=== PATIENT | male | born 1950 | race Caucasian/White ===

== ENCOUNTER 2024-06-04 15:50 | Inpatient (IN) | payer MEDICARE, BC, SELFPAY ==
[2024-06-04] VITALS (19 sets, daily range): BP systolic 150–193; BP diastolic 73–116; PULSE 74–101; RESP 16–21; TEMP 36.7; O2SAT 92–98; BMI 37.5; BMI 37.4
--- NOTE | 2024-06-04 15:50 | ECG_ITS ---
APPROVED REPORT Exam: Resting ECG HR:76 bpm ECG Measurements Heart Rate 76 AXES TX 192 P 40 QRSd 102 QRS -35 QT 396 T 13 QTc 427 Conclusion SINUS RHYTHM INDETERMINATE AXIS SEPTAL MYOCARDIAL INFARCTION , OF INDETERMINATE AGE [40+ ms Q WAVE IN V1/V2] No STEMI Electronically signed by : STARLA EPSTEIN, 06/05/2024 03:35:30
--- NOTE | 2024-06-04 16:28 | XR_ITS ---
PROCEDURE INFORMATION: Exam: XR Chest Exam date and time: 06/04/2024 4:39 PM Age: 74 years old Clinical indication: Other: Chest pain TECHNIQUE: Imaging protocol: Radiologic exam of the chest. Views: 1 view. COMPARISON: No relevant prior studies available. FINDINGS: Lungs: Unremarkable. No consolidation. Pleural spaces: Unremarkable. No pleural effusion. No pneumothorax. Heart/Mediastinum: Unremarkable. No cardiomegaly. Vasculature: Ectatic aorta. Bones/joints: Unremarkable. IMPRESSION: Ectatic aorta.
--- NOTE | 2024-06-04 16:39 | PC.NURSE ---
PORTABLE CHEST XRAY AT BEDSIDE
[2024-06-04 16:40] LABS: Basophils % 0.2 % (0.1-2.0); Eosinophils # 0.2 K/mm3 (0.0-0.4); Eosinophils % 1.8 % (0.1-12.0); Hemoglobin 14.7 g/dL (14.1-18.0); Lymphocytes # 1.5 K/mm3 (0.7-4.5); Lymphocytes % 17.7 % (10-50); Mean Corpuscular HGB Conc 33.4 g/dL (31.8-35.4); Mean Corpuscular Hemoglobin 28.5 pg (27.0-31.2); Mean Corpuscular Volume 85.3 fl (80-94); Mean Platelet Volume 9.9 fl (7.4-10.4); Monocytes # 0.9 K/mm3 (0.1-1.0); Monocytes % 11.2 % (1.7-9.3); Neutrophils # 5.8 K/mm3 (1.8-7.8); Neutrophils % 68.9 % (37.0-80.0); Platelet Count 267 K/mm3 (142-424); Red Blood Count 5.16 M/mm3 (4.60-6.20); Red Cell Distribution Width 13.2 % (11.5-17.5); White Blood Count 8.4 K/mm3 (4.8-10.8)
[2024-06-04 16:41] LABS: Albumin Level 4.4 g/dl (3.5-5.0); Chloride 105 mmol/L (98-107); Sodium 139 mmol/L (136-145)
[2024-06-04 16:42] LABS: Potassium 3.8 mmoL/L (3.5-5.1)
[2024-06-04 16:44] LABS: Alanine Aminotransferase 48 U/L (12-78); Albumin/Globulin Ratio 1.6 (1.1-1.8); Alkaline Phosphatase 71 U/L (38-126); Anion Gap 11.8 mEq/L (5-15); Aspartate Amino Transferase 48 U/L (17-59); Bilirubin,Total 0.5 mg/dl (0.2-1.3); Blood Urea Nitrogen 14 mg/dl (9-20); Carbon Dioxide 26 mmol/L (22.0-30.0); Creatinine Clearance Estimated 112 mL/min (50-200); Estimated Glomerular Filt Rate 65 ml/min (>60); GFR (African American) 79 ML/MIN (>60); Globulin 2.8 g/dL (1.3-3.2); Total Protein,Serum 7.2 g/dl (6.3-8.2)
[2024-06-04 16:45] LABS: Calcium 9.3 mg/dl (8.4-10.2); Glucose 133 mg/dl (74-100)
[2024-06-04 16:54] LABS: Microscopic, Urine URINE MICROSCOPIC (MICROSCOPIC)
[2024-06-04 16:56] LABS: Appearance,Urine CLEAR (Clear); Bilirubin,Urine Negative (Negative); Blood, Urine Negative (Negative); Color,Urine YELLOW (Yellow); Glucose,Urine (UA) Negative (Negative); Ketones,Urine Negative (Negative); Leukocyte Esterase,Urine TRACE (Negative); Nitrate,Urine Negative (Negative); PH,Urine 6.5 (5.0-8.5); Protein,Urine Negative (Negative); Urobilinogen,Urine 0.2 EU/dl (0.2)
--- NOTE | 2024-06-04 17:07 | ED_ITS ---
Discharge Plan Disposition Patient Disposition: Admitted Clinical Impressions Clinical Impression: Chest pain, ACS (acute coronary syndrome) Discharge ED Provider: Chicho Parra General Chief Complaint: Chest Pain Stated Complaint: CHEST PAIN Time Seen by Provider: 06/04/24 16:12 Mode of Arrival: Ambulatory Source of Information: Patient Description of Symptoms (Recalled from ER Triage Doc. by RN): pt presents to the er today L sided chest pain, jaw pain, L sided shoulder/ back pain, and shortness of breath for a week, states he was seen [facility] a week ago and dc from er, chest pain has been constant rating it 4/10 and hasn't gotten any better since last week, took 325 aspirin and 3 nitro today with minimal relief, has had 3 coronary stents placed in the past, sees dr rivas for cardiology, denies hx [place] History of Present Illness HPI narrative: Patient is 74-year-old male with past medical history of coronary artery disease status post stenting x 3 who presents to the emergency department for evaluation of chest pain. Onset was acute over a week ago, stuttering, does not have any particular inciting factors. He went to [place] where he was evaluated and deemed appropriate for discharge home. Due to persistent symptoms he comes here for continued evaluation. The chest pain goes through to his left shoulder blade as when he had his previous chest pain episodes that required stenting. No trauma. No other acute complaints at this time. Please note that above description of symptoms, in this electronic medical record under categorization of recalled from ER triage doctor by RN are reflective of an initial nursing assessment, however, is not reflective of my full history and physical exam that was personally taken and clarified. Consequentially, this preceding description of symptoms, which may include the patient's categorized chief complaint in the EMR, do not reflect my personal clinical impression, and the ultimate description of history of present illness and patient stated complaints should be deferred to this section of the note. Unless stated otherwise or congruent with this section of the note, additional signs, symptoms, or incongruence should be interpreted as inaccurate with my clinical impression. Related Data Home Medications ?Medication ?Instructions ?Recorded ?Confirmed amiodarone 200 mg tablet 200 mg PO DAILY 06/04/24 06/04/24 amlodipine 5 mg tablet 5 mg PO DAILY 06/04/24 06/04/24 carvedilol 3.125 mg tablet 3.125 mg PO BID 06/04/24 06/04/24 clopidogrel 75 mg tablet (Plavix) 75 mg PO DAILY 06/04/24 06/04/24 ezetimibe 10 mg tablet 10 mg PO DAILY 06/04/24 06/04/24 losartan 50 mg tablet 50 mg PO BID 06/04/24 06/04/24 rivaroxaban 10 mg tablet (Xarelto) 10 mg PO DAILY 06/04/24 06/04/24 sitagliptin phosphate 50 mg tablet 50 mg PO DAILY 06/04/24 06/04/24 (Januvia) Allergies Allergy/AdvReac Type Severity Reaction Status Date / Time Lnunpee-YLA-MeM Reductase Allergy Muscle Pain Verified 06/04/24 16:18 Inhibitor sulfamethoxazole (From Allergy Swelling Verified 06/04/24 16:18 Bactrim) of Lip/Tongue/Throat trimethoprim (From Bactrim) Allergy Swelling Verified 06/04/24 16:18 of Lip/Tongue/Throat PFSH ON LICENSE OF [facility] Disclaimer: The information contained in this section may have been updated after the patient was seen, as this information can be updated by other users. Medical History (Updated 06/04/24 @ 23:17 by Chicho Parra MD) Type 2 diabetes mellitus Hypertension A-fib History of colon cancer Social History Smoking Status: Never smoker alcohol intake: never current occupational status: other Travel in the last 8 weeks: None ROS Obtained: Yes Systems reviewed as appropriate & no additional complaints except as documented Physical Exam General General appearance: alert and in no apparent distress Head Head exam: atraumatic and normocephalic Eye Eye exam: Present PERRL ENT ENT exam: Present mucous membranes moist Neck Neck exam: Present normal inspection Chest Chest inspection: Present normal inspection and symmetric chest wall rise Respiratory Respiratory exam: Present normal lung sounds bilaterally; Absent respiratory distress Cardiovascular Cardiovascular exam: Present regular rate and normal rhythm Abdominal Exam Abdominal exam: Present soft; Absent tenderness Extremities Exam Extremities exam: Present normal inspection Neurological Exam Neurological exam: Present alert Psychiatric Psychiatric exam: Present normal affect Skin Skin exam: Present warm and dry HEART Score HEART Score HEART Score assessment performed?: Yes History (anamnesis): Highly suspicious ECG: Non-specific disturbance Age: >65 years Risk factors: Atherosclerosis history Troponin: > 3x normal limit HEART Score: 9 Critical Care Critical Care Time Critical Care Time: Yes Attestation: On 06/04/24, the high probability of a clinically significant, sudden or life threatening deterioration of the following system(s) required my full and direct attention, intervention and personal management. The time I documented below is in addition to time spent performing reported procedures but includes the following listed in this critical care notation. Total Time Total Critical Care Time: 35 Medical Decision Making Yung Inquiry Pt receiving controlled substance: No Vital Signs Vital Signs: 06/04/24 16:05 06/04/24 16:07 06/04/24 16:11 Temperature 98.1 F 98.1 F Temperature Source Oral Oral Pulse Rate 75 Pulse Rate [Left Radial] 81 75 Respiratory Rate 17 18 Blood Pressure Blood Pressure [Right Arm] 177/82 H 158/73 H Blood Pressure Mean Blood Pressure Mean [Right Arm] 113 101 Blood Pressure Source Blood Pressure Source [Right Arm] Automatic Cuff Automatic Cuff Blood Pressure Position Blood Pressure Position [Right Arm] Sitting Sitting 02 Sat by Pulse Oximetry 98 96 Oxygen Delivery Method Room Air Room Air 06/04/24 17:23 06/04/24 18:17 06/04/24 18:31 Temperature Temperature Source Pulse Rate 75 74 76 Pulse Rate [Left Radial] Respiratory Rate 20 17 Blood Pressure 150/96 H 151/84 H 171/87 H Blood Pressure [Right Arm] Blood Pressure Mean 105 Blood Pressure Mean [Right Arm] Blood Pressure Source Blood Pressure Source [Right Arm] Blood Pressure Position Blood Pressure Position [Right Arm] 02 Sat by Pulse Oximetry 97 97 97 Oxygen Delivery Method Room Air Room Air 06/04/24 19:01 06/04/24 19:22 06/04/24 19:39 Temperature 98.1 F Temperature Source Oral Pulse Rate 75 84 Pulse Rate [Left Radial] Respiratory Rate 16 21 Blood Pressure 150/87 H 150/87 H Blood Pressure [Right Arm] Blood Pressure Mean 113 Blood Pressure Mean [Right Arm] Blood Pressure Source Automatic Cuff Blood Pressure Source [Right Arm] Blood Pressure Position Supine Blood Pressure Position [Right Arm] 02 Sat by Pulse Oximetry 94 L Oxygen Delivery Method Room Air Room Air Lab Data Labs: Lab Results 06/04/24 16:10: WBC 8.4, RBC 5.16, Hgb 14.7, Hct 44.0, MCV 85.3, MCH 28.5, MCHC 33.4, RDW 13.2, Plt Count 267, MPV 9.9, Neut % (Auto) 68.9, Lymph % (Auto) 17.7, [place] % (Auto) 11.2 H, Eos % (Auto) 1.8, Baso % (Auto) 0.2, Neut # (Auto) 5.8, Lymph # (Auto) 1.5, [place] # (Auto) 0.9, Eos # (Auto) 0.2, Baso # (Auto) 0.0, Sodium 139, Potassium 3.8, Chloride 105, Carbon Dioxide 26, Anion Gap 11.8, BUN 14, Creatinine 1.10, Estimated Creat Clear 112, Estimated GFR 65, Est GFR ( Amer) 79, Glucose 133 H, Calcium 9.3, Total Bilirubin 0.5, AST 48, ALT 48, Alkaline Phosphatase 71, Troponin I 1.70 H, Total Protein 7.2, Albumin 4.4, Globulin 2.8, Albumin/Globulin Ratio 1.6, HCV Ab ARTHUR w/Rflx PCR Qn Negative, HIV Ag/Ab Combo Qual Negative 06/04/24 16:45: Urine Color Yellow, Urine Appearance Clear, Urine pH 6.5, Ur Specific Girard 1.020, Urine Protein Negative, Urine Glucose (UA) Negative, Urine Ketones Negative, Urine Blood Negative, Urine Nitrate Negative, Urine Bilirubin Negative, Urine Urobilinogen 0.2, Ur Leukocyte Esterase Trace, Urine RBC None, Urine WBC 3-5, Ur Squamous Epith Cells None, Urine Bacteria None 06/04/24 18:46: Sodium 137, Potassium 3.7, Chloride 104, Carbon Dioxide 25, Anion Gap 11.7, BUN 13, Creatinine 1.10, Estimated Creat Clear 112, Estimated GFR 65, Est GFR ( Amer) 79, Glucose 114 H, Calcium 8.9, Troponin I 2.20 H 06/04/24 16:10 06/04/24 18:46 Response Orders (Tests/Meds): ED MEDICATIONS Generic Name Dose Route Start Last Admin Trade Name Freq PRN Reason Stop Dose Admin Amiodarone HCl 200 mg 06/05/24 09:00 Amiodarone 200mg Tablet PO 07/05/24 08:59 DAILY BONITA Amlodipine Besylate 5 mg 06/05/24 09:00 Amlodipine 5mg Tablet PO 07/05/24 08:59 DAILY BONITA Aspirin 81 mg 06/05/24 09:00 Aspirin Ec 81mg Tablet PO 07/05/24 08:59 DAILY BONITA Carvedilol 6.25 mg 06/04/24 21:45 06/04/24 22:50 Carvedilol 6.25mg Tablet PO 07/04/24 21:44 6.25 mg BID BONITA Administration Clopidogrel Bisulfate 75 mg 06/05/24 09:00 Clopidogrel 75mg Tab PO 07/05/24 08:59 DAILY BONITA Ezetimibe 10 mg 06/05/24 09:00 Ezetimibe 10mg Tablet PO 07/05/24 08:59 DAILY BONITA Fentanyl Citrate 50 mcg 06/04/24 19:27 06/04/24 20:26 Fentanyl 100mcg/2ml Vial IV 06/05/24 07:28 100 mcg Q3MINP PRN Administration Sedation Fentanyl Citrate 25 mcg 06/04/24 19:27 Fentanyl 100mcg/2ml Vial IV 06/05/24 07:28 Q3MINP PRN Sedation Flumazenil 0.2 mg 06/04/24 19:27 Flumazenil 0.1mg/Ml 5ml Vial IV 06/05/24 07:28 NEEDED PRN Sedation Heparin Sodium (Porcine) 10,000 unit 06/04/24 19:27 06/04/24 20:26 Heparin 1,000 Units/Ml 10ml Vial (Product Strategy Director) IV 06/04/24 23:28 13,600 unit NEEDED PRN Administration Emergency Box Toe Pounder Hydralazine HCl 20 mg 06/04/24 19:27 Hydralazine 20mg/Ml Vial IV 06/04/24 23:28 ONCE PRN sbp>160 Nitroglycerin/Dextrose 250 mls @ 1.5 mls/hr 06/04/24 17:30 06/04/24 18:36 Nitroglycerin 50mg/250ml D5w IV 07/04/24 17:29 10 mcg/min .Q24H BONITA 3 mls/hr Titration Protocol 5 MCG/MIN Adenosine 180 mg/ Sodium 90 mls @ 734.821 mls/hr 06/04/24 19:27 Chloride IV 06/04/24 23:28 ONCE PRN fractional flow reserve 180 MCG/KG/MIN Adenosine 90 mg/ Sodium 90 mls @ 1,469.642 mls/hr 06/04/24 19:27 Chloride IV 06/04/24 23:28 ONCE PRN fractional flow reserve 180 MCG/KG/MIN Sodium Chloride 1,000 mls @ 25 mls/hr 06/04/24 19:30 06/04/24 22:32 Sod Chloride 0.9% 500ml Bag IV 06/05/24 19:28 Not Given .Q25H BONITA Irbesartan 75 mg 06/05/24 09:00 Irbesartan 75mg Tablet PO 07/05/24 08:59 BID BONITA Labetalol HCl 20 mg 06/04/24 19:27 Labetalol 20mg/4ml Syringe IV 06/04/24 23:28 ONCE PRN sbp>160 Midazolam HCl 1 mg 06/04/24 19:27 Midazolam 2mg/2ml Vial IV 06/05/24 07:28 Q3MINP PRN Sedation Midazolam HCl 1 mg 06/04/24 19:27 06/04/24 20:26 Midazolam Hcl 1mg/Ml 5ml Vial IV 06/05/24 07:28 8 mg Q3MINP PRN Administration Sedation Miscellaneous 1 each 06/04/24 21:09 Consider Pt For Dual Antiplatelet Therapy At Discharge-Stent NOTAPPLIC 07/04/24 21:08 NEEDED PRN Reminder for s/p stent Naloxone HCl 0.4 mg 06/04/24 19:27 Naloxone 0.4mg/Ml Vial IV 06/05/24 07:28 Q5MINP PRN Decreased Respirations Nitroglycerin 800 mcg 06/04/24 19:27 06/04/24 20:27 Nitroglycerin 800mcg/8ml Syr (Product Strategy Director) IA 06/04/24 23:28 800 mcg NEEDED PRN Administration Emergency Box Toe Pounder Nitroglycerin 0.4 mg 06/04/24 21:09 Nitroglycerin 0.4mg Sl Tablet SL 07/04/24 21:08 Q5MINP PRN Chest Pain Protamine Sulfate 50 mg 06/04/24 19:27 Protamine Sulfate 50mg/5ml Vial (Product Strategy Director) IV 06/04/24 23:28 ONCE PRN act>200 Rivaroxaban 10 mg 06/05/24 09:00 Rivaroxaban 10mg Tablet PO 07/05/24 08:59 DAILY BONITA Sitagliptin Phosphate 50 mg 06/05/24 09:00 Sitagliptin 50mg Tablet PO 07/05/24 08:59 DAILY BONITA Sodium Chloride 10 ml 06/04/24 19:27 Sodium Chloride 0.9% 10ml Flush Syringe IV 07/04/24 19:26 NEEDED PRN Maintain IV Site Discontinued Medications Generic Name Dose Route Start Last Admin Trade Name Fidel PRN Reason Stop Dose Admin Clopidogrel Bisulfate 600 mg 06/04/24 21:03 06/04/24 21:05 Clopidogrel 300mg Tablet PO 06/04/24 21:04 600 mg ONCE ONE Administration Diphenhydramine HCl 50 mg 06/04/24 19:27 06/04/24 20:25 Diphenhydramine 50mg/Ml Vial IV 06/04/24 19:28 50 mg ONCE ONE Administration Enoxaparin Sodium 135 mg 06/04/24 17:30 06/04/24 17:25 Enoxaparin 150mg/Ml Syringe SUBCUT 06/04/24 17:31 135 mg ONCE ONE Administration Heparin Sodium/Sodium Chloride 3,000 unit 06/04/24 19:27 06/04/24 20:25 Heparin 1,000 Units/500ml Ns (Product Strategy Director) IV 06/04/24 19:28 3,000 unit ONCE ONE Administration Iopamidol 70 ml 06/04/24 17:40 06/04/24 17:43 Iopamidol-370 (76%);100ml Bottle IV 06/04/24 17:41 70 ml ONCE ONE Administration Iopamidol 280 ml 06/04/24 21:09 06/04/24 21:10 Iopamidol-370 (76%);100ml Bottle IV 06/04/24 21:10 280 ml ONCE ONE Administration Lidocaine HCl 20 ml 06/04/24 19:27 06/04/24 22:32 Lidocaine 1% 10ml Mdv IJ 06/04/24 19:28 Not Given ONCE ONE Lidocaine HCl 20 ml 06/04/24 19:27 06/04/24 22:32 Lidocaine 1% 5ml Pf Vial IJ 06/04/24 19:28 Not Given ONCE ONE Sodium Chloride 50 ml 06/04/24 17:40 06/04/24 17:43 0.9 % Sodium Chloride 50 Ml Vial IV 06/04/24 17:41 50 ml ONCE ONE Administration Sodium Chloride 10 ml 06/04/24 17:40 06/04/24 17:43 Sodium Chloride 0.9% 10ml Syr (Rad Only) IV 04/04/25 17:41 10 ml ONCE ONE Administration Verapamil HCl 2.5 mg 06/04/24 19:27 06/04/24 20:25 Verapamil 2.5mg/Ml 2ml Vial IV 06/04/24 19:28 2.5 mg ONCE ONE Administration ORDERS Category Date Time Status CT angio chest - dissection Stat Cat Scan 06/04/24 17:18 Completed XR chest portable Stat Exams 06/04/24 16:28 Completed Basic Metabolic Panel Stat Lab 06/04/24 18:46 Completed Complete Blood Count Auto Diff Stat Lab 06/04/24 16:10 Completed Comprehensive Metabolic Panel Stat Lab 06/04/24 16:10 Completed HIV Combo Stat Lab 06/04/24 16:10 Completed Hepatitis C Ab Qual. W/ RFX Stat Lab 06/04/24 16:10 Completed Troponin I Q3H Lab 06/04/24 18:46 Completed Troponin I Stat Lab 06/04/24 16:10 Completed UA [Urinalysis and Microscopic] Stat Lab 06/04/24 16:45 Completed ECG Data Tracing #1: ECG Narrative: Independently inter by me rate 76, rhythm is regular, axis is borderline rightward deviated, no ST elevation in anatomical contiguous leads, QTc 427. MDM Narrative Medical Decision Narrative: In summary patient is a 74-year-old male past medical history described above presents emerged part for evaluation chest pain. Patient is hemodynamically stable nontoxic-appearing upon arrival, afebrile. EKG at bedside has Q waves in the septal leads, no baseline. No ST elevation in anatomical contiguous leads. Differential includes ACS, noncardiac chest pain, dissection, among others. Workup be conducted with hematologic labs, CTA chest. Patient had full dose aspirin at home. Initial troponin call by lab is 1.7 extremely high. I discussed case with Dr. Raman regarding management. Patient's chest pain is now a 3 out of 10. Will start with Lovenox and nitroglycerin drip to see if we can improve it. CT angio chest will be conducted. Will put in observation status to see if patient will benefit from admission versus emergent catheterization. The patient was placed in observation status at 1730. CTA chest no dissection or aneurysm, patient had persistent but improving chest pain on exam and troponin is uptrending we will proceed to heart catheterization at this time. Total time in observation 30 minutes.
--- NOTE | 2024-06-04 17:14 | PC.NURSE ---
PAGED DR MACK
--- NOTE | 2024-06-04 17:15 | PC.NURSE ---
DR FRANCO IS SPEAKING TO DR MACK AT THIS TIME
--- NOTE | 2024-06-04 17:18 | CT_ITS ---
PROCEDURE INFORMATION: Exam: CTA Chest With Contrast Exam date and time: 06/04/2024 5:45 PM Age: 74 years old Clinical indication: Pain; Radiating; Additional info: Cp to back pos trop TECHNIQUE: Imaging protocol: Computed tomographic angiography of the chest with contrast. Exam focused on the arteries. 3D rendering (Not supervised by radiologist): MIP and/or 3D reconstructed images were created by the technologist. Radiation optimization: All CT scans at this facility use at least one of these dose optimization techniques: automated exposure control; mA and/or kV adjustment per patient size (includes targeted exams where dose is matched to clinical indication); or iterative reconstruction. Contrast material: ISOVUE 370; Contrast volume: 80 ml; Contrast route: INTRAVENOUS (IV); COMPARISON: CR XR CHEST PORTABLE 06/04/2024 16:39 FINDINGS: Pulmonary arteries: Normal. No pulmonary emboli. Aorta: Aortic atherosclerosis. Lungs: Unremarkable. No consolidation. No masses. Pleural spaces: Unremarkable. No pneumothorax. No pleural effusion. Heart: Unremarkable. No cardiomegaly. No pericardial effusion. Coronary arteries: Coronary artery atherosclerosis. Lymph nodes: Calcified mediastinal and bilateral hilar granulomata. No enlarged lymph nodes. Kidneys: Partially imaged simple appearing cysts in the visualized kidneys. Bones/joints: Degenerative changes of the spine. Soft tissues: Unremarkable. IMPRESSION: 1. No CT evidence of thoracic aortic dissection or aneurysm. 2. Additional chronic/nonemergent findings as detailed above. COMMENTS: Consistent with the [employer]'s Incidental Findings Committee white paper (J Am Abiel Radiol 2018): Any incidental renal lesion less than 1 cm or classified as too small to characterize, or any incidental cystic renal lesion characterized as simple-appearing, is likely benign. No follow-up imaging is recommended for these lesions per consensus recommendations based on imaging criteria.
[2024-06-04] MEDS: ENOXAPARIN 150MG/ML SYRINGE 135 MG SUBCUT (17:25)
[2024-06-04] MEDS: NITROGLYCERIN IN 5 % DEXTROSE 250 ML 1.5 MG IV (17:25)
[2024-06-04 17:33] LABS: HIV Combo NEGATIVE (Negative)
--- NOTE | 2024-06-04 17:40 | PC.NURSE ---
PT TRANSPORTED TO CT WITH Young YANG RN
[2024-06-04 17:42] LABS: Hepatitis C Ab Qual. W/ RFX NEGATIVE (Negative)
[2024-06-04] MEDS: SODIUM CHLORIDE 0.9% 10ML SYR (RAD ONLY) 10 ML IV (17:43)
[2024-06-04] MEDS: IOPAMIDOL-370 (76%);100ML BOTTLE 70 ML IV (17:43)
[2024-06-04] MEDS: 0.9 % SODIUM CHLORIDE 50 ML VIAL IV (17:43)
--- NOTE | 2024-06-04 17:50 | PC.NURSE ---
PT RETURNED FROM CT WITH Young YANG RN
--- NOTE | 2024-06-04 18:06 | PC.NURSE ---
DR FRANCO AT BEDSIDE TO UPDATE PT
--- NOTE | 2024-06-04 18:09 | PC.NURSE ---
DR FRANCO IS SPEAKING TO DR KIRK AT THIS TIME
--- NOTE | 2024-06-04 18:39 | PC.NURSE ---
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
--- NOTE | 2024-06-04 18:39 | PC.NURSE ---
PT IN A GOWN, CONSENT SIGNED, HAIR CLIPPED IN PREPARATION FOR SOCIAL SERVICES DESIGNEE
--- NOTE | 2024-06-04 18:47 | PC.NURSE ---
NOTIFIED LAB OF SECOND TROP BEING SENT UP AT THIS TIME
--- NOTE | 2024-06-04 19:20 | PC.NURSE ---
Dr Parra notified of critical troponin
--- NOTE | 2024-06-04 19:20 | PC.NURSE ---
Addendum entered by Karen Calvo RN 06/04/24 19:26: with Holland Araujo RN and Laya LONG Original Note: Pt to photo lab specialist at this time with Holland Araujo RN and Ryan Langston Medic
--- NOTE | 2024-06-04 19:25 | IR_ITS ---
APPROVED REPORT Patient Location: Outpatient PROCEDURES Selective coronary angiogram Drug-eluting stent deployment to the proximal mid and distal dominant right coronary Drug-eluting stent deployment to the ostial proximal LAD Drug-eluting stent deployment to the circumflex artery extending into a large second obtuse marginal artery INDICATION Acute non-ST elevation myocardial infarction, Coronary artery disease Informed consent was obtained prior to the procedure. COMPLICATIONS none Estimated Blood Loss: less than 10ml TECHNIQUE One percent lidocaine used to anesthetize the right anterior aspect of the wrist. The right radial artery was accessed via the Seldinger technique. A 6 [place]uran sheath was placed in the right radial artery. 2.5 mg of Verapamil, 800 mcg of nitroglycerin, 1mg Lidocaine and 5000 U Heparin were given through the arterial sheath. The 6 [place]uran JL 3 guide catheter was used to perform selective coronary angiogram. At the end the diagnostic angiogram therapeutic heparin was administered given a therapeutic ACT and the guide catheter was placed in the right coronary followed by Choice PT extra-support wire placed distally. A guide liner was used for support and a 4 mm x 38 mm Guerrero frontier stent was deployed in the proximal segment at 20 katelyn. Following this a 4 mm x 26 mm Liberty frontier stent was placed distal to the for stent yet still overlapping and deployed at 16 katelyn. An additional 3.5 x 12 mm Liberty frontier stent was placed distal to the for stent and deployed at 18 katelyn. The balloon was brought back and deployed at 20 katelyn to post dilate. The 4 mm x 26 mm balloon was deployed at 20 katelyn throughout the mid proximal segment of the right coronary artery. GREGORY-3 flow was present before and after the procedure. Following this the guide catheter was placed back in the left main artery followed by the BMW wire placed into the mid to distal LAD. A 3.5 x 38 mm Guerrero frontier stent was deployed at 20 katelyn reducing the stenosis. An additional 3.5 x 15 mm Liberty frontier stent was placed in the ostium of the left main artery overlapping the proximal portion of the 38 mm stent and deployed at 20 katelyn. The balloon was advanced and deployed at 20 katelyn to match the stents into further post dilate the 38 mm stent. Following this the wire was placed into the second obtuse marginal artery and a 3.5 x 12 mm Liberty frontier stent was deployed at 18 katelyn reducing the severe stenosis to 0%. GREGORY-3 flow was present before and after the procedure and all vessels including the right coronary artery LAD and second obtuse marginal artery. At the end the procedure the apparatus was removed sheath was removed and hemostasis was achieved using TR banding patient was transferred to the postop putting in stable condition ANGIOGRAPHIC RESULTS The left main artery Normal The left anterior descending artery Has a stent in the proximal segment which has 60 to 70% in-stent restenosis. There is an additional 70% mid vessel LAD stenosis The circumflex artery Is a large codominant vessel and has proximal 30 to 40% stenosis with a 40% stenosis in the ostium of the first obtuse marginal artery followed by 40% stenosis. A large bifurcating second obtuse marginal artery has an ostial 90% concentric stenosis. The right coronary artery Is a large codominant vessel and has proximal 40% eccentric stenosis a 60% stenosis followed by a concentric 70% stenosis in the midportion. The posterior descending artery has an ostial 80% stenosis while the posterior lateral branch has an ostial 60% stenosis. The HINSON ventriculogram reveals Not performed The left ventricular end-diastolic pressure Not measured IMPRESSION Severe coronary disease as described above Successful reconstruction of the proximal mid and distal right coronary severe disease reduced to 0% with 3 contiguous drug-eluting stents Persistent moderate to severe disease in the posterior descending artery and posterior lateral branch which should not be stented at this time due to their patency. Revascularizing this would require bifurcating stents or double barrel stents which are not advised. I believe medical management is most warranted Successful stenting of the ostial proximal LAD severe disease reduced to 0% with 2 contiguous drug-eluting stents Successful stenting of a large second obtuse marginal artery severe disease reduced to 0% with 1 drug-eluting stent Paroxysmal atrial fibrillation PLAN 1. Triple therapy using aspirin Plavix and Xarelto for 30 days followed by discontinuation of aspirin 2. LDL less than 55 to achieve that high intensity statin 3. Avoidance of tobacco products 4. Risk factor modification 5. Cardiac rehabilitation 6. AZAEL inhibitor's or ARB's combined with beta-blockers 7. Patient was experiencing significant episodes of atrial fibrillation therefore rate control might be required with up titration of beta-blockers Electronically signed by : Andrea Raman MD 06/04/2024 21:00:48
[2024-06-04 19:49] LABS: Chloride 104 mmol/L (98-107); Potassium 3.7 mmoL/L (3.5-5.1); Sodium 137 mmol/L (136-145)
[2024-06-04 19:52] LABS: Anion Gap 11.7 mEq/L (5-15); Blood Urea Nitrogen 13 mg/dl (9-20); Calcium 8.9 mg/dl (8.4-10.2); Carbon Dioxide 25 mmol/L (22.0-30.0); Creatinine Clearance Estimated 112 mL/min (50-200); Estimated Glomerular Filt Rate 65 ml/min (>60); GFR (African American) 79 ML/MIN (>60); Glucose 114 mg/dl (74-100)
[2024-06-04] MEDS: diphenhydrAMINE 50MG/ML VIAL 50 MG IV (20:25)
[2024-06-04] MEDS: HEPARIN 1,000 UNITS/500ML NS (CATH LAB) 3000 UNIT IV (20:25)
[2024-06-04] MEDS: VERAPAMIL 2.5MG/ML 2ML VIAL 2.5 MG IV (20:25)
[2024-06-04] MEDS: FENTANYL 100MCG/2ML VIAL 50 MCG IV (20:26)
[2024-06-04] MEDS: MIDAZOLAM HCL 1MG/ML 5ML VIAL 1 MG IV (20:26)
[2024-06-04] MEDS: HEPARIN 1,000 UNITS/ML 10ML VIAL (CATH LAB) 10000 UNIT IV (20:26)
[2024-06-04] MEDS: NITROGLYCERIN 800MCG/8ML SYR (CATH LAB) 800 MCG IA (20:27)
[2024-06-04] MEDS: CLOPIDOGREL 300MG TABLET 600 MG PO (21:05)
[2024-06-04] MEDS: IOPAMIDOL-370 (76%);100ML BOTTLE 280 ML IV (21:10)
[2024-06-04 21:17] LABS: CATHL Activated Clotting Time 304 SEC (74-125)
[2024-06-04 21:17] LABS: CATHL Activated Clotting Time > 400 SEC (74-125)
[2024-06-04] MEDS: CARVEDILOL 6.25MG TABLET 6.25 MG PO (22:50)
--- NOTE | 2024-06-04 23:14 | EXP.HP ---
History of Present Illness *Admission Date: 06/04/24 *Reason for visit:: Chest pain *History of present illness: This is a 74-year-old male with past medical history of A-fib on Xarelto and amiodarone, hypertension, CAD s/p [address] Glass who presents emergency department today with complaints of midsternal chest pain with radiation to left jaw and left arm. Patient reports pain was stabbing in nature with associated pressure. States he had an episode last week and was seen in other outside hospital with a negative ischemic workup at that time. States that he developed worsening pain with some pain through to his shoulder blades which was typical for him for needing a stent. Emergency department workup notable for elevated troponin of 1.7 with increased to 2.2 with noted Q waves on EKG. Patient was taken to the [facility] and underwent successful stenting of 6 total stents (3 LAD, 1 circumflex, 1 RCA). Throughout catheterization he was noted to be persistently in A-fib but remained stable throughout procedure. Postoperatively he was mildly hypertensive with systolic blood pressure in the 180s but otherwise states that his pain is much improved He is admitted to the hospitalist service at this time [facility] Disclaimer: The information contained in this section may have been updated after the patient was seen, as this information can be updated by other users. Medical History (Updated 06/04/24 @ 23:27 by JOHNNIE Ortiz) Type 2 diabetes mellitus (06/04/24) Hypertension A-fib History of colon cancer Social History (Updated 06/04/24 @ 23:17 by Chicho Parra MD) Smoking Status: Never smoker alcohol intake: never current occupational status: other Travel in the last 8 weeks: None Have you lived/traveled outside [place] in past 30 days?: No Contact w/someone who lives/traveled outside US past 30 days?: No Exposure to someone with infectious disease in past 14 days?: No Do you have a fever (greater than 100.4 F or 38 C)?: No Have you tested positive for COVID-19: No Exposed to someone with COVID-19 in past 14 days?: No Do you have a sore throat?: No Do you have a cough?: No Do you have any weakness?: No Do you have any diarrhea?: No Are you experiencing any unusual bleeding?: No Do you have any muscle aches/pain?: No Do you have any abdominal pain?: No Are you experiencing loss of taste or smell?: No Other Medical History Have you received the Flu Vaccine for this season: No Have you received the Pneumonia Vaccine: No Review of Systems Review of Systems Review of systems:: pertinent systems reviewed and negative unless documented below Review of systems (narrative): Negative except for HPI Meds Home Medications and Allergies Home Medications ?Medication ?Instructions ?Recorded ?Confirmed ?Type amiodarone 200 mg tablet 200 mg PO DAILY 06/04/24 06/04/24 History clopidogrel 75 mg tablet (Plavix) 75 mg PO DAILY 06/04/24 06/04/24 History ezetimibe 10 mg tablet 10 mg PO DAILY 06/04/24 06/04/24 History losartan 50 mg tablet 50 mg PO BID 06/04/24 06/04/24 History rivaroxaban 10 mg tablet (Xarelto) 10 mg PO QPMWITHMEAL 06/04/24 06/05/24 History sitagliptin phosphate 50 mg tablet 50 mg PO DAILY 06/04/24 06/04/24 History (Januvia) aspirin 81 mg tablet,delayed 81 mg PO DAILY 30 days #30 tabs 06/05/24 Rx release carvedilol 12.5 mg tablet 12.5 mg PO BID 30 days #60 tabs 06/05/24 Rx cholecalciferol (vitamin D3) 50 50 mcg PO DAILY 06/05/24 06/05/24 History mcg (2,000 unit) tablet nitroglycerin 0.4 mg sublingual 0.4 mg sublingual Q5MINP PRN Chest 06/05/24 06/05/24 History tablet Pain New Prescriptions to Start Prescriptions: aspirin Dc Carter carvedilol Dc Carter Allergies Allergy/AdvReac Type Severity Reaction Status Date / Time [id number] Reductase Allergy Muscle Pain Verified 06/04/24 16:18 Inhibitor sulfamethoxazole (From Allergy Swelling Verified 06/04/24 16:18 Bactrim) of Lip/Tongue/Throat trimethoprim (From Bactrim) Allergy Swelling Verified 06/04/24 16:18 of Lip/Tongue/Throat Exam Data for Last 24 hours Vital signs and Labs for Last 24 Hours: Temp Pulse Resp BP Pulse Ox O2 Del Method 98.1 F 101 H 20 154/97 H 92 L Room Air 06/04/24 19:22 06/04/24 22:40 06/04/24 22:40 06/04/24 22:40 06/04/24 22:40 06/04/24 22:40 Laboratory Results - last 24 hr 06/04/24 16:10: WBC 8.4, RBC 5.16, Hgb 14.7, Hct 44.0, MCV 85.3, MCH 28.5, MCHC 33.4, RDW 13.2, Plt Count 267, MPV 9.9, Neut % (Auto) 68.9, Lymph % (Auto) 17.7, Finney % (Auto) 11.2 H, Eos % (Auto) 1.8, Baso % (Auto) 0.2, Neut # (Auto) 5.8, Lymph # (Auto) 1.5, Finney # (Auto) 0.9, Eos # (Auto) 0.2, Baso # (Auto) 0.0, Sodium 139, Potassium 3.8, Chloride 105, Carbon Dioxide 26, Anion Gap 11.8, BUN 14, Creatinine 1.10, Estimated Creat Clear 112, Estimated GFR 65, Est GFR ( Amer) 79, Glucose 133 H, Calcium 9.3, Total Bilirubin 0.5, AST 48, ALT 48, Alkaline Phosphatase 71, Troponin I 1.70 H, Total Protein 7.2, Albumin 4.4, Globulin 2.8, Albumin/Globulin Ratio 1.6, HCV Ab ARTHUR w/Rflx PCR Qn Negative, HIV Ag/Ab Combo Qual Negative 06/04/24 16:45: Urine Color Yellow, Urine Appearance Clear, Urine pH 6.5, Ur Specific [place] 1.020, Urine Protein Negative, Urine Glucose (UA) Negative, Urine Ketones Negative, Urine Blood Negative, Urine Nitrate Negative, Urine Bilirubin Negative, Urine Urobilinogen 0.2, Ur Leukocyte Esterase Trace, Urine RBC None, Urine WBC 3-5, Ur Squamous Epith Cells None, Urine Bacteria None 06/04/24 18:46: Sodium 137, Potassium 3.7, Chloride 104, Carbon Dioxide 25, Anion Gap 11.7, BUN 13, Creatinine 1.10, Estimated Creat Clear 112, Estimated GFR 65, Est GFR ( Amer) 79, Glucose 114 H, Calcium 8.9, Troponin I 2.20 H 06/04/24 20:15: Activated Clotting Time > 400 H* 06/04/24 20:31: Activated Clotting Time 304 H* D I & O for Last 24 hours: Intake & Output 06/01/24 06/02/24 06/03/24 06/04/24 23:59 23:59 23:59 23:59 Intake Total 1.775 / 1.775 Output Total 1200 / 1200 Balance -1198.225 / -1198.225 Weight 136.078 kg Constitutional Constitutional: no acute distress *Routine HEENT Exam Head: Present normocephalic Eye: Present EOMI and PERRL ENT: Present mucous membranes moist *Routine Neck Exam Neck: Present supple; Absent lymphadenopathy *Routine Respiratory Exam Respiratory: Present CTA bilaterally *Routine Cardiovascular Exam Cardiovascular: Present RRR *Routine Abdominal Exam Abdominal: Present soft and normoactive bowel sounds; Absent tenderness *Routine Rectal Exam Rectal:: deferred *Routine Genitalia Exam Genitalia:: deferred *Routine Extremities Exam Extremities: Absent cyanosis, clubbing or edema *Routine Skin Exam Skin: Present warm; Absent rash *Routine Neurological Exam Neurological: Present alert and oriented X3 Assessment and Plan *Assessment and plan (1) ACS (acute coronary syndrome): Status: Acute Category: Medical Code(s): I24.9 - Acute ischemic heart disease, unspecified (2) Chest pain: Status: Acute Category: Medical Code(s): R07.9 - Chest pain, unspecified (3) Atrial fibrillation: Status: Acute Category: Medical Code(s): I48.91 - Unspecified atrial fibrillation (4) Type 2 diabetes mellitus: Status: Acute Category: Medical Code(s): E11.9 - Type 2 diabetes mellitus without complications (5) Hypertension: Status: Acute Category: Medical Code(s): I10 - Essential (primary) hypertension Plan #ACS Underwent successful PCI with 6 stents (3 LAD, 1 circumflex, 2 RCA) Continue triple therapy, aspirin Plavix and Xarelto Continue home statin medication Avoid tobacco products Continue losartan, carvedilol (will increase dose to 6.25 twice daily given persistent atrial fibrillation while Intracath and hypertensive post cath) #Atrial fibrillation Increase carvedilol dosing, continue Xarelto #DM 2 Sliding scale insulin hold oral antidiabetics #Hypertension Continue home medications
[2024-06-05] VITALS (11 sets, daily range): BP systolic 119–148; BP diastolic 65–88; PULSE 69–107; RESP 12–25; TEMP 36.6–37; O2SAT 93–96; BMI 37.3
[2024-06-05 07:21] LABS: Basophils % 0.3 % (0.1-2.0); Eosinophils # 0.1 K/mm3 (0.0-0.4); Eosinophils % 0.8 % (0.1-12.0); Hematocrit 45.4 % (42.0-52.0); Hemoglobin 15.4 g/dL (14.1-18.0); Lymphocytes # 1.3 K/mm3 (0.7-4.5); Lymphocytes % 13.8 % (10-50); Mean Corpuscular HGB Conc 33.9 g/dL (31.8-35.4); Mean Corpuscular Hemoglobin 28.7 pg (27.0-31.2); Mean Corpuscular Volume 84.5 fl (80-94); Mean Platelet Volume 10.1 fl (7.4-10.4); Monocytes # 1.1 K/mm3 (0.1-1.0); Monocytes % 11.8 % (1.7-9.3); Neutrophils # 6.7 K/mm3 (1.8-7.8); Platelet Count 273 K/mm3 (142-424); Red Blood Count 5.37 M/mm3 (4.60-6.20); Red Cell Distribution Width 13.2 % (11.5-17.5); White Blood Count 9.1 K/mm3 (4.8-10.8)
[2024-06-05 07:25] LABS: Chloride 101 mmol/L (98-107); Sodium 136 mmol/L (136-145)
[2024-06-05 07:26] LABS: Potassium 3.7 mmoL/L (3.5-5.1)
[2024-06-05 07:28] LABS: Blood Urea Nitrogen 11 mg/dl (9-20); Creatinine Clearance Estimated 123 mL/min (50-200); Estimated Glomerular Filt Rate 73 ml/min (>60); GFR (African American) 88 ML/MIN (>60)
[2024-06-05 07:29] LABS: Anion Gap 13.7 mEq/L (5-15); Carbon Dioxide 25 mmol/L (22.0-30.0); Glucose 157 mg/dl (74-100)
[2024-06-05] MEDS: IRBESARTAN 75MG TABLET 75 MG PO (09:37)
[2024-06-05] MEDS: EZETIMIBE 10MG TABLET 10 MG PO (09:38)
[2024-06-05] MEDS: AMIODARONE 200MG TABLET 200 MG PO (09:38)
[2024-06-05] MEDS: SITAGLIPTIN 50MG TABLET 50 MG PO (09:38)
[2024-06-05] MEDS: ASPIRIN EC 81MG TABLET 81 MG PO (09:39)
[2024-06-05] MEDS: AMLODIPINE 5MG TABLET 5 MG PO (09:39)
[2024-06-05] MEDS: CARVEDILOL 6.25MG TABLET 6.25 MG PO (09:40)
[2024-06-05] MEDS: CLOPIDOGREL 75MG TAB 75 MG PO (09:40)
--- NOTE | 2024-06-05 10:31 | PC.NURSE ---
Patient able to walk to bathroom and back to chair.
--- NOTE | 2024-06-05 10:50 | HMH.PHAINT1 ---
Pharmacy Intervention Comments: MEDICATION RECONCILIATION COMPLETE USING EXTERNAL PHARMACY FILL HISTORY.
--- NOTE | 2024-06-05 11:33 | EXP.DC.SUM ---
General Admission date:: 06/04/24 Discharge date: 06/05/24 HPI HPI HPI: This is a 74-year-old male with past medical history of A-fib on Xarelto and amiodarone, hypertension, CAD s/p [address] Glass who presents emergency department today with complaints of midsternal chest pain with radiation to left jaw and left arm. Patient reports pain was stabbing in nature with associated pressure. States he had an episode last week and was seen in other outside hospital with a negative ischemic workup at that time. States that he developed worsening pain with some pain through to his shoulder blades which was typical for him for needing a stent. Emergency department workup notable for elevated troponin of 1.7 with increased to 2.2 with noted Q waves on EKG. Patient was taken to the [facility] and underwent successful stenting of 6 total stents (3 LAD, 1 circumflex, 1 RCA). Throughout catheterization he was noted to be persistently in A-fib but remained stable throughout procedure. Postoperatively he was mildly hypertensive with systolic blood pressure in the 180s but otherwise states that his pain is much improved He is admitted to the hospitalist service at this time Hospital Course Hospital Course Hospital Course: 74-year-old male with history of diabetes and CAD. Previous stents placed several years ago. Presented with chest pain. Concern for unstable angina. Patient taken to [facility] from the ER. Found to have significant occlusive disease. Underwent PCI with placement of 6 stents (3 LAD, 1 circumflex, 2 RCA). Patient feeling much better by morning. Initiated on triple therapy with aspirin, Plavix, Xarelto. Will continue triple therapy for 1 month and de-escalate to Plavix and Xarelto thereafter. Will continue home ezetimibe due to intolerance of statin. Further management of cholesterol as an outpatient with cardiology. Patient noted to have some A-fib and faster heart rates around the time of his heart cath. Will discontinue his home amlodipine. Increase carvedilol to 12.5 mg twice daily. Continue home amiodarone 200 mg daily. Continue Januvia 50 mg daily for diabetes Patient feeling much better by morning. Stable to discharge home. Follow-up with cardiology on Friday. Kidney function normal with BUN 11, creatinine 1.0. Total time spent on discharge 32 minutes in counseling, documentation, discussion with subspecialist, chart review, and direct care with patient. Exam Data for Last 24 hours Vital signs and Labs for Last 24 Hours: Temp Pulse Resp BP Pulse Ox O2 Del Method 98.2 F 97 H 16 119/65 93 L Room Air 06/05/24 08:00 06/05/24 10:00 06/05/24 10:00 06/05/24 10:00 06/05/24 10:00 06/05/24 11:00 Laboratory Results - last 24 hr 06/04/24 16:10: WBC 8.4, RBC 5.16, Hgb 14.7, Hct 44.0, MCV 85.3, MCH 28.5, MCHC 33.4, RDW 13.2, Plt Count 267, MPV 9.9, Neut % (Auto) 68.9, Lymph % (Auto) 17.7, [place] % (Auto) 11.2 H, Eos % (Auto) 1.8, Baso % (Auto) 0.2, Neut # (Auto) 5.8, Lymph # (Auto) 1.5, [place] # (Auto) 0.9, Eos # (Auto) 0.2, Baso # (Auto) 0.0, Sodium 139, Potassium 3.8, Chloride 105, Carbon Dioxide 26, Anion Gap 11.8, BUN 14, Creatinine 1.10, Estimated Creat Clear 112, Estimated GFR 65, Est GFR ( Amer) 79, Glucose 133 H, Calcium 9.3, Total Bilirubin 0.5, AST 48, ALT 48, Alkaline Phosphatase 71, Troponin I 1.70 H, Total Protein 7.2, Albumin 4.4, Globulin 2.8, Albumin/Globulin Ratio 1.6, HCV Ab ARTHUR w/Rflx PCR Qn Negative, HIV Ag/Ab Combo Qual Negative 06/04/24 16:45: Urine Color Yellow, Urine Appearance Clear, Urine pH 6.5, Ur Specific [place] 1.020, Urine Protein Negative, Urine Glucose (UA) Negative, Urine Ketones Negative, Urine Blood Negative, Urine Nitrate Negative, Urine Bilirubin Negative, Urine Urobilinogen 0.2, Ur Leukocyte Esterase Trace, Urine RBC None, Urine WBC 3-5, Ur Squamous Epith Cells None, Urine Bacteria None 06/04/24 18:46: Sodium 137, Potassium 3.7, Chloride 104, Carbon Dioxide 25, Anion Gap 11.7, BUN 13, Creatinine 1.10, Estimated Creat Clear 112, Estimated GFR 65, Est GFR ( Amer) 79, Glucose 114 H, Calcium 8.9, Troponin I 2.20 H 06/04/24 20:15: Activated Clotting Time > 400 H* 06/04/24 20:31: Activated Clotting Time 304 H* D 06/05/24 06:22: WBC 9.1, RBC 5.37, Hgb 15.4, Hct 45.4, MCV 84.5, MCH 28.7, MCHC 33.9, RDW 13.2, Plt Count 273, MPV 10.1, Neut % (Auto) 73.0, Lymph % (Auto) 13.8, [place] % (Auto) 11.8 H, Eos % (Auto) 0.8, Baso % (Auto) 0.3, Neut # (Auto) 6.7, Lymph # (Auto) 1.3, [place] # (Auto) 1.1 H, Eos # (Auto) 0.1, Baso # (Auto) 0.0, Sodium 136, Potassium 3.7, Chloride 101, Carbon Dioxide 25, Anion Gap 13.7, BUN 11, Creatinine 1.00, Estimated Creat Clear 123, Estimated GFR 73, Est GFR ( Amer) 88, Glucose 157 H D, Calcium 9.0 I & O for Last 24 hours: Intake & Output 06/02/24 06/03/24 06/04/24 06/05/24 23:59 23:59 23:59 23:59 Intake Total 1.775 / 1.775 400 / 400 Output Total 1400 / 1600 1150 / 1150 Balance -1398.225 / -1598.225 -750 / -750 Weight 136.713 kg 136.305 kg Constitutional Constitutional: no acute distress, obese and cooperative *Routine HEENT Exam Head: Present normocephalic Eye: Present EOMI and PERRL ENT: Present mucous membranes moist *Routine Neck Exam Neck: Present supple; Absent lymphadenopathy *Routine Respiratory Exam Respiratory: Present CTA bilaterally; Absent rhonchi, wheezes or crackles *Routine Cardiovascular Exam Cardiovascular: Present RRR *Routine Abdominal Exam Abdominal: Present soft and normoactive bowel sounds; Absent tenderness *Routine Rectal Exam Patient deferred: visual exam *Routine Exam Patient deferred: penile exam *Routine Extremities Exam Extremities: Absent cyanosis, clubbing or edema *Routine Skin Exam Skin: Present warm; Absent rash *Routine Neurological Exam Neurological: Present alert, oriented X3 and moving all extremities; Absent altered mental status Results Data Completed and Pending Labs on day of discharge: Labs from last 24 hours 06/05/24 06/04/24 06/04/24 06:22 20:31 20:15 WBC 9.1 RBC 5.37 Hgb 15.4 Hct 45.4 MCV 84.5 MCH 28.7 MCHC 33.9 RDW 13.2 Plt Count 273 MPV 10.1 Neut % (Auto) 73.0 Lymph % (Auto) 13.8 Beaver % (Auto) 11.8 H Eos % (Auto) 0.8 Baso % (Auto) 0.3 Neut # (Auto) 6.7 Lymph # (Auto) 1.3 [place] # (Auto) 1.1 H Eos # (Auto) 0.1 Baso # (Auto) 0.0 Activated Clotting Time 304 H* D > 400 H* Sodium 136 Potassium 3.7 Chloride 101 Carbon Dioxide 25 Anion Gap 13.7 BUN 11 Creatinine 1.00 Estimated Creat Clear 123 Estimated GFR 73 Est GFR ( Amer) 88 Glucose 157 H D Calcium 9.0 Total Bilirubin AST ALT Alkaline Phosphatase Troponin I Total Protein Albumin Globulin Albumin/Globulin Ratio Urine Color Urine Appearance Urine pH Ur Specific [place] Urine Protein Urine Glucose (UA) Urine Ketones Urine Blood Urine Nitrate Urine Bilirubin Urine Urobilinogen Ur Leukocyte Esterase Urine RBC Urine WBC Ur Squamous Epith Cells Urine Bacteria HCV Ab ARTHUR w/Rflx PCR Qn HIV Ag/Ab Combo Qual 06/04/24 06/04/24 06/04/24 18:46 16:45 16:10 WBC 8.4 RBC 5.16 Hgb 14.7 Hct 44.0 MCV 85.3 MCH 28.5 MCHC 33.4 RDW 13.2 Plt Count 267 MPV 9.9 Neut % (Auto) 68.9 Lymph % (Auto) 17.7 [place] % (Auto) 11.2 H Eos % (Auto) 1.8 Baso % (Auto) 0.2 Neut # (Auto) 5.8 Lymph # (Auto) 1.5 [place] # (Auto) 0.9 Eos # (Auto) 0.2 Baso # (Auto) 0.0 Activated Clotting Time Sodium 137 139 Potassium 3.7 3.8 Chloride 104 105 Carbon Dioxide 25 26 Anion Gap 11.7 11.8 BUN 13 14 Creatinine 1.10 1.10 Estimated Creat Clear 112 112 Estimated GFR 65 65 Est GFR ( Amer) 79 79 Glucose 114 H 133 H Calcium 8.9 9.3 Total Bilirubin 0.5 AST 48 ALT 48 Alkaline Phosphatase 71 Troponin I 2.20 H 1.70 H Total Protein 7.2 Albumin 4.4 Globulin 2.8 Albumin/Globulin Ratio 1.6 Urine Color Yellow Urine Appearance Clear Urine pH 6.5 Ur Specific [place] 1.020 Urine Protein Negative Urine Glucose (UA) Negative Urine Ketones Negative Urine Blood Negative Urine Nitrate Negative Urine Bilirubin Negative Urine Urobilinogen 0.2 Ur Leukocyte Esterase Trace Urine RBC None Urine WBC 3-5 Ur Squamous Epith Cells None Urine Bacteria None HCV Ab ARTHUR w/Rflx PCR Qn Negative HIV Ag/Ab Combo Qual Negative DS: Diagnosis Discharge Diagnosis (1) ACS (acute coronary syndrome): Status: Acute Code(s): I24.9 - Acute ischemic heart disease, unspecified (2) Chest pain: Status: Acute Code(s): R07.9 - Chest pain, unspecified (3) Atrial fibrillation: Status: Acute Code(s): I48.91 - Unspecified atrial fibrillation (4) Type 2 diabetes mellitus: Status: Acute Code(s): E11.9 - Type 2 diabetes mellitus without complications (5) Hypertension: Status: Acute Code(s): I10 - Essential (primary) hypertension Meds Home Medications and Allergies Home Medications ?Medication ?Instructions ?Recorded ?Confirmed ?Type amiodarone 200 mg tablet 200 mg PO DAILY 06/04/24 06/04/24 History clopidogrel 75 mg tablet (Plavix) 75 mg PO DAILY 06/04/24 06/04/24 History ezetimibe 10 mg tablet 10 mg PO DAILY 06/04/24 06/04/24 History losartan 50 mg tablet 50 mg PO BID 06/04/24 06/04/24 History rivaroxaban 10 mg tablet (Xarelto) 10 mg PO QPMWITHMEAL 06/04/24 06/05/24 History sitagliptin phosphate 50 mg tablet 50 mg PO DAILY 06/04/24 06/04/24 History (Januvia) aspirin 81 mg tablet,delayed 81 mg PO DAILY 30 days #30 tabs 06/05/24 Rx release carvedilol 12.5 mg tablet 12.5 mg PO BID 30 days #60 tabs 06/05/24 Rx cholecalciferol (vitamin D3) 50 50 mcg PO DAILY 06/05/24 06/05/24 History mcg (2,000 unit) tablet nitroglycerin 0.4 mg sublingual 0.4 mg sublingual Q5MINP PRN Chest 06/05/24 06/05/24 History tablet Pain New Prescriptions to Start Prescriptions: aspirin Dc Carter carvedilol Dc Carter Allergies Allergy/AdvReac Type Severity Reaction Status Date / Time [id number] Reductase Allergy Muscle Pain Verified 06/04/24 16:18 Inhibitor sulfamethoxazole (From Allergy Swelling Verified 06/04/24 16:18 Bactrim) of Lip/Tongue/Throat trimethoprim (From Bactrim) Allergy Swelling Verified 06/04/24 16:18 of Lip/Tongue/Throat Discharge Plan Disposition Patient Disposition: Home, Self-Care Condition: Good Follow up Plan Follow up with: Evelyn Ramirez PA [Primary Care Provider] - See instructions Andrea Raman MD [Staff Physician] - Enter time for follow up (Fri06/09/24 at 1pm) Prescriptions/Medication Reconciliation: New carvedilol 12.5 mg Tablet 12.5 mg PO BID 30 Days Qty: 60 0RF aspirin 81 mg Tablet,Delayed Release (Dr/Ec) 81 mg PO DAILY 30 Days Qty: 30 0RF Continued losartan 50 mg Tablet 50 mg PO BID amiodarone 200 mg Tablet 200 mg PO DAILY clopidogrel [Plavix] 75 mg Tablet 75 mg PO DAILY ezetimibe 10 mg Tablet 10 mg PO DAILY Januvia 50 mg Tablet 50 mg PO DAILY Xarelto 10 mg Tablet 10 mg PO QPMWITHMEAL Rx Instructions: for 35 days nitroglycerin 0.4 mg tablet, sublingual 0.4 mg sublingual Q5MINP PRN (Reason: Chest Pain) Patient Comments: DISSOLVE 1 TABLET UNDER TONGUE EVERY 5 MINUTES FOR 3 DOSES NEEDED FOR CHEST PAIN-NO RELIEF CALL 911 cholecalciferol (vitamin D3) 50 mcg (2,000 unit) tablet 50 mcg PO DAILY Patient Comments: TAKE 1 TABLET BY MOUTH EVERY DAY Discontinued amlodipine 5 mg Tablet 5 mg PO DAILY carvedilol 3.125 mg Tablet 3.125 mg PO BID Rx Instructions: must administer with a meal/food Problem Reconciliation Problems Reviewed?: Yes Patient Discharge Instructions ACTIVITY: Continue current activity DIET: continue same diet Print Language: Kyrgyz Providers Primary Care Provider: Evelyn Ramirez Admit Provider: Dc Carter Attending Provider: Dc Carter
[2024-06-05 11:52] LABS: POC Glucose,Bedside 123 (70-110)
[2024-06-05 13:06] LABS: HIV Combo NEGATIVE (Negative)
[2024-06-05 13:14] LABS: Hepatitis C Ab Qual. W/ RFX NEGATIVE (Negative)
--- NOTE | 2024-06-05 13:40 | PC.NURSE ---
Off unit with pt to retrieve pts meds from pharmacy. Pt taken in wheel chair. Back on unit at 1350. Pt sitting in wheel chair with call light in reach.
--- NOTE | 2024-06-08 10:12 | SW/DCPLANNER ---
Phoned patient x2. Patients voicemail has not been sat up. Royer Bonds
== END 2024-06-05 14:33 | disposition home or self-care (01) | DRG 321 ==
LOC: ER 16:57 → CATHLAB 19:26 → 2ND 19:42
PROVIDERS: Internal Medicine; Admitting Provider Internal Medicine Adolescent Medicine; Emergency Provider Emergency Medicine; PCP Physician Assistant; Visit Provider Internal Medicine Adolescent Medicine
PROC: 027237Z Dilation of Coronary Artery, Three Arteries with Four or More Drug-eluting Intraluminal Devices, Percutaneous Approach (ICD-10-PCS; principal; 2024-06-04 19:25)
DX: I21.4 Non-ST elevation (NSTEMI) myocardial infarction (principal); I24.9 Acute ischemic heart disease, unspecified; R07.9 Chest pain, unspecified; E11.9 Type 2 diabetes mellitus without complications; I10 Essential (primary) hypertension; I48.0 Paroxysmal atrial fibrillation; I77.1 Stricture of artery; Z79.01 Long term (current) use of anticoagulants; Z95.5 Presence of coronary angioplasty implant and graft; Z88.1 Allergy status to other antibiotic agents; Z88.2 Allergy status to sulfonamides; Z88.8 Allergy status to other drugs, medicaments and biological substances; Z79.84 Long term (current) use of oral hypoglycemic drugs
CPT/HCPCS: 36415; 71045; 71275; 80048; 80053; 81001; 82962; 84484; 85025; 85347; 86803; 87389; 92928; 92929; 93005; 99152; 99153; 99291; C1725; C1769; C1874; C9600; C9601; G0378; J1200; J1644; J1650; J2250; J3010; Q9967

== ENCOUNTER 2024-07-23 17:18 | Observation (INO) | payer MEDICARE, SELFPAY ==
[2024-07-23] VITALS (11 sets, daily range): BP systolic 153–176; BP diastolic 93–111; PULSE 84–116; RESP 14–23; TEMP 36.6–37; O2SAT 94–96; BMI 37.5
--- NOTE | 2024-07-23 17:19 | ECG_ITS ---
APPROVED REPORT Exam: Resting ECG HR:99 bpm ECG Measurements Heart Rate 99 AXES QRSd 102 QRS 56 QT 357 T 70 QTc 413 Conclusion Atrial flutter No acute ischemic changes Electronically signed by : EVELYN ROSAS, 07/23/2024 18:24:35
--- NOTE | 2024-07-23 17:23 | ED_ITS ---
Discharge Plan Disposition Patient Disposition: Admitted Chief Complaint: Chest Pain Prescriptions Prescriptions: No Action losartan 50 mg Tablet 50 mg PO BID amiodarone 200 mg Tablet 200 mg PO DAILY clopidogrel [Plavix] 75 mg Tablet 75 mg PO DAILY ezetimibe 10 mg Tablet 10 mg PO DAILY Januvia 50 mg Tablet 50 mg PO DAILY Xarelto 10 mg Tablet 10 mg PO QPMWITHMEAL Rx Instructions: for 35 days nitroglycerin 0.4 mg tablet, sublingual 0.4 mg sublingual Q5MINP PRN (Reason: Chest Pain) Patient Comments: DISSOLVE 1 TABLET UNDER TONGUE EVERY 5 MINUTES FOR 3 DOSES NEEDED FOR CHEST PAIN-NO RELIEF CALL 911 cholecalciferol (vitamin D3) 50 mcg (2,000 unit) tablet 50 mcg PO DAILY Patient Comments: TAKE 1 TABLET BY MOUTH EVERY DAY carvedilol 12.5 mg Tablet 12.5 mg PO BID 30 Days Qty: 60 0RF aspirin 81 mg Tablet,Delayed Release (Dr/Ec) 81 mg PO DAILY 30 Days Qty: 30 0RF Referrals Follow up/Referrals: Evelyn Ramirez PA [Primary Care Provider] - See instructions Clinical Impressions Clinical Impression: Angina pectoris, New onset of congestive heart failure Print Language Print Language: Slovenian Discharge ED Provider: Santiago Park HPI General Chief Complaint: Chest Pain Stated Complaint: Chest Pain Time Seen by Provider: 07/23/24 17:22 History of Present Illness HPI narrative: Please note that above description of symptoms, in this electronic medical record under categorization of recalled from ER triage doctor by RN are reflective of an initial nursing assessment, however, is not reflective of my full history and physical exam that was personally taken and clarified. Consequentially, this preceding description of symptoms, which may include the patient's categorized chief complaint in the EMR, do not reflect my personal clinical impression, and the ultimate description of history of present illness and patient stated complaints should be deferred to this section of the note. Unless stated otherwise or congruent with this section of the note, additional signs, symptoms, or incongruence should be interpreted as inaccurate with my clinical impression. Related Data Home Medications ?Medication ?Instructions ?Recorded ?Confirmed amiodarone 200 mg tablet 200 mg PO DAILY 06/04/24 06/04/24 clopidogrel 75 mg tablet (Plavix) 75 mg PO DAILY 06/04/24 06/04/24 ezetimibe 10 mg tablet 10 mg PO DAILY 06/04/24 06/04/24 losartan 50 mg tablet 50 mg PO BID 06/04/24 06/04/24 rivaroxaban 10 mg tablet (Xarelto) 10 mg PO QPMWITHMEAL 06/04/24 06/05/24 sitagliptin phosphate 50 mg tablet 50 mg PO DAILY 06/04/24 06/04/24 (Januvia) cholecalciferol (vitamin D3) 50 50 mcg PO DAILY 06/05/24 06/05/24 mcg (2,000 unit) tablet nitroglycerin 0.4 mg sublingual 0.4 mg sublingual Q5MINP PRN Chest 06/05/24 06/05/24 tablet Pain Previous Rx's ?Medication ?Instructions ?Recorded aspirin 81 mg tablet,delayed 81 mg PO DAILY 30 days #30 tabs 06/05/24 release carvedilol 12.5 mg tablet 12.5 mg PO BID 30 days #60 tabs 06/05/24 Allergies Allergy/AdvReac Type Severity Reaction Status Date / Time Pcriowe-JHQ-HaZ Reductase Allergy Muscle Pain Verified 06/04/24 16:18 Inhibitor sulfamethoxazole (From Allergy Swelling Verified 06/04/24 16:18 Bactrim) of Lip/Tongue/Throat trimethoprim (From Bactrim) Allergy Swelling Verified 06/04/24 16:18 of Lip/Tongue/Throat [facility] Disclaimer: The information contained in this section may have been updated after the patient was seen, as this information can be updated by other users. Medical History (Updated 07/23/24 @ 19:23 by Santiago Park MD) Type 2 diabetes mellitus (06/04/24) Hypertension A-fib History of colon cancer Social History (Updated 06/04/24 @ 23:17 by Chicho Parra MD) Smoking Status: Never smoker alcohol intake: never current occupational status: other Travel in the last 8 weeks?: None Have you lived/traveled outside US in past 30 days?: No Contact w/someone who lives/traveled outside US past 30 days?: No Exposure to someone with infectious disease in past 14 days?: No Do you have a fever (greater than 100.4 F or 38 C)?: No Have you tested positive for COVID-19?: No Exposed to someone with COVID-19 in past 14 days?: No Do you have a sore throat?: No Do you have a cough?: No Do you have any weakness?: No Do you have any diarrhea?: No Are you experiencing any unusual bleeding?: No Do you have any muscle aches/pain?: No Do you have any abdominal pain?: No Are you experiencing loss of taste or smell?: No Other Medical History Have you received the Flu Vaccine for this season: No Have you received the Pneumonia Vaccine: No ROS Obtained: Yes All systems reviewed & no additional complaints except as documented Physical Exam General General appearance: alert Neck Neck exam: Present trachea midline Chest Chest inspection: Present normal inspection and symmetric chest wall rise Respiratory Respiratory exam: Present normal lung sounds bilaterally; Absent respiratory distress, wheezes, stridor, accessory muscle use or prolonged expiratory phase Cardiovascular Cardiovascular exam: Present regular rate, normal rhythm and other (Pulses equal and symmetric in upper and lower extremities) Extremities Exam Extremities exam: Absent edema Neurological Exam Neurological exam: Present alert, oriented X3 and CN II-XII intact Skin Skin exam: Present warm and dry; Absent cyanosis, diaphoresis or pallor HEART Score HEART Score HEART Score assessment performed?: Yes History (anamnesis): Moderately suspicious ECG: Non-specific disturbance Age: >65 years Risk factors: 3 or more risk factors Troponin: </= normal limit HEART Score: 6 Critical Care Critical Care Time Critical Care Time: Yes (cardiac) Attestation: On 07/23/24, the high probability of a clinically significant, sudden or life threatening deterioration of the following system(s) required my full and direct attention, intervention and personal management. The time I documented below is in addition to time spent performing reported procedures but includes the following listed in this critical care notation. Total Time Total Critical Care Time: 35 Medical Decision Making Medical Records Medical records reviewed: Yes I reviewed the patient's medical records. Yung Inquiry Pt receiving controlled substance: No Yung was queried for this patient: No Vital Signs Vital Signs: 07/23/24 17:31 07/23/24 17:34 07/23/24 18:01 Temperature 98 F Temperature Source Oral Pulse Rate 98 H 86 Pulse Rate [Right Radial] 100 H Respiratory Rate 18 18 14 Blood Pressure 153/98 H 157/97 H Blood Pressure [Right Arm] 165/111 H Blood Pressure Mean [Right Arm] 129 Blood Pressure Source [Right Arm] Automatic Cuff Blood Pressure Position [Right Arm] Supine 02 Sat by Pulse Oximetry 96 95 95 Oxygen Delivery Method Room Air 07/23/24 18:31 Temperature Temperature Source Pulse Rate 89 Pulse Rate [Right Radial] Respiratory Rate 23 Blood Pressure 154/93 H Blood Pressure [Right Arm] Blood Pressure Mean [Right Arm] Blood Pressure Source [Right Arm] Blood Pressure Position [Right Arm] 02 Sat by Pulse Oximetry 94 L Oxygen Delivery Method Room Air Lab Data Labs: Lab Results 07/23/24 17:25: WBC 7.8, RBC 4.99, Hgb 14.3, Hct 42.8, MCV 85.8, MCH 28.7, MCHC 33.4, RDW 13.9, Plt Count 268, MPV 10.0, Neut % (Auto) 72.9, Lymph % (Auto) 13.2, [facility] % (Auto) 12.1 H, Eos % (Auto) 1.2, Baso % (Auto) 0.3, Neut # (Auto) 5.7, Lymph # (Auto) 1.0, [facility] # (Auto) 0.9, Eos # (Auto) 0.1, Baso # (Auto) 0.0, PT 11.6, INR 1.05, APTT 26.5, D-Dimer 0.65 H, Sodium 136, Potassium 4.3, Chloride 104, Carbon Dioxide 24, Anion Gap 12.3, BUN 21 H, Creatinine 1.40 H, Estimated Creat Clear 88, Estimated GFR 49 L, Est GFR ( Amer) 60, Glucose 140 H, Calcium 9.0, Magnesium 1.8, Total Bilirubin 0.7, AST 30, ALT 44, Alkaline Phosphatase 61, Troponin I < 0.01, NT-Pro-B Natriuret Pep 2350 H, Total Protein 7.3, Albumin 4.6, Globulin 2.7, Albumin/Globulin Ratio 1.7, Lipase 98 07/23/24 17:25 07/23/24 17:25 Response Orders (Tests/Meds): ED MEDICATIONS Discontinued Medications Generic Name Dose Route Start Last Admin Trade Name Freq PRN Reason Stop Dose Admin Aspirin 324 mg 07/23/24 17:22 07/23/24 17:32 Aspirin 81mg Chewable Tablet PO 07/23/24 17:23 324 mg ONCE ONE Administration Furosemide 40 mg 07/23/24 19:07 07/23/24 19:10 Furosemide 40mg/4ml Vial IV 07/23/24 19:08 40 mg ONCE ONE Administration ORDERS Category Date Time Status CXR --portable [XR chest portable] Stat Exams 07/23/24 17:46 Completed Complete Blood Count Auto Diff Stat Lab 07/23/24 17:25 Completed Comprehensive Metabolic Panel Stat Lab 07/23/24 17:25 Completed D-Dimer Stat Lab 07/23/24 17:25 Completed Lipase Stat Lab 07/23/24 17: Completed Magnesium Stat Lab 07/23/24 17:25 Completed NT Pro Brain Natriuretic Pep. Stat Lab 07/23/24 17:25 Completed PT INR [Prothrombin Time INR] Stat Lab 07/23/24 17:25 Completed PTT [Activated Partial Thrombo Time] Stat Lab 07/23/24 17: Completed Troponin I Q3H Lab 07/23/24 20:30 Ordered Troponin I Q3H Lab 07/23/24 23:30 Ordered Troponin I Stat Lab 07/23/24 17:25 Completed MDM Narrative Medical Decision Narrative: 74-year-old male presenting with chest and back pain. He has a history of hypertension, hyperlipidemia, type 2 diabetes, CAD status post stenting, atrial fibrillation on Xarelto. He states that this feels just like his previous heart attacks. He said heart attacks in the past, currently has [address] States that his anginal pain usually starts as chest pain that radiates through to between his shoulders as a burning. No shortness of breath, nausea, vomiting, diaphoresis, syncopal episodes, neurologic deficits, or any other concerns. Is mild in intensity, not exertional, not positional. He states that he was just sitting down eating when it started today and nothing in particular makes it better other than nitroglycerin, which she took 3F prior to coming to the emergency department. History was obtained via conversation with patient. On arrival, patient hemodynamically stable, alert, oriented x4, appropriate, GCS 15, moving all extremities spontaneously, pupils equal and reactive to light. Full physical exam performed and significant for very clinically well-appearing male who is in no acute distress. Lungs are clear, cardiac exam without murmurs gallops or rubs. He does have lower extremity edema on the left side minimally, he states this is chronic and normal since his knee replacement on left side. Pulses equal and symmetric in upper and lower extremities. Differential includes ACS, [place], CHF, pneumothorax, dissection, pancreatitis, gastritis, enteritis, pericarditis, myocarditis, musculoskeletal chest wall pain, among others. Patient was given 4 baby aspirin for symptomatic management and correction of underlying abnormalities. Patient placed on continuous cardiac monitoring and continuous pulse ox with initial blood pressure 165/111, heart rate 100, saturation 95% on room air. Independent interpretation of EKG shows atrial flutter rate controlled 99 bpm with QRS 102, QTc 413. No obvious acute ischemic change. Workup independently interpreted and significant for nonactionable CBC, chemistry with stable CKD. Initial troponin negative. On independent interpretation of imaging, patient has pulmonary congestion, pulmonary edema, effusions. See radiology read for full review of final results. Heart score 6. BNP elevated 2300, this is new. On reevaluation, patient states that aspirin helped him a lot, having minimal pain at this time. 40 mg IV Lasix was administered as he is Lasix na?ve. Hospital medicine was consulted and case was discussed at length, patient to be admitted for new onset CHF and diuresis in the setting of CKD. Because patient high risk for clinical decompensation, deemed appropriate for inpatient admission. Results were relayed to patient who voiced understanding and patient was agreeable to inpatient admission and management. Patient was admitted to the hospital for further definitive management. Sales Team Leader disclaimer Much of this encounter note is an electronic medical authorization specialist spoken language to printed text. Electronic medical authorization specialist of the spoken language may permit errors. Although I have reviewed the note, some errors may still exist.
[2024-07-23] MEDS: ASPIRIN 81MG CHEWABLE TABLET 324 MG PO (17:32)
[2024-07-23 17:46] LABS: Basophils % 0.3 % (0.1-2.0); Eosinophils # 0.1 Kmm3 (0.0-0.4); Eosinophils % 1.2 % (0.1-12.0); Hematocrit 42.8 % (42.0-52.0); Hemoglobin 14.3 g/dL (14.1-18.0); Immature Granulocytes # 0.02 10^3uL; Immature Granulocytes % 0.3 %; Lymphocytes % 13.2 % (10-50); Mean Corpuscular HGB Conc 33.4 g/dL (31.8-35.4); Mean Corpuscular Hemoglobin 28.7 pg (27.0-31.2); Mean Corpuscular Volume 85.8 fl (80-94); Monocytes # 0.9 K/mm3 (0.1-1.0); Monocytes % 12.1 % (1.7-9.3); Neutrophils # 5.7 K/mm3 (1.8-7.8); Neutrophils % 72.9 % (37.0-80.0); Nucleated Red Blood Cells # 0 10^3/uL; Nucleated Red Blood Cells % 0 %; Platelet Count 268 K/mm3 (142-424); Red Blood Count 4.99 M/mm3 (4.60-6.20); Red Cell Distribution Width 13.9 % (11.5-17.5); Red Cell Distribution Width-SD 43.3 fL; White Blood Count 7.8 K/mm3 (4.8-10.8)
--- NOTE | 2024-07-23 17:46 | XR_ITS ---
PROCEDURE INFORMATION: Exam: XR Chest Exam date and time: 07/23/2024 5:49 PM Age: 74 years old Clinical indication: Pain; Other: Cp; Additional info: Cp to back TECHNIQUE: Imaging protocol: Radiologic exam of the chest. Views: 1 view. COMPARISON: CT ANGIO CHEST 06/04/2024 5:45 PM FINDINGS: Lungs: Bibasilar opacities partially silhouette the diaphragm are favored to represent combination of atelectasis/pleural effusion/consolidation. Pleural spaces: See Lungs finding. Heart/Mediastinum: Unremarkable. No cardiomegaly. Bones/joints: Unremarkable. IMPRESSION: Bibasilar opacities partially silhouette the diaphragm are favored to represent combination of atelectasis/pleural effusion/consolidation.
[2024-07-23 17:51] LABS: Alanine Aminotransferase 44 U/L (12-78); Albumin Level 4.6 g/dl (3.5-5.0); Albumin/Globulin Ratio 1.7 (1.1-1.8); Alkaline Phosphatase 61 U/L (38-126); Anion Gap 12.3 mEq/L (5-15); Aspartate Amino Transferase 30 U/L (17-59); Bilirubin,Total 0.7 mg/dl (0.2-1.3); Blood Urea Nitrogen 21 mg/dl (9-20); Carbon Dioxide 24 mmol/L (22.0-30.0); Chloride 104 mmol/L (98-107); Creatinine Clearance Estimated 88 mL/min (50-200); Estimated Glomerular Filt Rate 49 ml/min (>60); GFR (African American) 60 ML/MIN (>60); Globulin 2.7 g/dL (1.3-3.2); Glucose 140 mg/dl (74-100); Lipase 98 U/L (23-300); Magnesium 1.8 mg/dl (1.6-2.3); Potassium 4.3 mmoL/L (3.5-5.1); Sodium 136 mmol/L (136-145); Total Protein,Serum 7.3 g/dl (6.3-8.2)
[2024-07-23 17:53] LABS: Activated Partial Thrombo Time 26.5 seconds (22.8-30.6)
[2024-07-23 17:54] LABS: INR 1.05 (0.9-1.1); Prothrombin Time 11.6 seconds (10.1-12.5)
[2024-07-23 18:03] LABS: Troponin I < 0.01 ng/ml (0.00-0.034)
[2024-07-23 18:08] LABS: D-Dimer 0.65 ug/mL (0.0-0.5)
[2024-07-23 18:39] LABS: NT Pro Brain Natriuretic Pep. 2350 pg/mL (0-450)
[2024-07-23] MEDS: FUROSEMIDE 40MG/4ML VIAL 40 MG IV (19:10)
--- NOTE | 2024-07-23 20:04 | EXP.HP ---
History of Present Illness *Admission Date: 07/23/24 *Reason for visit:: Chest pain *History of present illness: This is a 74-year-old male that presents to [facility] emergency department with concerns of chest pain that began this morning with no identified inciting event. He reports the pain will come and go. It usually starts in his chest and radiates between his shoulders and has been persistent so he presented to the ED. He reports no associated diaphoresis, nausea, vomiting but does endorse palpitations. He denies any associated confusion, syncope or falls. He took some nitroglycerin with no improvement. He has identified some shortness of air with activity worse over the last few days. In the ED his ECG identified atrial flutter with no acute ST-T changes. His troponin is negative. His chest x-ray is concerning for congestive heart failure and his proBNP is elevated at 2350. His history is significant for cardiac catheterization June 2024 with 6 stents deployed. He reports compliance with his anticoagulation therapy. [facility] Disclaimer: The information contained in this section may have been updated after the patient was seen, as this information can be updated by other users. Medical History (Updated 07/23/24 @ 20:11 by Jd Hunt MD) Paroxysmal atrial fibrillation Coronary artery disease Hypertension History of colon cancer Surgical History (Updated 07/23/24 @ 20:11 by Jd Hunt MD) S/P cardiac catheterization Social History (Updated 06/04/24 @ 23:17 by Chicho Parra MD) Smoking Status: Never smoker alcohol intake: never current occupational status: other Travel in the last 8 weeks?: None Have you lived/traveled outside US in past 30 days?: No Contact w/someone who lives/traveled outside US past 30 days?: No Exposure to someone with infectious disease in past 14 days?: No Do you have a fever (greater than 100.4 F or 38 C)?: No Have you tested positive for COVID-19?: No Exposed to someone with COVID-19 in past 14 days?: No Do you have a sore throat?: No Do you have a cough?: No Do you have any weakness?: No Do you have any diarrhea?: No Are you experiencing any unusual bleeding?: No Do you have any muscle aches/pain?: No Do you have any abdominal pain?: No Are you experiencing loss of taste or smell?: No Other Medical History Have you received the Flu Vaccine for this season: No Have you received the Pneumonia Vaccine: No Review of Systems Review of Systems Review of systems:: pertinent systems reviewed and negative unless documented below Meds Home Medications and Allergies Home Medications ?Medication ?Instructions ?Recorded ?Confirmed ?Type amiodarone 200 mg tablet 200 mg PO DAILY 06/04/24 06/04/24 History clopidogrel 75 mg tablet (Plavix) 75 mg PO DAILY 06/04/24 06/04/24 History ezetimibe 10 mg tablet 10 mg PO DAILY 06/04/24 06/04/24 History losartan 50 mg tablet 50 mg PO BID 06/04/24 06/04/24 History rivaroxaban 10 mg tablet (Xarelto) 10 mg PO QPMWITHMEAL 06/04/24 06/05/24 History sitagliptin phosphate 50 mg tablet 50 mg PO DAILY 06/04/24 06/04/24 History (Januvia) aspirin 81 mg tablet,delayed 81 mg PO DAILY 30 days #30 tabs 06/05/24 Rx release carvedilol 12.5 mg tablet 12.5 mg PO BID 30 days #60 tabs 06/05/24 Rx cholecalciferol (vitamin D3) 50 50 mcg PO DAILY 06/05/24 06/05/24 History mcg (2,000 unit) tablet nitroglycerin 0.4 mg sublingual 0.4 mg sublingual Q5MINP PRN Chest 06/05/24 06/05/24 History tablet Pain New Prescriptions to Start Prescriptions: Allergies Allergy/AdvReac Type Severity Reaction Status Date / Time [id number]-[id number] Reductase Allergy Muscle Pain Verified 06/04/24 16:18 Inhibitor sulfamethoxazole (From Allergy Swelling Verified 06/04/24 16:18 Bactrim) of Lip/Tongue/Throat trimethoprim (From Bactrim) Allergy Swelling Verified 06/04/24 16:18 of Lip/Tongue/Throat Exam Data for Last 24 hours Vital signs and Labs for Last 24 Hours: Temp Pulse Resp BP Pulse Ox O2 Del Method 98 F 84 15 162/95 H 94 L Room Air 07/23/24 17:34 07/23/24 19:30 07/23/24 19:30 07/23/24 19:30 07/23/24 19:30 07/23/24 18:31 Laboratory Results - last 24 hr 07/23/24 17:25: WBC 7.8, RBC 4.99, Hgb 14.3, Hct 42.8, MCV 85.8, MCH 28.7, MCHC 33.4, RDW 13.9, Plt Count 268, MPV 10.0, Neut % (Auto) 72.9, Lymph % (Auto) 13.2, [place] % (Auto) 12.1 H, Eos % (Auto) 1.2, Baso % (Auto) 0.3, Neut # (Auto) 5.7, Lymph # (Auto) 1.0, [place] # (Auto) 0.9, Eos # (Auto) 0.1, Baso # (Auto) 0.0, PT 11.6, INR 1.05, APTT 26.5, D-Dimer 0.65 H, Sodium 136, Potassium 4.3, Chloride 104, Carbon Dioxide 24, Anion Gap 12.3, BUN 21 H, Creatinine 1.40 H, Estimated Creat Clear 88, Estimated GFR 49 L, Est GFR ( Amer) 60, Glucose 140 H, Calcium 9.0, Magnesium 1.8, Total Bilirubin 0.7, AST 30, ALT 44, Alkaline Phosphatase 61, Troponin I < 0.01, NT-Pro-B Natriuret Pep 2350 H, Total Protein 7.3, Albumin 4.6, Globulin 2.7, Albumin/Globulin Ratio 1.7, Lipase 98 I & O for Last 24 hours: Intake & Output 07/20/24 07/21/24 07/22/24 07/23/24 23:59 23:59 23:59 23:59 Weight 136.078 kg Constitutional Constitutional: no acute distress, morbidly obese and cooperative *Routine HEENT Exam Head: Present normocephalic Eye: Present EOMI ENT: Present mucous membranes moist *Routine Neck Exam Neck: Present supple; Absent JVD *Routine Respiratory Exam Respiratory: Present rales, rhonchi and normal respiratory effort *Routine Cardiovascular Exam Cardiovascular: Present irregular rhythm; Absent murmur *Routine Abdominal Exam Abdominal: Present soft and normoactive bowel sounds *Routine Rectal Exam Rectal:: deferred *Routine Genitalia Exam Genitalia:: deferred *Routine Extremities Exam Extremities: Present edema *Routine Skin Exam Skin: Absent rash *Routine Neurological Exam Neurological: Present alert, oriented X3, moving all extremities and normal speech Routine Psychiatric Exam Psychiatric: Present normal affect, normal thought process, cooperative, good insight and good judgment Assessment and Plan *Assessment and plan (1) New onset of congestive heart failure: Status: Acute Category: Medical Code(s): I50.9 - Heart failure, unspecified (2) Coronary artery disease: Status: Acute Category: Medical Code(s): I25.10 - Atherosclerotic heart disease of [place] coronary artery without angina pectoris (3) Unstable angina: Status: Acute Category: Medical Code(s): I20.0 - Unstable angina (4) Paroxysmal atrial fibrillation: Status: Acute Category: Medical Code(s): I48.0 - Paroxysmal atrial fibrillation (5) Acute kidney injury: Status: Acute Category: Medical Code(s): N17.9 - Acute kidney failure, unspecified Plan This is a 74-year-old male with routine cardiology evaluations and cardiac catheterization June 04, 2024 requiring 6 stents. He reports compliance with his anticoagulation therapy. In the ED his chest imaging and proBNP are elevated consistent with acute heart failure. Problems addressed as follows: Acute HFrEF (stage C/NYHA III) Accurate I's and O's Routine weights Sodium and fluid restriction Chest x-ray with CHF Admit proBNP 2350 Trending electrolytes, magnesium and creatinine Echo pending IV loop diuretic therapy Drug therapy requiring intensive monitoring for toxicity Routine electrolytes and renal function evaluations Beta-kristina therapy SGLT2 inhibitor therapy ARB therapy with consideration to transition to ARNI MAR therapy Unstable angina Coronary artery disease Cardiac catheterization with 6 stents (06/04/2024) Cardiology consult Aspirin therapy as inpatient with troponin trend Troponin trend pending ED ECG with atrial flutter rate 99, QTc 413 ms and no acute ST-T changes Statin allergy is reported (complicates care) Zetia therapy P2Y12 inhibitor therapy Beta-kristina therapy ARB therapy NTG therapy as needed Parenterally administered controlled substance as needed for comfort care Outpatient evaluation for PCSK9 therapy Paroxysmal atrial fibrillation Chronically anticoagulated with Xarelto Beta-kristina therapy Amiodarone therapy BMI 38 Nutrition education Appropriate calorie diet Complicates all aspects of care Outpatient follow-up for sleep study for high risk of CAMI The length of stay for this patient will be 2 midnights or greater due to above diagnoses. We will continue with triple anticoagulation therapy beyond his 30 days for his presenting angina. His troponin evaluations are pending. A cardiology consult has been placed. His reported statin allergy complicates care and he will have ongoing discussions with his PCP/cardiology team concerning alternative therapies including PCSK9 inhibitors and bempedoic acid.
--- NOTE | 2024-07-23 20:10 | PC.NURSE ---
Attempted to give report; francisco states she is unable to take report at this time and will call back.
--- NOTE | 2024-07-23 20:16 | PC.NURSE ---
Report called to BRI singh
--- NOTE | 2024-07-23 20:25 | PC.NURSE ---
Patient arrived to floor [facility] stretcher from ED at 20:24.
[2024-07-23] MEDS: PANTOPRAZOLE 40MG TABLET 40 MG PO (20:30)
[2024-07-23] MEDS: CARVEDILOL 12.5MG TABLET 12.5 MG PO (20:30)
[2024-07-23] MEDS: MAGNESIUM OXIDE 400MG TABLET 400 MG PO (20:30)
[2024-07-23] MEDS: BUMETANIDE 1MG/4ML VIAL 1 MG IV (20:31)
[2024-07-23 21:14] LABS: Troponin I < 0.01 ng/ml (0.00-0.034)
[2024-07-24] VITALS: BP 153/101; PULSE 80; PULSE 88; RESP 16; TEMP 36.9; O2SAT 96
[2024-07-24] LABS: Troponin I 0.02 ng/ml (0.00-0.034)
[2024-07-24 04:00] VITALS: BP 144/96; PULSE 83; PULSE 85; RESP 16; TEMP 36.8; O2SAT 94; BMI 29.7
--- NOTE | 2024-07-24 04:52 | PC.NURSE ---
New Admit. pt is a flutter on tele. pt denies any chest pain or discomfort. v/s, ox4. pt is tolerating diuretics. plan of care ongoing.
[2024-07-24 05:29] LABS: Anion Gap 11.6 mEq/L (5-15); Blood Urea Nitrogen 22 mg/dl (9-20); Carbon Dioxide 31 mmol/L (22.0-30.0); Chloride 100 mmol/L (98-107); Chol/HDL Ratio 4.9 (1-3.5); Cholesterol 166 mg/dl (140-200); Creatinine Clearance Estimated 70 mL/min (50-200); Estimated Glomerular Filt Rate 49 ml/min (>60); GFR (African American) 60 ML/MIN (>60); Glucose 138 mg/dl (74-100); HDL Cholesterol 34 mg/dl (40-60); Potassium 3.6 mmoL/L (3.5-5.1); Sodium 139 mmol/L (136-145); Triglycerides 87 mg/dl (30-150); VLDL Cholesterol 17 mg/dL (0-40)
[2024-07-24 05:39] LABS: Direct LDL Cholesterol 111.79 mg/dL (100-129)
[2024-07-24 06:03] LABS: Troponin I 0.02 ng/ml (0.00-0.034)
[2024-07-24 08:00] VITALS: BP 128/74; PULSE 88; RESP 18; TEMP 36.8; O2SAT 92
[2024-07-24 08:01] VITALS: PULSE 90
--- NOTE | 2024-07-24 08:38 | HMH.PHAINT1 ---
Pharmacy Intervention Comments: MEDICATION RECONCILIATION COMPLETED ON PATIENT USING EXTERNAL FILL HISTORY FROM PHARMACY. -KEYUR EDWARD, KIMBERLYD
[2024-07-24] MEDS: IRBESARTAN 75MG TABLET 75 MG PO (09:03)
[2024-07-24] MEDS: EZETIMIBE 10MG TABLET 10 MG PO (09:03)
[2024-07-24] MEDS: MAGNESIUM OXIDE 400MG TABLET 400 MG PO (09:03)
[2024-07-24] MEDS: EMPAGLIFLOZIN 10MG TABLET 10 MG PO (09:03)
[2024-07-24] MEDS: AMIODARONE 200MG TABLET 200 MG PO (09:04)
[2024-07-24] MEDS: SPIRONOLACTONE 25MG TABLET 25 MG PO (09:04)
[2024-07-24] MEDS: CARVEDILOL 12.5MG TABLET 12.5 MG PO (09:04)
[2024-07-24] MEDS: BUMETANIDE 1MG/4ML VIAL 1 MG IV (09:04)
[2024-07-24] MEDS: CLOPIDOGREL 75MG TAB 75 MG PO (09:04)
[2024-07-24] MEDS: ASPIRIN EC 81MG TABLET 81 MG PO (09:04)
[2024-07-24 10:06] LABS: Hemoglobin A1C 6.5 % (4.0-6.0)
[2024-07-24 12:00] VITALS: BP 125/85; PULSE 76; RESP 20; TEMP 36.6; O2SAT 94
[2024-07-24 12:17] VITALS: PULSE 100
[2024-07-24] MEDS: CEFTRIAXONE 1 GM 1 GM in 0.9 % SODIUM CHLORIDE 50 ML IV (12:25)
[2024-07-24] MEDS: DOXYCYCLINE HYCL 100 MG TABLET PO (12:26)
--- NOTE | 2024-07-24 15:57 | P.DS_ITS ---
General Admission date:: 07/23/24 HPI HPI HPI: This is a 74-year-old male that presents to [facility] emergency department with concerns of chest pain that began this morning with no identified inciting event. He reports the pain will come and go. It usually starts in his chest and radiates between his shoulders and has been persistent so he presented to the ED. He reports no associated diaphoresis, nausea, vomiting but does endorse palpitations. He denies any associated confusion, syncope or falls. He took some nitroglycerin with no improvement. He has identified some shortness of air with activity worse over the last few days. In the ED his ECG identified atrial flutter with no acute ST-T changes. His troponin is negative. His chest x-ray is concerning for congestive heart failure and his proBNP is elevated at 2350. His history is significant for cardiac catheterization June 2024 with 6 stents deployed. He reports compliance with his anticoagulation therapy. Hospital Course Hospital Course Hospital Course: This is a 74-year-old male with routine cardiology evaluations and cardiac catheterization June 04, 2024 requiring 6 stents. He reports compliance with his anticoagulation therapy. In the ED his chest imaging and proBNP are elevated consistent with acute heart failure. Problems addressed as follows: #Chest pressure #HFrEF exacerbation #Bibasilar community-acquired pneumonia #History of CAD with stents #Hypertension ? Presented with 2-day history of chest pressure, slight shortness of breath. BNP 2350, with volume overload. CXR showing suspected bibasilar pneumonia. ? Improved with IV diuresis, IV antibiotics. ? Troponins negative, EKG without acute ischemic changes. ? ECHO obtained, pending report at this time. ? Discussed with Dr. Raman, and given that patient's symptoms resolved with diuresis and antibiotics and a recent heart cath no plans for intervention at this time. ? Discharged with Bumex 1 mg daily, spironolactone 25 mg, doxycycline 100 mg twice daily. ? Continue home carvedilol, Plavix, losartan. ? Advised patient to follow-up with cardiology closely. #A-fib ? Currently rate controlled. Continue home amiodarone, Coreg, Xarelto. BMI 38 Complicates all aspects of care Total time spent on discharge: 32 minutes on chart review, counseling, documentation, and direct care with patient. Exam Data for Last 24 hours Vital signs and Labs for Last 24 Hours: Temp Pulse Resp BP Pulse Ox O2 Del Method 97.8 F 100 H 20 125/85 94 L Room Air 07/24/24 12:00 07/24/24 12:17 07/24/24 12:00 07/24/24 12:00 07/24/24 12:00 07/24/24 14:10 Laboratory Results - last 24 hr 07/23/24 17:25: WBC 7.8, RBC 4.99, Hgb 14.3, Hct 42.8, MCV 85.8, MCH 28.7, MCHC 33.4, RDW 13.9, Plt Count 268, MPV 10.0, Neut % (Auto) 72.9, Lymph % (Auto) 13.2, [place] % (Auto) 12.1 H, Eos % (Auto) 1.2, Baso % (Auto) 0.3, Neut # (Auto) 5.7, Lymph # (Auto) 1.0, [place] # (Auto) 0.9, Eos # (Auto) 0.1, Baso # (Auto) 0.0, PT 11.6, INR 1.05, APTT 26.5, D-Dimer 0.65 H, Sodium 136, Potassium 4.3, Chloride 104, Carbon Dioxide 24, Anion Gap 12.3, BUN 21 H, Creatinine 1.40 H, Estimated Creat Clear 88, Estimated GFR 49 L, Est GFR ( Amer) 60, Glucose 140 H, Calcium 9.0, Magnesium 1.8, Total Bilirubin 0.7, AST 30, ALT 44, Alkaline Phosphatase 61, Troponin I < 0.01, NT-Pro-B Natriuret Pep 2350 H, Total Protein 7.3, Albumin 4.6, Globulin 2.7, Albumin/Globulin Ratio 1.7, Lipase 98 07/23/24 20:44: Troponin I < 0.01 07/23/24 23:28: Troponin I 0.02 07/24/24 05:07: Sodium 139, Potassium 3.6, Chloride 100, Carbon Dioxide 31 H, Anion Gap 11.6, BUN 22 H, Creatinine 1.40 H, Estimated Creat Clear 70, Estimated GFR 49 L, Est GFR ( Amer) 60, Glucose 138 H, Hemoglobin A1c 6.5 H, Calcium 9.0, Magnesium 2.0 D, Troponin I 0.02, Triglycerides 87, Cholesterol 166, LDL Cholesterol Direct 111.79, VLDL Cholesterol 17, HDL Cholesterol 34 L, Cholesterol/HDL Ratio 4.9 H I & O for Last 24 hours: Intake & Output 07/21/24 07/22/24 07/23/24 07/24/24 23:59 23:59 23:59 23:59 Intake Total 860 / 860 Output Total 3300 / 3750 1650 / 1650 Balance -3300 / -3630 -790 / -790 Weight 136.078 kg 108.454 kg Constitutional Constitutional: no acute distress *Routine HEENT Exam Head: Present normocephalic Eye: Present EOMI and PERRL ENT: Present mucous membranes moist *Routine Neck Exam Neck: Present supple; Absent lymphadenopathy *Routine Respiratory Exam Respiratory: Present CTA bilaterally *Routine Cardiovascular Exam Cardiovascular: Present RRR *Routine Abdominal Exam Abdominal: Present soft and normoactive bowel sounds; Absent tenderness *Routine Extremities Exam Extremities: Absent cyanosis, clubbing or edema *Routine Skin Exam Skin: Present warm; Absent rash *Routine Neurological Exam Neurological: Present alert and oriented X3 Results Data Completed and Pending Labs on day of discharge: Labs from last 24 hours 07/24/24 07/23/24 07/23/24 05:07 23:28 20:44 WBC RBC Hgb Hct MCV MCH MCHC RDW Plt Count MPV Neut % (Auto) Lymph % (Auto) [place] % (Auto) Eos % (Auto) Baso % (Auto) Neut # (Auto) Lymph # (Auto) [place] # (Auto) Eos # (Auto) Baso # (Auto) PT INR APTT D-Dimer Sodium 139 Potassium 3.6 Chloride 100 Carbon Dioxide 31 H Anion Gap 11.6 BUN 22 H Creatinine 1.40 H Estimated Creat Clear 70 Estimated GFR 49 L Est GFR ( Amer) 60 Glucose 138 H Hemoglobin A1c 6.5 H Calcium 9.0 Magnesium 2.0 D Total Bilirubin AST ALT Alkaline Phosphatase Troponin I 0.02 0.02 < 0.01 NT-Pro-B Natriuret Pep Total Protein Albumin Globulin Albumin/Globulin Ratio Triglycerides 87 Cholesterol 166 LDL Cholesterol Direct 111.79 VLDL Cholesterol 17 HDL Cholesterol 34 L Cholesterol/HDL Ratio 4.9 H Lipase 07/23/24 17:25 WBC 7.8 RBC 4.99 Hgb 14.3 Hct 42.8 MCV 85.8 MCH 28.7 MCHC 33.4 RDW 13.9 Plt Count 268 MPV 10.0 Neut % (Auto) 72.9 Lymph % (Auto) 13.2 [place] % (Auto) 12.1 H Eos % (Auto) 1.2 Baso % (Auto) 0.3 Neut # (Auto) 5.7 Lymph # (Auto) 1.0 [place] # (Auto) 0.9 Eos # (Auto) 0.1 Baso # (Auto) 0.0 PT 11.6 INR 1.05 APTT 26.5 D-Dimer 0.65 H Sodium 136 Potassium 4.3 Chloride 104 Carbon Dioxide 24 Anion Gap 12.3 BUN 21 H Creatinine 1.40 H Estimated Creat Clear 88 Estimated GFR 49 L Est GFR ( Amer) 60 Glucose 140 H Hemoglobin A1c Calcium 9.0 Magnesium 1.8 Total Bilirubin 0.7 AST 30 ALT 44 Alkaline Phosphatase 61 Troponin I < 0.01 NT-Pro-B Natriuret Pep 2350 H Total Protein 7.3 Albumin 4.6 Globulin 2.7 Albumin/Globulin Ratio 1.7 Triglycerides Cholesterol LDL Cholesterol Direct VLDL Cholesterol HDL Cholesterol Cholesterol/HDL Ratio Lipase 98 DS: Diagnosis Discharge Diagnosis (1) New onset of congestive heart failure: Status: Acute Code(s): I50.9 - Heart failure, unspecified (2) Coronary artery disease: Status: Acute Code(s): I25.10 - Atherosclerotic heart disease of [place] coronary artery without angina pectoris (3) Unstable angina: Status: Acute Code(s): I20.0 - Unstable angina (4) Paroxysmal atrial fibrillation: Status: Acute Code(s): I48.0 - Paroxysmal atrial fibrillation (5) Acute kidney injury: Status: Acute Code(s): N17.9 - Acute kidney failure, unspecified Meds Home Medications and Allergies Home Medications ?Medication ?Instructions ?Recorded ?Confirmed ?Type amiodarone 200 mg tablet 200 mg PO DAILY 06/04/24 History clopidogrel 75 mg tablet (Plavix) 75 mg PO DAILY 06/0407/27/24 History ezetimibe 10 mg tablet 10 mg PO DAILY 06/04/2407/02 History losartan 50 mg tablet 50 mg PO BID 06/04/24 History sitagliptin phosphate 50 mg tablet 50 mg PO DAILY 06/2525 History (Januvia) carvedilol 12.5 mg tablet 12.5 mg PO BID 30 days #60 t abs 06/05/24 07/27/24 Rx cholecalciferol (vitamin D3) 50 50 mcg PO DAILY 07/27/24 History mcg (2,000 unit) tablet nitroglycerin 0.4 mg sublingual 0.4 mg sublingual Q5MI MANAGER OF DISASTER RECOVERY PRN Chest 06/05/24 07/27/24 History tablet Pain bumetanide 1 mg tablet 1 mg PO DAILY #30 tabs 07/2407/27/24 Rx doxycycline hyclate 100 mg tablet 100 mg PO BID 5 days #9 tabs 07/24/24 07/27/24 Rx spironolactone 25 mg tablet 25 mg PO DAILY 30 days #30 tabs 07/24/24 07/27/24 Rx evolocumab 140 mg/mL subcutaneous 140 mg SQ Q2W #3 mL 07/27/24 07/27/24 Rx syringe (Repatha Syringe) rivaroxaban 15 mg tablet (Xarelto) 15 mg PO DAILY #90 tabs 07/27/24 07/27/24 Rx New Prescriptions to Start Prescriptions: bumetanide Marco Antonio Kapadia doxycycline hyclate Marco Antonio Kapadia spironolactone Marco Antonio Kapadia Allergies Allergy/AdvReac Type Severity Reaction Status Date / Time Hezdsgb-HDS-SdQ Reductase Allergy Muscle Pain Verified 07/27/24 13:43 Inhibitor sulfamethoxazole (From Allergy Swelling Verified 07/27/24 13:43 Bactrim) of Lip/Tongue/Throat trimethoprim (From Bactrim) Allergy Swelling Verified 07/27/24 13:43 of Lip/Tongue/Throat Discharge Plan Disposition Patient Disposition: Home, Self-Care Condition: Fair Follow up Plan Follow up with: Evelyn Ramirez PA [Primary Care Provider, Medical] - Enter time for follow up Referral Note: Please call your family doctor on Friday (07/27/2024) to schedule your hospital follow up appointment due to Friday being ! Thank you! Chaitanya Alonso PA [Physician Digital Solutions Architect, Cardiology] - 07/27/24 Referral Note: Please call the cardiology office on Friday (07/27/2024) to schedule your 2 week follow up appointment due to Friday! Thank you! Prescriptions/Medication Reconciliation: New spironolactone 25 mg Tablet 25 mg PO DAILY 30 Days Qty: 30 0RF doxycycline hyclate 100 mg Tablet 100 mg PO BID 5 Days Qty: 9 0RF bumetanide 1 mg tablet 1 mg PO DAILY Qty: 30 0RF Continued losartan 50 mg Tablet 50 mg PO BID amiodarone 200 mg Tablet 200 mg PO DAILY clopidogrel [Plavix] 75 mg Tablet 75 mg PO DAILY ezetimibe 10 mg Tablet 10 mg PO DAILY Januvia 50 mg Tablet 50 mg PO DAILY nitroglycerin 0.4 mg tablet, sublingual 0.4 mg sublingual Q5MINP PRN (Reason: Chest Pain) Patient Comments: DISSOLVE 1 TABLET UNDER TONGUE EVERY 5 MINUTES FOR 3 DOSES NEEDED FOR CHEST PAIN-NO RELIEF CALL 911 cholecalciferol (vitamin D3) 50 mcg (2,000 unit) tablet 50 mcg PO DAILY Patient Comments: TAKE 1 TABLET BY MOUTH EVERY DAY carvedilol 12.5 mg Tablet 12.5 mg PO BID 30 Days Qty: 60 0RF No Action Xarelto 15 mg tablet 15 mg PO DAILY Qty: 90 3RF Rx Instructions: must administer with evening meal Repatha Syringe 140 mg/mL syringe 140 mg SQ Q2W Qty: 3 2RF Problem Reconciliation Problems Reviewed?: Yes Patient Discharge Instructions Patient Instructions: DI for Heart Failure, Acute Kidney Injury, DI for Coronary Artery Disease, Stop Light Heart Failure Print Language: Iranian Providers Primary Care Provider: Evelyn Ramirez Admit Provider: Marco Antonio Kapadia Attending Provider: Marco Antonio Kapadia
--- NOTE | 2024-07-27 15:28 | CARE MANAGER ---
Called and spoke with patient regarding recent discharge. Patient stated that he is doing well, just left his f/u appt with cardiology and has started new medication prescribed at discharge. Patient voiced no concerns at time of call.
== END 2024-07-24 17:13 | disposition home or self-care (01) ==
LOC: ER 19:23 → 2ND 19:44
PROVIDERS: Family Medicine; Admitting Provider Student in an Organized Health Care Education/Training Program; Emergency Provider Emergency Medicine; PCP Physician Assistant; Visit Provider Student in an Organized Health Care Education/Training Program
DX: I13.0 Hypertensive heart and chronic kidney disease with heart failure and stage 1 through stage 4 chronic kidney disease, or unspecified chronic kidney disease (principal); I25.110 Atherosclerotic heart disease of native coronary artery with unstable angina pectoris; I48.0 Paroxysmal atrial fibrillation; E11.22 Type 2 diabetes mellitus with diabetic chronic kidney disease; N17.9 Acute kidney failure, unspecified; N18.9 Chronic kidney disease, unspecified; I50.21 Acute systolic (congestive) heart failure; I48.92 Unspecified atrial flutter; J90 Pleural effusion, not elsewhere classified; J98.11 Atelectasis; E78.5 Hyperlipidemia, unspecified; J18.9 Pneumonia, unspecified organism; Z95.5 Presence of coronary angioplasty implant and graft; Z85.038 Personal history of other malignant neoplasm of large intestine; Z88.8 Allergy status to other drugs, medicaments and biological substances; Z88.2 Allergy status to sulfonamides; Z88.1 Allergy status to other antibiotic agents; Z79.84 Long term (current) use of oral hypoglycemic drugs; Z79.02 Long term (current) use of antithrombotics/antiplatelets; Z79.899 Other long term (current) drug therapy
CPT/HCPCS: 36415; 71045; 80048; 80053; 80061; 83036; 83690; 83735; 83880; 84484; 85025; 85378; 85610; 85730; 93005; 96374; 96375; 96376; 99291; G0378; J0696; J1938; J1939

== ENCOUNTER 2024-07-27 14:26 | Outpatient (CLI) | payer MEDICARE, SELFPAY | END 2024-07-27 23:59 | disposition home or self-care (01) | LOC: RT 14:27 | PROVIDERS: PCP Physician Assistant; Visit Provider Physician Assistant | DX: I48.92 Unspecified atrial flutter (principal); I48.0 Paroxysmal atrial fibrillation; I49.3 Ventricular premature depolarization | CPT/HCPCS: 93270 ==

== ENCOUNTER 2024-07-30 14:56 | Outpatient (CLI) | payer MEDICARE, SELFPAY ==
--- NOTE | 2024-07-30 | CA_ITS ---
APPROVED REPORT EXAM: Comprehensive 2D, Doppler, and color-flow Echocardiogram Unit Assembler: Roselyn Connolly RT(R) Ht: 6 ft 3 in Wt: 302lbs BSA: 2.61 BP: 138/85 mmHg Indications: AFIB, edema, HTN, DM, CHF, CAD 2D Dimensions Left Atrium 4.05 cm M: 3.0 - 4.0 LA Volume 65.30 mL LVOT 2.14 cm (M/F) 1.5-2.5 LA Volume Index 24.92 mL/m2 (M/F) 16-34 M-Mode Dimensions RVDd 3.91 cm (0.9-2.6) LVDd 5.14 cm (3.5-5.7) Ao Diam 3.11 cm (2.0-3.7) LVDs 3.78 cm (3.5-5.7) IVSd 1.15 cm (0.6-1.1) PWd 0.89 cm (0.6-1.1) EF (Teich) 51.50% FS 26.50% EDV (Teich) 126.10 mL ESV (Teich) 61.20 mL Left Ventricle The left ventricle is normal size. The left ventricular systolic function is normal. The left ventricular ejection fraction is within the normal range. Proximal septal thickening is present. There is normal LV segmental wall motion. The left ventricular diastolic function is normal. LVEF is 55%. Right Ventricle The right ventricle is normal size. The right ventricular systolic function is normal. Atria The left atrium size is normal. The right atrium size is normal. There is no Doppler evidence of interatrial shunt. Aortic Valve Aortic valve is mildly thickened. There is no aortic valvular stenosis. No aortic regurgitation is present. Mitral Valve The mitral valve is normal in structure. No evidence of mitral valve stenosis. Mild mitral regurgitation. Tricuspid Valve Tricuspid valve is grossly normal in structure and function. Trace tricuspid regurgitation. There is insufficient TR jet to estimate RVSP. Pulmonic Valve The pulmonary valve is normal in structure. Trace pulmonic regurgitation. Great Vessels The aortic root is normal in size. IVC is normal in size and collapses >50% with inspiration. Pericardium There is no pericardial effusion. Other Information Study Quality: Fair Conclusion Normal biventricular systolic function. Mild MR. Electronically signed by : Jaylin Erazo MD 08/09/2024 23:43:44
== END 2024-07-30 23:59 | disposition home or self-care (01) ==
LOC: RT 14:57
PROVIDERS: PCP Physician Assistant; Visit Provider Physician Assistant
DX: I34.0 Nonrheumatic mitral (valve) insufficiency (principal); I48.0 Paroxysmal atrial fibrillation; I11.0 Hypertensive heart disease with heart failure; I50.9 Heart failure, unspecified; E11.9 Type 2 diabetes mellitus without complications; I25.10 Atherosclerotic heart disease of native coronary artery without angina pectoris
CPT/HCPCS: 93306

== ENCOUNTER 2024-12-01 14:52 | Outpatient (CLI) | payer MEDICARE, OTHER, SELFPAY ==
--- NOTE | 2024-12-01 14:54 | XR_ITS ---
FINAL REPORT TECHNIQUE: Chest PA & Lateral CLINICAL HISTORY: Shortness of breath cough congestion/yellow sputum COMPARISON: 07/23/2024 FINDINGS: 2 views of the chest were performed. The heart size is mildly enlarged. The mediastinum is within normal limits. The lungs are underinflated. Mild congestion is noted. There are no pleural effusions. There is no pneumothorax. The bony thorax appears intact. IMPRESSION: Mild pulmonary congestion. Reviewed, Interpreted and Dictated by Ketan Deleon MD Transcribed by Sara Ahumada Authenticated and [facility]
--- OUTSIDE RECORDS SUMMARY | 2024-12-01 14:54 | XMS_ITS | Clinical Summary ---
Author Organization [facility] Address [address] [place] [address] Phone Care Team Providers Care City Designer Name Role Phone Unavailable Primary Care Provider Unavailabl e Social History Tobacco Use Types Packs/Day Years Used Date Smoking Tobacco: Never Assessed Sex and Gender Information Value Date Recorded Sex Assigned at Not on file Legal Sex Male 11:43 AM EST Gender Identity Not on file Sexual Orientation Not on file Last Filed Vital Signs Vital Sign Reading Time Taken Comments Blood Pressure 160/80 05/20/2014 1:35 PM EDT Pulse 76 05/20/2014 1:35 PM EDT Temperature 36.9 C (98.5 F) 05/20/2014 1:35 PM EDT Respiratory Rate 14 05/20/2014 1:35 PM EDT Oxygen Saturation - - Inhaled Oxygen Concentration - - Weight 135.1 kg (297 lb 12.8 oz) 05/20/2014 1:35 PM EDT Height 188 cm (6' 2 ) 05/20/2014 1:35 PM EDT Body Mass Index 38.24 05/20/2014 1:35 PM EDT Plan of Treatment Health Maintenance Due Date Last Done Comments Wellness Exam Medicare 1953 Hepatitis C Screening 05/26/1967 DTaP/TDaP/Td (1 - Tdap) 1968 Cologuard 1994 Colon Cancer Screening 1994 Colonoscopy 1994 FIT 1994 Sigmoidoscopy 1994 Virtual Colonography 1994 Pneumococcal Vaccine 50+ (1 of 1 - PCV) 05/26/1999 Zoster (1 of 2) 05/26/1999 RSV or 60+ (1 - 1-d ose 75+ series) 2024 COVID-19 Vaccine ( - 2023-2 5 season) 2024 Influenza Vaccine (#1) 2024 Hepatitis B Vaccine Aged Out No longe r eligible based on patient's age to complete this topic Meningococcal B Vaccine Aged Out No l onger eligible based on patient's age to complete this topic Insurance Member Subscriber Plan / Payer (Ef fective 2014-Present) Name:Marco Antonio Awad Relation to Subscriber:Self Name:Marco Antonio Awad Payer ID:[id number] (NAIC) Type:Not on file Address: [place] [phone] MEDICARE [place] PART A [place] B [place] SU[place]LEMENT
--- OUTSIDE RECORDS SUMMARY | 2024-12-01 14:54 | XMS_ITS | Clinical Summary ---
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 DVT on Coumadin Therapy I82.90 (ICD-10-CM ) 05/31 Active 05/31 Tasia Edwards Acute embolism and thrombosis of unspecified vein DVT 339154345 (SNOMED CT) 05/31 Inactive 05/31 Evelynjayla Longoria Deep venous thrombosis Obesity 446167567 (SNOMED CT) 05/31 Active 05/31 Andrea Reid Obesity NEPHROLITHIA SIS 97910814 (SNOMED CT) 05/25 Active 05/25 Abi Cornelius Kidney stone LEUKOCYTOSIS 249714884 (SNOMED CT) 05/25 Active 05/25 Abi Cornelius Leukocytosis FEVER 495579064 (SNOMED CT) 05/25 Active 05/25 Aib Cornelius Fever Lumbago 520176877 (SNOMED CT) 05/25 Active 05/25 Abi Cornelius Low back pain DIABETES MELITUS TYPE II E11.9 (ICD-10-CM ) 05/25 Active 05/25 Abi Cornelius Type 2 diabetes mellitus without complications Medications Medication Instructions Start Date Stop Date Generic Name NDC Provider HYDROCODONE-ACETA MINOPHEN 5-325 MG TABS HYDROCODONE-ACETA MINOPHEN 46820961629 Andrea Reid DOCUSATE SODIUM 250 MG CAPS DOCUSATE SODIUM 46113999499 Andrea Reid DOXYCYCLINE HYCLATE 100 MG CAPS DOXYCYCLINE HYCLATE 55126813694 Andrea Reid LOVENOX 120 MG/0.8ML SUBCUTANEOUS SOLUTION ENOXAPARIN SODIUM 60257294302 Andrea Reid COUMADIN 5 MG ORAL TABLET WARFARIN SODIUM 19762138617 Shruthi Sinclair FLOMAX 0.4 MG ORAL CAPSULE TAMSULOSIN HCL 07630350975 Shruthi Sinclair LOVASTATIN 20 MG TABS LOVASTATIN 99074824598 Shruthi Sinclair LISINOPRIL 20 MG TABS LISINOPRIL 70421398166 Shruthi Sinclair ERGOCALCIFEROL 1.25 MG (87082 UT) CAPS ERGOCALCIFEROL 59458095441 Shruthi Sinclair LOVENOX 120 MG/0.8ML SUBCUTANEOUS SOLUTION ENOXAPARIN SODIUM 45039533386 Shruthi Sinclair DOXYCYCLINE HYCLATE 100 MG CAPS DOXYCYCLINE HYCLATE 03836569043 Shruthi Sinclair DOCUSATE SODIUM 250 MG CAPS DOCUSATE SODIUM 09480246297 Shruthi Sinclair PLAVIX 75 MG TABS CLOPIDOGREL BISULFATE 71541048264 Shruthi Sinclair COREG 3.125 MG TABS CARVEDILOL 98882839737 Shruthi Sinclair ASPIRIN 325 MG TABS ASPIRIN 64953881052 Shruthi Sinclair METFORMIN HCL 500 MG TABS METFORMIN HCL 97011445545 Shruthi Sinclair OXYCODONE-ACETAMI NOPHEN 5-325 MG TABS OXYCODONE-ACETAMI NOPHEN 75002848774 Shruthi Sinclair Medications Administered No information available. Allergies, Adverse Reactions, Alerts No information available. Results Date Name Value Unit Range Flag Description Clinical Lists Update % EOS AUTO 3.4 % Eosinophil s/100 leukocytes in Blood by Automated count MONOCYTE % 10.1 % Monocytes/ 100 leukocytes in Blood by Automated count BILI TOTAL 0.4 mg/dL Bilirubin. total [Mass/volume] in Serum or Plasma CRPCARDRISK 1.300 mg/L C reactiv e protein [Mass/volume] in Serum or Plasma ALK PHOS 77 U/L Alkaline hebert sphatase [Enzymatic activity/volume] in Blood SGPT (ALT) 36 U/L Alanine am inotransferase [Enzymatic activity/volume] in Serum or Plasma SGOT (AST) 22 U/L Aspartate aminotransferase [Enzymatic activity/volume] in Serum or Plasma CALCIUM 9.4 mg/dL Calcium [Mole s/volume] in Serum or Plasma POTASSIUM 3.9 mmol/L Potassium [ Moles/volume] in Serum or Plasma SODIUM 141 mmol/L Sodium [Moles /volume] in Serum or Plasma CREATININE 0.6 mg/dL Creatinine [Mass/volume] in Serum or Plasma BUN 10 mg/dL Urea nitrogen [Mass/volume] in Serum or Plasma GLUCOSE SER 94 mg/dL Glucose [ Mass/volume] in Serum or Plasma LYMPHS % 24.8 % Lymphocytes/ 100 leukocytes in Blood by Automated count PMN % 60.9 % Neutrophils/1 00 leukocytes in Blood by Automated count PLATELETS 242 10*3/mm3 Platelets [#/volume] in Blood by Automated count HCT 40.3 % Hematocrit [V olume Fraction] of Blood by Automated count HGB 13.2 g/dL Hemoglobin [M ass/volume] in Blood RBC 4.69 10*6/mm3 Erythrocytes [#/volume] in Blood by Automated count WBC 5.80 10*3/mm3 Leukocytes [ #/volume] in Blood by Automated count Clinical Lists Update: Prelo ad SMOK STATUS never 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 Procedures No information available. Vital Signs Date Name Value Unit Description BMI (Body Mass Index) 34.10 kg/m2 Bod y Mass Index (Ratio) Body Temperature 97.9 [degF] temperat ure E&M BP Diastolic 64 mm[Hg] blood pressu re, diastolic BP Systolic 148 mm[Hg] blood pressur e, systolic Heart Rate 76 /min pulse rate Height 75 [in_us] height E&M Respiratory Rate 20 /min respirat ory rate E&M Weight Measured 271.8 [lb_av] weight E& M Weight Measured 271.8 [lb_av] weight E& M Immunizations No information available. Advance Directives No information available.
--- OUTSIDE RECORDS SUMMARY | 2024-12-01 14:54 | XMS_ITS | Clinical Summary ---
Author Organization [facility] Address [address] [place] [address] Care Team Providers Care Physicians And Surgeons Name Role Phone Unavailable Primary Care Provider Unavailabl e Source Comments [facility] is fully rolled out with thefollowing exceptions:General Clinical Research [facility] Social History Tobacco Use Types Packs/Day Years Used Date Smoking Tobacco: Never Assessed Sex and Gender Information Value Date Recorded Sex Assigned at Not on file Legal Sex Male 5:38 AM EST Gender Identity Not on file Sexual Orientation Not on file Plan of Treatment Health Maintenance Due Date Last Done Comments MMR IMMUNIZATION (1 of 1 - S tandard series) 1950 DTAP/Tdap/Td IMMUNIZATION (1 - Tdap) 1956 VARICELLA IMMUNIZATION (1 of 2 - 13+ 2-dose series) 1962 Respiratory Syncytial Virus (RSV) >60yo or (1 - 1-dose 75+ series) 2024 AMB SEASONAL FLU VACCINE (#1) 11/01/2024 COVID-19 Vaccine ( - 2023-2 5 season) 2024 HEPATITIS B IMMUNIZATION Aged Out No longer eligible based on patient's age to complete this topic HIB IMMUNIZATION Aged Out No longer e ligible based on patient's age to complete this topic HPV IMMUNIZATION Aged Out No longer e ligible based on patient's age to complete this topic IPV IMMUNIZATION Aged Out No longer e ligible based on patient's age to complete this topic MCV4 IMMUNIZATION Aged Out No longer eligible based on patient's age to complete this topic MENINGOCOCCAL B VACCINE Aged Out No l onger eligible based on patient's age to complete this topic Respiratory Syncytial Virus (RSV) <20mo Aged Out No longer eligible b ased on patient's age to complete this topic Insurance * Guarantor: Marco Antonio Awad Account Type Relation to Patient Date of Phone Billing Address [facility] Reference Lab Self 1950 [address] [place] [id number] JESUS STILES NON-TRADITIONAL
[2024-12-01 15:45] LABS: Hematocrit 43.7 % (42.0-52.0); Hemoglobin 13.8 g/dL (14.1-18.0); Immature Granulocytes % 0.4 %; Mean Corpuscular HGB Conc 31.6 g/dL (31.8-35.4); Mean Corpuscular Hemoglobin 27.9 pg (27.0-31.2); Mean Corpuscular Volume 88.3 fl (80-94); Nucleated Red Blood Cells % 0 %; Platelet Count 215 K/mm3 (142-424); Red Blood Count 4.95 M/mm3 (4.60-6.20); Red Cell Distribution Width-SD 45.6 fL; White Blood Count 5.6 K/mm3 (4.8-10.8)
[2024-12-01 16:21] LABS: Alanine Aminotransferase 31 U/L (12-78); Albumin Level 4.0 g/dl (3.5-5.0); Alkaline Phosphatase 76 U/L (38-126); Anion Gap 15.2 mEq/L (5-15); Aspartate Amino Transferase 21 U/L (17-59); Bilirubin,Direct 0.3 mg/dl (0.0-0.4); Bilirubin,Indirect 0.4 mg/dL (0.0-0.9); Bilirubin,Total 0.7 mg/dl (0.2-1.3); Bilirubin,Unconjugated 0.4 mg/dL (0.0-1.1); Blood Urea Nitrogen 16 mg/dl (9-20); Calcium 8.9 mg/dl (8.4-10.2); Carbon Dioxide 24 mmol/L (22.0-30.0); Chloride 104 mmol/L (98-107); Cholesterol 152 mg/dl (140-200); Creatinine,Serum 1.10 mg/dl (0.66-1.25); Estimated Glomerular Filt Rate 65 ml/min (>60); GFR (African American) 79 ML/MIN (>60); Glucose 110 mg/dl (74-100); HDL Cholesterol 33 mg/dl (40-60); Magnesium 1.9 mg/dl (1.6-2.3); Potassium 4.2 mmoL/L (3.5-5.1); Sodium 139 mmol/L (136-145); Total Protein,Serum 6.3 g/dl (6.3-8.2); Triglycerides 128 mg/dl (30-150)
[2024-12-01 16:34] LABS: Free T4 (Free Thyroxine) 1.44 ng/dl (0.78-2.19)
[2024-12-01 16:49] LABS: Thyroid Stimulating Hormone 6.38 uIU/mL (0.465-4.68)
== END 2024-12-01 23:59 | disposition home or self-care (01) ==
LOC: LAB 14:53
PROVIDERS: PCP Physician Assistant; Visit Provider Internal Medicine
DX: I25.118 Atherosclerotic heart disease of native coronary artery with other forms of angina pectoris (principal); I10 Essential (primary) hypertension; I48.0 Paroxysmal atrial fibrillation; E78.5 Hyperlipidemia, unspecified
CPT/HCPCS: 36415; 71046; 80048; 80061; 80076; 83735; 84439; 84443; 85025

== ENCOUNTER 2024-12-06 12:49 | Outpatient (CLI) | payer MEDICARE, OTHER, SELFPAY ==
--- OUTSIDE RECORDS SUMMARY | 2024-12-06 12:51 | XMS_ITS | Clinical Summary ---
Author Organization [facility] Address [address] [place] [address] Care Team Providers Care Crankshaft Grinder Name Role Phone Unavailable Primary Care Provider Unavailabl e Source Comments [facility] is fully rolled out with thefollowing exceptions:General Clinical Research [facility] Social History Tobacco Use Types Packs/Day [...] to Patient Date of Phone Billing Address [facility] Reference Lab Self 1950 [address] [place] [phone] JESUS STILES NON-TRADITIONAL
--- OUTSIDE RECORDS SUMMARY | 2024-12-06 12:51 | XMS_ITS | Clinical Summary ---
Author Organization [facility] Address [address] [place] [address] Phone Care Team Providers Care Business Support Associate Name Role Phone Unavailable Primary Care Provider [...] Payer ID:[id number] (NAIC) Type:Not on file Address: [place] [phone] [place] PART A [place] B [place] SU[place]
--- OUTSIDE RECORDS SUMMARY | 2024-12-06 12:51 | XMS_ITS | Continuity of Care Document ---
Author Organization MARJAN Adria Avilez [facility] Address [address] [place] [id number] Assessment Encounter Date Assessment Date Assessment LastModified by Organization Details LastModified Time 10/20/2024 10/20/2024 -Medications were reviewed and any necessary updates and renewals were made, patient instructed to complete as prescribed. -The potential side effects of medications were discussed. -Counseling was done on care goals and ways to prevent future hospitalizatio ns. -Further treatment per orders listed below. [email or web address] Not available 10/20/2024 13:33:02 Plan of Treatment Reminders Order Date Submit Date Provider Last Modified By Organization Details Last Modified Time Details Appointments Establis hed Patient 20 2025 01:00P M Evelyn Ramirez PA-C Not available Not available Not available Lab PSA, serum or plasma 2024 025 SELINA [facility], [address], [place], [place], [address], 10/21/2024 08:21:14 Referral None recorded . Procedures None recorded . Surgeries None recorded . Imaging None recorded . Medication Orders None recorded . Patient TargetsNo targets recorded. Patient Instructions Encounter Date Encounter Id Patient Instructions Last Modified By Organization Details Last Modified Time 10/20/2024 [id number] sleep apnea: car e instructions Not available 10/20/2024 14:18:23 high blood pressure: care instructions Not available 10/20/2024 14:18:23 learning about high blood pressure Not available 10/20/2024 14:18:23 prostate cancer screening: care instructions Not available 10/20/2024 14:18:23 prostate-specifi c antigen (PSA) test: about this test Not available 10/20/2024 14:18:23 CALL W CHANGES RTC OR ED IF SYMPTOMS CHANGE OR WORSEN KEEP NEXT INTERVAL CHECKUP f/u prn pt sees Dr tripp office in the next 2 weeks. Not available 10/20/2024 14:20:22 Reason for Referral None Reported. Results Created Date Observation Date Name Description Value Unit Range Abnormal Flag Note LastModifiedBy Organization Detail LastModifiedTime 10/21/19 25 10/21/2024 TSH+F REE T4 TSH 5.890 uIU/m L 0.450- 4.500 above high normal Not Available [facility] ([facility]) [address] [place], [address], 10/21/2024 08:21:13 10/21/19 25 10/21/2024 TSH+F REE T4 T4,free(dire ct) 1.41 NG/dL 0.82-1 .77 normal Not Available [facility] ([facility]) [address] [place], [address], 10/21/2024 08:21:13 10/21/19 25 10/21/2024 BASIC METAB OLIC PANEL (8) glucose 101 mg/dL 70-99 above high normal Not Available [facility] ([facility]) [address] [place], [address], 10/21/2024 08:21:13 10/21/19 25 10/21/2024 BASIC METAB OLIC PANEL (8) BUN 17 mg/dL 8-27 normal Not Available [facility] ([facility]) [address] [place], [address], 10/21/2024 08:21:13 10/21/19 25 10/21/2024 BASIC METAB OLIC PANEL (8) creatinine 1.62 mg/dL 0.76-1 .27 above high normal Not Available [facility] ([facility]) [address] [place], [address], 10/21/2024 08:21:13 10/21/19 25 10/21/2024 BASIC METAB OLIC PANEL (8) eGFR 44 mL/mi n/1.7 3 >59 below low normal Not Available [facility] ([facility]) [address] [facility], [address], 10/21/2024 08:21:13 10/21/19 25 10/21/2024 BASIC METAB OLIC PANEL (8) BUN/creatini ne ratio 10 10-24 normal Not Available [facility] ([facility]) [address] [facility], [place], [address], 10/21/2024 08:21:13 10/21/19 25 10/21/2024 BASIC METAB OLIC PANEL (8) sodium 139 mmol/ L 134-14 4 normal Not Available [facility] ([facility]) [address] [facility], [place], [address], 10/21/2024 08:21:13 10/21/19 25 10/21/2024 BASIC METAB OLIC PANEL (8) potassium 4.1 mmol/ L 3.5-5. 2 normal Not Available [facility] ([facility]) [address] [place], [address], 10/21/2024 08:21:13 10/21/19 25 10/21/2024 BASIC METAB OLIC PANEL (8) chloride 101 mmol/ L 96-106 normal Not Available [facility] ([facility]) [address] [place], [address], 10/21/2024 08:21:13 10/21/19 25 10/21/2024 BASIC METAB OLIC PANEL (8) carbon dioxide, total 22 mmol/ L 20-29 normal Not Available [facility] ([facility]) [address] [place], [address], 10/21/2024 08:21:13 10/21/19 25 10/21/2024 BASIC METAB OLIC PANEL (8) calcium 9.4 mg/dL 8.6-10 .2 normal Not Available [facility] ([facility]) [address] [facility], [place], [address], 10/21/2024 08:21:13 10/21/19 25 10/20/2024 PSA TOTAL (REFL EX TO FREE) reflex criteria Commen t The perce nt free PSA is perfo rmed on a refle x basis only when the total PSA is betwe en 4.0 and 10.0 ng/mL . Not Available [facility] ([facility]) [address] [facility], [place], [address], 10/21/2024 08:21:14 10/21/19 25 10/21/2024 PSA TOTAL (REFL EX TO FREE) prostate specific Ag 13.7 NG/mL 0.0-4. 0 above high normal Jory ECLIA metho dolog y. Accor ding to the Ameri can Urolo g[employer] Ass[employer] iatio n, Serum PSA shoul d decre ase and remai n at undet ectab le level s after radic al prost atect ary. The AUA defin es bioch emica l recur rence as an initi al PSA value 0.2 ng/mL or great er follo wed by a subse quent confi rmato ry PSA value 0.2 ng/mL or great er. Value s obtai jose cruz with diffe rent assay metho ds or kits canno t be used inter white eably . Resul ts canno t be inter prete d as absol yurok evide nce of the prese nce or absen ce of michaela cruz se. Not Available [facility] ([facility]) [address] [facility], [place], [address], 10/21/2024 08:21:14 12/02/19 25 12/01/2024 XR, chest , 2 view No observ ation record ed. [email or web address], [place], [address], 12/02/2024 10:00:39 Result Notes None recorded. Problems Name Problem SNOMED Code Status Onset Date Resolution Date Notes Provider Name and Address Organization Details Recorded Time Diabetes mellitus 88569450 Active 2024 Evelyn Ramirez PA-C [address], [place], [address] , [place] - [facility] 08:12:22 Hypertensive disorder 27561555 Active 2024 Evelyn Ramirez PA-C [address], [place], [address] , [place] - [facility] 08:12:30 Hyperlipidemia 68932692 Active 2024 Evelyn Ramirez PA-C [address], [place], [address] , [place] - [facility] 5 08:12:37 Atrial fibrillation 26606239 Active 2024 Evelyn Ramirez PA-C [address], [place], [address] , [place] - [facility] 5 08:12:44 Obstructive sleep apnea syndrome 80032321 Active 2024 Evelyn Ramirez PA-C [address], [place], [address] , [place] - [facility] 5 08:12:56 Hypothyroidism 74906083 Active 2024 Evelyn Ramirez PA-C [address], [place], [address] , [place] - [facility] 5 09:54:09 Problem Notes None recorded. Procedures Surgical History Date Name Laterality Status Provider Name and Address Organization Details Recorded Time 10/21/19 25 Medication Reconcilliation completed Eduar PHILLIP - [facility] 10/20/2024 13:33:02 09/17/19 25 Advance Care Planning completed Eduar PHILLIP - [facility] 09/16/2024 07:17:12 09/17/19 25 Functional Status Assessed completed Eduar PHILLIP - [facility] 09/16/2024 07:17:12 08/03/19 25 Medication Reconcilliation completed Eduar PHILLIP - [facility] 08/02/2024 15:22:55 09/16/19 24 Advance Care Planning completed Eduar PHILLIP - [facility] 09/16/2023 14:12:00 09/16/19 24 Functional Status Assessed completed Eduar PHILLIP - [facility] 09/16/2023 14:12:00 02/07/20 10 Cancer Surgery completed Eduar PHILLIP - [facility] 10/20/2024 13:37:42 Cataract Surgery completed Eduar PHILLIP - [facility] 09/16/2023 14:17:36 Back Surgery completed Eduar PHILLIP - [facility] 09/16/2023 14:17:41 dental surgery completed Eduar PHILLIP - [facility] 10/20/2024 13:37:42 Stress test completed Eduar PHILLIP - [facility] 10/20/2024 13:37:42 Cardiac Cath completed Eduar PHILLIP - [facility] 10/20/2024 13:37:42 Colonoscopy completed Eduar PHILLIP - [facility] 10/20/2024 13:37:42 Eye Surgery completed Eduar PHILLIP - [facility] 10/20/2024 13:37:42 Hernia Repair completed Eduar PHILLIP - [facility] 10/20/2024 13:37:42 Knee Surgery completed Eduar PHILLIP - [facility] 10/20/2024 13:37:42 Imaging Results None recorded. Procedure Notes None recorded. Medical Equipment None Reported. Allergies Allergen ID Allergen Name Allergen Category Reaction Reaction Severity Criticality Documentation Date Start Date Code Code System Note Provider Name and Address Organization Details Recorded Time 219039 Bactrim medicatio n muscle cramps Not available high 09/16/2023 11513 9 RxNorm MARJAN Sevilla - [facility] 14:10:11 722339 Product containin g 3-hydroxy -3-methyl glutaryl- coenzyme A reductase inhibitor (product) medicatio n muscle cramps Not available high 09/16/2023 84024 009 SNOMED MARJAN Sevilla - [facility] 14:10:31 023275 nifedipin e medicatio n lighthead edness moderate high 10/20/2024 7417 RxNorm Eduar Deluna null, [place] - [facility] 13:35:58 Medications Name Sig Start Date Stop Date Status Note LastModified by Organization Details LastModified Time losartan 50 mg tablet TAKE ONE (1) TABLET BY MOUTH TWICE DAILY active Not Available Not Available No t Available metformin 500 mg tablet Take 1 tablet twice a day by oral route for 90 days. 03/18 completed Not Available Not Available Not Available prednisone 10 mg tablet Take 1 tablet every day by oral route for 5 days. 03/18 completed Not Available Not Available Not Available carvedilol 12.5 mg tablet TAKE 1 TABLET BY MOUTH TWICE DAILY active Not Available Not Available No t Available amiodarone 200 mg tablet TAKE 1 TABLET BY MOUTH EVERY DAY active Not Available Not Available No t Available clopidogrel 75 mg tablet TAKE 1 TABLET BY MOUTH EVERY DAY active Not Available Not Available No t Available amlodipine 5 mg tablet TAKE 1 TABLET BY MOUTH EVERY DAY 08/02 completed Not Available Not Available Not Available spironolact one 25 mg tablet TAKE 1 TABLET BY MOUTH ONCE DAILY FOR 30 DAYS 09/16 completed Not Available Not Available Not Available carvedilol 3.125 mg tablet Take 1 tablet twice a day by oral route for 90 days. 08/02 completed Not Available Not Available Not Available levothyroxi ne 25 mcg tablet TAKE ONE (1) TABLET EVERY DAY BY ORAL ROUTE FOR 30 DAYS. active Not Available Not Available No t Available doxycycline monohydrate 100 mg capsule Take 1 capsule twice a day by oral route for 10 days. 2024 active Not Available Not Available Not Avai lable nitroglycer in 0.4 mg sublingual tablet DISSOLVE 1 TABLET UNDER TONGUE EVERY 5 MINUTES FOR 3 DOSES NEEDED FOR CHEST PAIN-NO RELIEF CALL 911 active Not Available Not Available No t Available betamethaso ne dipropionat e 0.05 % topical cream APPLY A THIN LAYER TO THE AFFECTED AREA(S) BY TOPICAL ROUTE ONCE DAILY active Not Available Not Available No t Available docusate sodium 100 mg capsule Take 1 capsule twice a day by oral route. active Not Available Not Available No t Available bumetanide 1 mg tablet TAKE 1 TABLET BY MOUTH ONCE DAILY 09/16 completed Not Available Not Available Not Available Vistaril 25 mg capsule Take 1 capsule twice a day by oral route as needed for 7 days. 03/18 completed Not Available Not Available Not Available levofloxaci n 500 mg tablet TAKE 1 TABLET BY MOUTH EVERY DAY FOR 14 DAYS 12/02 completed Not Available Not Available Not Available nifedipine ER 60 mg tablet,exte nded release TAKE 1 TABLET BY MOUTH EVERY DAY 10/20 completed Not Available Not Available Not Available lisinopril 40 mg tablet Take 1 tablet twice a day by oral route for 90 days. 03/18 completed Not Available Not Available Not Available doxycycline hyclate 100 mg tablet TAKE 1 TABLET BY MOUTH TWICE DAILY FOR 5 DAYS 09/15 completed Not Available Not Available Not Available Vitamin B12 500 mcg tablet Take 1 tablet every day by oral route. active Not Available Not Available No t Available ezetimibe 10 mg tablet TAKE ONE (1) TABLET EVERY DAY BY ORAL ROUTE FOR 90 DAYS. active Not Available Not Available No t Available levalbutero l HFA 45 mcg/actuati on aerosol inhaler 2024 active Not Available Not Available Not Avai lable Januvia 50 mg tablet TAKE 1 TABLET EVERY DAY active Not Available Not Available No t Available cholecalcif matias (vitamin D3) 50 mcg (2,000 unit) tablet TAKE 1 TABLET BY MOUTH EVERY DAY active Not Available Not Available No t Available Vitamin D3 50 mcg (2,000 unit) capsule Take 1 capsule every day by oral route for 90 days. 2024 active Not Available Not Available Not Avai lable Xarelto 10 mg tablet Take 1 tablet every day by oral route for 90 days. 08/02 completed Not Available Not Available Not Available Xarelto 15 mg tablet TAKE 1 TABLET BY MOUTH EVERY DAY MUST ADMINISTE R WITH EVENING MEAL active Not Available Not Available No t Available Repatha SureClick 140 mg/mL subcutaneou s pen injector INJECT 140MG SUBCUTANE OUSLY EVERY TWO (2) WEEKS active Not Available Not Available No t Available Vitals Date Recorded Body height Body mass index (BMI) Body weight Body temperature Pain severity - 0-10 verbal numeric rating [Score] - Reported Respiratory rate Oxygen saturation Oxygen saturation in Arterial blood by Pulse oximetry Heart rate Systolic And Diastolic Provider Name and Address Organization Details Last Updated DateTime 185.42 cm 40 kg/m2 943095. 49 g 97.5 [degF] 0 14 /min 95 % 95 % 75 /min 132/88 mm[Hg] Eduar Deluna [place] - [facility] 13:37:23 Social History Question Answer Notes LastModified by Organizat ion Details LastModified Time Tobacco Smoking Status Never Smoker Eduar [place], [place] - [facility] 09/16/2023 14:17:05 Do You Have An Advance Directive? No [email or web address] Information n ot available 10/20/2024 Are You Blind Or Do You Have Difficulty Seeing? No [email or web address] Information n ot available 09/16/2023 Is Blood Transfusion Acceptable In An Emergency? Yes [email or web address] Information not available 10/20/2024 What Is Your Level Of Caffeine Consumption? Moderate [email or web address] Information not available 09/16/2023 How Much Tobacco Do You Chew? None Information not available 10/20/2024 In The 14 Days Before Symptom Onset, Have You Had Close Contact With A Laboratory-confirm ed COVID-19 While That Case Was Ill? No [email or web address] Information n ot available 09/16/2023 In The 14 Days Before Symptom Onset, Have You Had Close Contact With A Person Who Is Under Investigation For COVID-19 While That Person Was Ill? No [email or web address] Information not available 09/16/2023 Have You Been To An Area Known To Be High Risk For COVID-19? No [email or web address] Information not available 09/16/2023 Are You Deaf Or Do You Have Serious Difficulty Hearing? No [email or web address] Information not available 09/16/2023 Have You Processed Blood Or Body Fluids From An Ebola Virus Disease Patient Without Appropriate PPE? No [email or web address] Information not available 09/16/2023 Do You Reside In Or Have You Traveled To An Area Where Ebola Virus Transmission Is Active? No [email or web address] Information not available 09/16/2023 What Is The Highest Grade Or Level Of School You Have Completed Or The Highest Degree You Have Received? PU46283-4 [email or web address] Information not available 10/20/2024 Have You Recently Or Are You Planning To Travel To An Area With Zika Virus? No [email or web address] Information not available 09/16/2023 What Was The Date Of Your Most Recent Tobacco Screening? 10/20/2024 [email or web address] Information not available 10/20/2024 Do You Use Protection Against STDs? No [email or web address] Information not available 10/20/2024 What Is Your Relationship Status? [email or web address] Information not available 10/20/2024 Do You Use Your Seat Belt Or Car Seat Routinely? No [email or web address] Information not available 10/20/2024 Are You Sexually Active? Yes [email or web address] Information not available 10/20/2024 Do You Have Smoke And Carbon Monoxide Detectors In Your Home? Yes [email or web address] Information not available 10/20/2024 Are You Passively Exposed To Smoke? No [email or web address] Information no t available 10/20/2024 Do You Use Sunscreen Routinely? No [email or web address] Information not available 10/20/2024 Has Tobacco Cessation Counseling Been Provided? Yes [email or web address] Information not available 09/16/2023 On What Date Was Tobacco Cessation Counseling Provided? 10/20/2024 Information not available 10/20/2024 Do You Have Difficulty Walking Or Climbing Stairs? No [email or web address] Information not available 09/16/2023 Sex: Male Functional Status Question Answer Note LastModified by Organizat ion Details LastModified Time Do you or have you ever used smokeless tobacco? Never used smokeless tobacco [email or web address] Information not available 10/20/2024 Are you currently employed? Yes [email or web address] Information not available 10/20/2024 Do you have transportation difficulties? No [email or web address] Information not available 09/16/2023 Are you able to care for yourself independently? Yes [email or web address] Information not available 09/16/2023 Do you have difficulty dressing, bathing, grooming, or toileting? No [email or web address] Information not available 09/16/2023 Do you or have you ever used e-cigarettes or vape? Never used electronic cigarettes [email or web address] Information not available 10/20/2024 What is your exercise level? Occasional Information not available 10/20/2024 Do you use any illicit or recreational drugs? No [email or web address] Information not available 09/16/2023 Do you or have you ever used any other forms of tobacco or nicotine? No [email or web address] Information not available 09/16/2023 What is your level of alcohol consumption? None Information not available 09/16/2023 Are you able to walk independently without assistance or assistive devices? YESWOREST [email or web address] Information not available 09/16/2023 Do you have difficulty doing errands alone? No [email or web address] Information not available 09/16/2023 What is your occupation? [employer] [email or web address] Information not available 10/20/2024 Mental Status Question Answer Note LastModified by Organizat ion Details LastModified Time Do you feel stressed (tense, restless, nervous, or anxious, or unable to sleep at night)? [id number] [email or web address] Information not available 10/20/2024 Do you have difficulty concentrating, remembering or making decisions? No [email or web address] Information no t available 09/16/2023 Family History Relationship Description Onset Age of this Age Resolved Age Notes LastModified by Organization Details LastModified Time Father No current problems or disability [email or web address] Not available 14:16:14 Mother No current problems or disability [email or web address] Not available 14:16:14 Medical History Condition Response Diabetes Y Heart Problems Y Muscle, Joint, or Bone Problems Y Atrial Fibrillation Y Vision or Eye Problems Y Arthritis Y Hernia Y Erectile Dysfunction Y Cancer Y Kidney or Bladder Problems Y Hypercholesterolemia Y Sleep Apnea Y Heart Disease Y Hypertension Y Immunizations Vaccine Type Date Status Note Provider Nam e and Address Organization Details Recorded Time Tdap 01/06/2013 completed MARJAN Sevilla [facility] 09/18/2023 15:49:14 zoster live 01/06/2013 completed MARJAN Sevilla [facility] 09/18/2023 15:49:14 Past Encounters Encounter ID Performer Location Encounter Start Date Encounter Closed Date Diagnosis/Indication Diagnosis SNOMED-CT Code Diagnosis ICD10 Code Diagnosis IMO Codes Diagnosis Note [id number] AMBER Wilkisn [facility] [address] [place] [address] 10/20/2024 13:22:18 10/20/2024 14:37:55 Essential hypertension 82538455 I10 37073 he is not to take nifedipine . BP was ok in office. he has f/u in two weeks. pt has lab order for bmp and tsh Prostate s pecific antigen measurement 46163412 Z12.5 834487 Thyroid ho rmone tests outside reference range 307107097 R79.89 597888 order for tsh is in lab we will draw today. Obstructiv e sleep apnea syndrome 36956593 G47.33 7346178 Pt uses cpap nightly and it helps. He benefits from using. Health Concerns Section Related Observation LastModified by Organization Detai ls LastModified Time None Recorded Concern Status LastModified by Organization Details LastModified Time None Recorded Payers Encounter Date Sequence Insurance Name Policy Number Policy Pearson Covered Member ID Pearson Member ID Guarantor Name 10/20/2024 1 [place] Marco Antonio Awad [id number] Marco Antonio Awad Notes Date Note Type Note Provider Name and Address Organization Details Recorded Time 10/20/2024 text/html Emergency Depart ment Follow-Up RecordReported by Patient Patient is here for hospital follow up. Pt went to Er for high BP. He saw PA with Dr Raman and they gave nifedipine. He stated after one pill he was on tracker and he was going to pass out. He was pale and BP was very low 70/38. He went to Er. He got fluids and tests done. All test was ok. His bp went back up. He has not taking this med again. He f/u with Dr raman in 2 weeks. Pt also needs lab work done today.Patient would like psa drawn today.Pt needs new Cpap supplies. Evelyn Ramirez PA-C [facility] [address], [place], [address], [place] - [facility] 10/20/2024 14:20:37
--- OUTSIDE RECORDS SUMMARY | 2024-12-06 12:51 | XMS_ITS | Data Portability ---
Author Organization [facility] Address [address] [place] [address] Assessment Encounter Date Assessment Date Assessment LastModified by Organization Details LastModified Time 08/02/2024 08/02/2024 -Medications wer e reviewed and any necessary updates and renewals were made, patient instructed to complete as prescribed. -The potential side effects of medications were discussed. -Counseling was done on care goals and ways to prevent future hospitalizations. -Further treatment per orders listed below. [email or web address] Not available 08/02/2024 15:22:54 08/11/2024 08/11/2024 -Medications wer e reviewed and any necessary updates and renewals were made, patient instructed to complete as prescribed. -The potential side effects of medications were discussed. -Counseling was done on care goals and ways to prevent future hospitalizations. -Further treatment per orders listed below. Not available 08/11/2024 14:00:52 09/16/2024 09/16/2024 Patient presente d to office today for their Medicare Annual Wellness Visit. Education was provided on healthy nutrition, including a diet rich in fruits and vegetables, minimizing simple carbohydrates, salt, and saturated fats. Encouraged regular cardiovascular exercise such as walking at least 30 minutes daily, 5 times per week. Emphasized preventive health measures and educated pt on fall prevention and community-based lifestyle interventions to help reduce health risks and promote healthy living. Medicare Preventive Services Check List reviewed and printed for patient. [email or web address] Not available 09/16/2024 07:17:12 10/20/2024 10/20/2024 -Medications wer e reviewed and any necessary updates and renewals were made, patient instructed to complete as prescribed. -The potential side effects of medications were discussed. -Counseling was done on care goals and ways to prevent future hospitalizations. -Further treatment per orders listed below. [email or web address] Not available 10/20/2024 13:33:02 Plan of Treatment Reminders Order Date Submit Date Provider Last Modified By Organization Details Last Modified Time Details Appointments Krista patel Patient 20 2025 01:00P M Evelyn Ramirez PA-C Not available Not available Not available Lab PSA, serum or plasma 2024 025 SELINA [facility], [address], [place] [address], [place], [address], 10/21/2024 08:21:14 vitamin B12, serum 2024 025 SELINA [facility], [address], [place] [address], [place], [address], 09/17/2024 08:20:49 HbA1c (hemoglo bin A1c), blood 2024 025 SELINA [facility], [address], [place], [place], [address], 09/17/2024 08:20:49 CMP, serum or plasma 2024 025 SELINA [facility], [address], [place], [place], [address], 09/17/2024 08:20:47 lipid panel, serum 2024 025 BREMEN [facility], [address], [place], [place], [address], 09/17/2024 08:20:48 microalb umin/cre atinine, mass ratio, urine 2024 025 Replaced by [facility], [address] [place] [address], [place], [address], 09/16/2024 11:23:37 CBC w/ auto diff 2024 025 BREMEN [facility], [address], [place] [address], [place], [address], 09/17/2024 08:20:47 TSH + free T4, serum 2024 025 SELINA [facility], [address], [place], [place], [address], 09/17/2024 08:20:46 [email or web address] n and folate panel, serum 2024 025 SELINA [facility], [address], [place], [place], [address], 08/12/2024 08:27:55 TSH + free T4, serum 2024 025 SELINA [facility], [address], [place], [place], [address], 08/12/2024 08:27:53 CBC w/ auto diff 2024 025 SELINA [facility], [address], [place], [place], [address], 08/12/2024 08:27:53 CMP, serum or plasma 2024 025 SELINA [facility], [address], [place], [place], [address], 08/12/2024 08:27:54 Referral diabetic ophthalm ology referral 2024 025 Navin Hebert MD, [address] [place], [address], 11/22/2024 14:43:18 Procedures None recorded . Surgeries None recorded . Imaging XR, chest, 2 view 2024 025 SELINA Not available 08/03/2024 08:15:33 Medication Orders Januvia 50 mg tablet [address] [facility], [address] [place] [address] , [place], [address], 09/16/2024 09:55:47 losartan 50 mg tablet [address], [address], 04/19/2024 14:47:01 Januvia 50 mg tablet [address], [address], 04/19/2024 14:47:07 Xarelto 10 mg tablet [address], [address], 08/02/2024 17:09:44 Vitamin D3 50 mcg (2,000 unit) capsule [address], [address], 04/19/2024 14:47:03 clopidog rel 75 mg tablet [address], [address], 04/19/2024 14:47:11 amiodaro ne 200 mg tablet [address], [address], 04/19/2024 14:47:02 carvedil ol 3.125 mg tablet 2024 025 [email or web address], [address], 08/02/2024 15:27:40 amlodipi ne 5 mg tablet 2024 025 [email or web address] [address], [address], 08/02/2024 15:27:20 Patient TargetsNo targets recorded. Patient Instructions Encounter Date Encounter Id Patient Instructions Last Modified By Organization Details Last Modified Time 04/19/2024 [id number] CALL W CHANGES RTC OR ED IF SYMPTOMS CHANGE OR WORSEN KEEP NEXT INTERVAL CHECKUP f/u prn Not available 04/19/2024 14:47:47 08/02/2024 [id number] pneumonia: care instructions Not available 08/02/2024 16:03:35 heart failure: care instructions Not available 08/02/2024 16:03:35 learning about heart failure Not available 08/02/2024 16:03:35 CALL W CHANGES RTC OR ED IF SYMPTOMS CHANGE OR WORSEN KEEP NEXT INTERVAL CHECKUP Not available 08/02/2024 16:02:34 08/11/2024 [id number] pneumonia: care instructions Not available 08/11/2024 14:07:44 skin lesions: ca re instructions Not available 08/11/2024 14:10:06 heart failure: care instructions Not available 08/11/2024 14:07:44 learning about heart failure Not available 08/11/2024 14:07:44 CALL W CHANGES RTC OR ED IF SYMPTOMS CHANGE OR WORSEN KEEP NEXT INTERVAL CHECKUP f/u prn, remove skin lesion. Not available 08/11/2024 14:09:56 09/16/2024 [id number] advance directives: care instructions Not available 09/16/2024 09:55:35 sleep apnea: car e instructions Not available 09/16/2024 09:55:35 atrial fibrillation: care instructions Not available 09/16/2024 09:55:35 learning about depression Not available 09/16/2024 09:55:35 preventing falls : care instructions Not available 09/16/2024 09:55:35 medicare preventive services guide Not available 09/16/2024 09:55:35 high cholesterol : care instructions Not available 09/16/2024 09:55:35 prostate biopsy: about this test Not available 09/16/2024 09:55:35 hypothyroidism: care instructions Not available 09/16/2024 09:55:35 last dental exam- in 2023. 30 minutes spent with patient in review, examination, discussion, and coordination of care. CALL WITH CHANGES RTC OR GO TO ED IF SYMPTOMS CHANGE OR WORSEN DISCUSSED IMPORTANCE OF DIET AND EXERCISE ROUTINE HEALTH MAINTANENCE REVIEWED MEDS REVD WITH PATIENT TODAY, SIDE EFFECTS DISCUSSED AND PATIENT VOICES UNDERSTANDING OF THIS CHRONIC ISSUES ARE STABLE CONT CURRENT MEDICATIONS PERSCRIBED Not available 09/16/2024 09:53:47 10/20/2024 [id number] sleep apnea: car e instructions Not available [...] Not available 10/20/2024 14:20:22 Reason for Referral Diabetic Ophthalmology Refer ral for Diabetes mellitus Referring Physician: Evelyn Ramirez, Family Medicine, Encounter Date: 09/16/2024 Results Created Date Observation Date Name Description Value Unit Range Abnormal Flag Note LastModifiedBy Organization Detail LastModifiedTime 08/12/1908/12/2024 TSH+F REE T4 TSH 7.290 uIU/m L 0.450- 4.500 above high normal Not Available [facility] ([facility]) [address] [facility], [place], [address], 08/12/2024 08:27:53 08/12/1908/12/2024 TSH+F REE T4 T4,free(dire ct) 1.26 NG/dL 0.82-1 .77 normal Not Available [facility] ([facility]) [address] [place], [address], 08/12/2024 08:27:53 08/12/19 25 08/12/2024 CBC WITH DIFFE RENTI AL/PL ATELE T WBC 5.8 x10e3 /uL 3.4-10 .8 normal Not Available [facility] ([facility]) [address] [place], [address], 08/12/2024 08:27:53 08/12/1908/12/2024 CBC WITH DIFFE RENTI AL/PL ATELE T RBC 5.43 x10e6 /uL 4.14-5 .80 normal Not Available [facility] ([facility]) [address] [place], [address], 08/12/2024 08:27:53 08/12/19 25 08/12/2024 CBC WITH DIFFE RENTI AL/PL ATELE T hemoglobin 15.1 g/dL 13.0-1 7.7 normal Not Available [facility] ([facility]) [address] [place], [address], 08/12/2024 08:27:53 08/12/1908/12/2024 CBC WITH DIFFE RENTI AL/PL ATELE T hematocrit 48.1 % 37.5-5 1.0 normal Not Available [facility] ([facility]) [address] [place], [address], 08/12/2024 08:27:53 08/12/1908/12/2024 CBC WITH DIFFE RENTI AL/PL ATELE T MCV 89 fL 79-97 normal Not Available [facility] ([facility]) [address] [place], [address], 08/12/2024 08:27:53 08/12/19 25 08/12/2024 CBC WITH DIFFE RENTI AL/PL ATELE T MCH 27.8 pg 26.6-3 3.0 normal Not Available [facility] ([facility]) [address] [facility], [place], [address], 08/12/2024 08:27:53 08/12/19 25 08/12/2024 CBC WITH DIFFE RENTI AL/PL ATELE T MCHC 31.4 g/dL 31.5-3 5.7 below low normal Not Available [facility] ([facility]) [address] [facility], [place], [address], 08/12/2024 08:27:53 08/12/19 25 08/12/2024 CBC WITH DIFFE RENTI AL/PL ATELE T RDW 13.7 % 11.6-1 5.4 Not Available [facility] ([facility]) [address] [place], [address], 08/12/2024 08:27:53 08/12/19 25 08/12/2024 CBC WITH DIFFE RENTI AL/PL ATELE T platelets 322 x10e3 /uL 150-45 0 normal Not Available [facility] ([facility]) [address] [place], [address], 08/12/2024 08:27:53 08/12/19 25 08/12/2024 CBC WITH DIFFE RENTI AL/PL ATELE T neutrophils 69 % not estab. normal Not Available [facility] ([facility]) [address] [place], [address], 08/12/2024 08:27:53 08/12/19 25 08/12/2024 CBC WITH DIFFE RENTI AL/PL ATELE T lymphs 21 % not estab. normal Not Available [facility] ([facility]) [address] [place], [address], 08/12/2024 08:27:53 08/12/19 25 08/12/2024 CBC WITH DIFFE RENTI AL/PL ATELE T monocytes 8 % not estab. normal Not Available [facility] ([facility]) [address] [place], [address], 08/12/2024 08:27:53 08/12/19 25 08/12/2024 CBC WITH DIFFE RENTI AL/PL ATELE T eos 2 % not estab. normal Not Available [facility] ([facility]) [address] [place], [address], 08/12/2024 08:27:53 08/12/19 25 08/12/2024 CBC WITH DIFFE RENTI AL/PL ATELE T basos 0 % not estab. normal Not Available [facility] ([facility]) [address] [facility], [place], [address], 08/12/2024 08:27:53 08/12/19 25 08/12/2024 CBC WITH DIFFE RENTI AL/PL ATELE T immature cells LINOTYPE MACHINIST Not Available [facility] ([facility]) [address] [place], [address], 08/12/2024 08:27:53 08/12/19 25 08/12/2024 CBC WITH DIFFE RENTI AL/PL ATELE T neutrophils (absolute) 4.0 x10e3 /uL 1.4-7. 0 normal Not Available [facility] ([facility]) [address] [place], [address], 08/12/2024 08:27:53 08/12/19 25 08/12/2024 CBC WITH DIFFE RENTI AL/PL ATELE T lymphs (absolute) 1.2 x10e3 /uL 0.7-3. 1 normal Not Available [facility] ([facility]) [address] [place], [address], 08/12/2024 08:27:53 08/12/19 25 08/12/2024 CBC WITH DIFFE RENTI AL/PL ATELE T monocytes(ab solute) 0.5 x10e3 /uL 0.1-0. 9 normal Not Available [facility] ([facility]) [address] [place], [address], 08/12/2024 08:27:53 08/12/19 25 08/12/2024 CBC WITH DIFFE RENTI AL/PL ATELE T eos (absolute) 0.1 x10e3 /uL 0.0-0. 4 normal Not Available [facility] ([facility]) [address] [facility], [place], [address], 08/12/2024 08:27:53 08/12/19 25 08/12/2024 CBC WITH DIFFE RENTI AL/PL ATELE T baso (absolute) 0.0 x10e3 /uL 0.0-0. 2 normal Not Available [facility] ([facility]) [address] [place], [address], 08/12/2024 08:27:53 08/12/19 25 08/12/2024 CBC WITH DIFFE RENTI AL/PL ATELE T immature granulocytes 0 % not estab. Not Available [facility] ([facility]) [address] [place], [address], 08/12/2024 08:27:53 08/12/19 25 08/12/2024 CBC WITH DIFFE RENTI AL/PL ATELE T immature grans (abs) 0.0 x10e3 /uL 0.0-0. 1 Not Available [facility] ([facility]) [address] [place], [address], 08/12/2024 08:27:53 08/12/19 25 08/12/2024 CBC WITH DIFFE RENTI AL/PL ATELE T NRBC LINOTYPE MACHINIST Not Available [facility] ([facility]) [address] [place], [address], 08/12/2024 08:27:53 08/12/19 25 08/12/2024 CBC WITH DIFFE JANET AL/PL MARY Peralta hematology comments: LINOTYPE MACHINIST Not Available [facility] ([facility]) [address] [facility], [place], [address], 08/12/2024 08:27:53 08/12/19 25 08/12/2024 COMP. METAB OLIC PANEL (14) glucose 157 mg/dL 70-99 above high normal Not Available [facility] ([facility]) [address] [facility], [place], [address], 08/12/2024 08:27:54 08/12/19 25 08/12/2024 COMP. METAB OLIC PANEL (14) BUN 28 mg/dL 8-27 above high normal Not Available [facility] ([facility]) [address] [facility], [place], [address], 08/12/2024 08:27:54 08/12/19 25 08/12/2024 COMP. METAB OLIC PANEL (14) creatinine 1.72 mg/dL 0.76-1 .27 above high normal Not Available [facility] ([facility]) [address] [facility], [place], [address], 08/12/2024 08:27:54 08/12/19 25 08/12/2024 COMP. METAB OLIC PANEL (14) eGFR 41 mL/mi n/1.7 3 >59 below low normal Not Available [facility] ([facility]) [address] [place], [address], 08/12/2024 08:27:54 08/12/19 25 08/12/2024 COMP. METAB OLIC PANEL (14) BUN/creatini ne ratio 16 10-24 normal Not Available [facility] ([facility]) [address] [place], [address], 08/12/2024 08:27:54 08/12/19 25 08/12/2024 COMP. METAB OLIC PANEL (14) sodium 141 mmol/ L 134-14 4 normal Not Available [facility] ([facility]) [address] [place], [address], 08/12/2024 08:27:54 08/12/19 25 08/12/2024 COMP. METAB OLIC PANEL (14) potassium 4.4 mmol/ L 3.5-5. 2 normal Not Available [facility] ([facility]) [address] [place], [address], 08/12/2024 08:27:54 08/12/19 25 08/12/2024 COMP. METAB OLIC PANEL (14) chloride 104 mmol/ L 96-106 normal Not Available [facility] ([facility]) [address] [facility] [place], [address], 08/12/2024 08:27:54 08/12/19 25 08/12/2024 COMP. METAB OLIC PANEL (14) carbon dioxide, total 20 mmol/ L 20-29 normal Not Available [facility] ([facility]) [address] [facility] [place], [address], 08/12/2024 08:27:54 08/12/19 25 08/12/2024 COMP. METAB OLIC PANEL (14) calcium 9.7 mg/dL 8.6-10 .2 normal Not Available [facility] ([facility]) [address] [facility] [place], [address], 08/12/2024 08:27:54 08/12/19 25 08/12/2024 COMP. METAB OLIC PANEL (14) protein, total 7.1 g/dL 6.0-8. 5 normal Not Available [facility] ([facility]) [address] [facility] [place], [address], 08/12/2024 08:27:54 08/12/19 25 08/12/2024 COMP. METAB OLIC PANEL (14) albumin 4.4 g/dL 3.8-4. 8 normal Not Available [facility] ([facility]) [address] [facility] [place], [address], 08/12/2024 08:27:54 08/12/19 25 08/12/2024 COMP. METAB OLIC PANEL (14) globulin, total 2.7 g/dL 1.5-4. 5 Not Available [facility] ([facility]) [address] [place], [address], 08/12/2024 08:27:54 08/12/19 25 08/12/2024 COMP. METAB OLIC PANEL (14) bilirubin, total 0.4 mg/dL 0.0-1. 2 normal Not Available [facility] ([facility]) [address] [facility] [place], [address], 08/12/2024 08:27:54 08/12/19 25 08/12/2024 COMP. METAB OLIC PANEL (14) alkaline phosphatase 84 IU/L 44-121 normal Not Available [facility] ([facility]) [address] [facility] [place], [address], 08/12/2024 08:27:54 08/12/19 25 08/12/2024 COMP. METAB OLIC PANEL (14) AST (SGOT) 18 IU/L 0-40 normal Not Available [facility] ([facility]) [address] [facility] [place], [address], 08/12/2024 08:27:54 08/12/19 25 08/12/2024 COMP. METAB OLIC PANEL (14) ALT (SGPT) 33 IU/L 0-44 normal Not Available [facility] ([facility]) [address] [facility] [place], [address], 08/12/2024 08:27:54 08/12/19 25 08/12/2024 VITAM IN B12 AND FOLAT E vitamin B12 1401 pg/mL 232-12 45 above high normal Not Available [facility] ([facility]) [address] [facility] [place], [address], 08/12/2024 08:27:54 08/12/19 25 08/12/2024 VITAM IN B12 AND FOLAT E folate (folic acid), serum 10.0 NG/mL >3.0 normal A serum folat e mariam ntrat ion of less than 3.1 ng/mL is consi dered to repre sent clini fatoumata defic iency . Not Available [facility] ([facility]) [address] [facility], [place], [address], 08/12/2024 08:27:54 09/17/19 25 09/17/2024 TSH+F REE T4 TSH 7.780 uIU/m L 0.450- 4.500 above high normal Not Available [facility] ([facility]) [address] [place], [address], 09/17/2024 08:20:46 09/17/19 25 09/17/2024 TSH+F REE T4 T4,free(dire ct) 1.31 NG/dL 0.82-1 .77 normal Not Available [facility] ([facility]) [address] [place], [address], 09/17/2024 08:20:46 09/17/19 25 09/17/2024 CBC WITH DIFFE RENTI AL/PL ATELE T WBC 4.7 x10e3 /uL 3.4-10 .8 normal Not Available [facility] ([facility]) [address] [place], [address], 09/17/2024 08:20:47 09/17/19 25 09/17/2024 CBC WITH DIFFE RENTI AL/PL ATELE T RBC 5.16 x10e6 /uL 4.14-5 .80 normal Not Available [facility] ([facility]) [address] [place], [address], 09/17/2024 08:20:47 09/17/19 25 09/17/2024 CBC WITH DIFFE RENTI AL/PL ATELE T hemoglobin 14.4 g/dL 13.0-1 7.7 normal Not Available [facility] ([facility]) [address] [place], [address], 09/17/2024 08:20:47 09/17/19 25 09/17/2024 CBC WITH DIFFE RENTI AL/PL ATELE T hematocrit 47.1 % 37.5-5 1.0 normal Not Available [facility] ([facility]) [address] [place], [address], 09/17/2024 08:20:47 09/17/19 25 09/17/2024 CBC WITH DIFFE RENTI AL/PL ATELE T MCV 91 fL 79-97 normal Not Available [facility] ([facility]) [address] [facility], [place], [address], 09/17/2024 08:20:47 09/17/19 25 09/17/2024 CBC WITH DIFFE RENTI AL/PL ATELE T MCH 27.9 pg 26.6-3 3.0 normal Not Available [facility] ([facility]) [address] [place], [address], 09/17/2024 08:20:47 09/17/19 25 09/17/2024 CBC WITH DIFFE RENTI AL/PL ATELE T MCHC 30.6 g/dL 31.5-3 5.7 below low normal Not Available [facility] ([facility]) [address] [place], [address], 09/17/2024 08:20:47 09/17/19 25 09/17/2024 CBC WITH DIFFE RENTI AL/PL ATELE T RDW 14.7 % 11.6-1 5.4 Not Available [facility] ([facility]) [address] [place], [address], 09/17/2024 08:20:47 09/17/19 25 09/17/2024 CBC WITH DIFFE RENTI AL/PL ATELE T platelets 240 x10e3 /uL 150-45 0 normal Not Available [facility] ([facility]) [address] [facility], [place], [address], 09/17/2024 08:20:47 09/17/19 25 09/17/2024 CBC WITH DIFFE RENTI AL/PL ATELE T neutrophils 63 % not estab. normal Not Available [facility] ([facility]) [address] [facility], [place], [address], 09/17/2024 08:20:47 09/17/19 25 09/17/2024 CBC WITH DIFFE RENTI AL/PL ATELE T lymphs 25 % not estab. normal Not Available [facility] ([facility]) [address] [facility], [place], [address], 09/17/2024 08:20:47 09/17/19 25 09/17/2024 CBC WITH DIFFE RENTI AL/PL ATELE T monocytes 9 % not estab. normal Not Available [facility] ([facility]) [address] [facility], [place], [address], 09/17/2024 08:20:47 09/17/19 25 09/17/2024 CBC WITH DIFFE RENTI AL/PL ATELE T eos 2 % not estab. normal Not Available [facility] ([facility]) [address] [facility], [place], [address], 09/17/2024 08:20:47 09/17/19 25 09/17/2024 CBC WITH DIFFE RENTI AL/PL ATELE T basos 1 % not estab. normal Not Available [facility] ([facility]) [address] [facility], [place], [address], 09/17/2024 08:20:47 09/17/19 25 09/17/2024 CBC WITH DIFFE RENTI AL/PL ATELE T immature cells LINOTYPE MACHINIST Not Available [facility] ([facility]) [address] [place], [address], 09/17/2024 08:20:47 09/17/19 25 09/17/2024 CBC WITH DIFFE RENTI AL/PL ATELE T neutrophils (absolute) 3.0 x10e3 /uL 1.4-7. 0 normal Not Available [facility] ([facility]) [address] [place], [address], 09/17/2024 08:20:47 09/17/19 25 09/17/2024 CBC WITH DIFFE RENTI AL/PL ATELE T lymphs (absolute) 1.2 x10e3 /uL 0.7-3. 1 normal Not Available [facility] ([facility]) [address] [place], [address], 09/17/2024 08:20:47 09/17/19 25 09/17/2024 CBC WITH DIFFE RENTI AL/PL ATELE T monocytes(ab solute) 0.4 x10e3 /uL 0.1-0. 9 normal Not Available [facility] ([facility]) [address] [place], [address], 09/17/2024 08:20:47 09/17/19 25 09/17/2024 CBC WITH DIFFE RENTI AL/PL ATELE T eos (absolute) 0.1 x10e3 /uL 0.0-0. 4 normal Not Available [facility] ([facility]) [address] [place], [address], 09/17/2024 08:20:47 09/17/19 25 09/17/2024 CBC WITH DIFFE RENTI AL/PL ATELE T baso (absolute) 0.0 x10e3 /uL 0.0-0. 2 normal Not Available [facility] ([facility]) [address] [place], [address], 09/17/2024 08:20:47 09/17/19 25 09/17/2024 CBC WITH DIFFE RENTI AL/PL ATELE T immature granulocytes 0 % not estab. Not Available [facility] ([facility]) [address] [facility], [place], [address], 09/17/2024 08:20:47 09/17/19 25 09/17/2024 CBC WITH DIFFE RENTI AL/PL ATELE T immature grans (abs) 0.0 x10e3 /uL 0.0-0. 1 Not Available [facility] ([facility]) [address] [facility], [place], [address], 09/17/2024 08:20:47 09/17/19 25 09/17/2024 CBC WITH DIFFE RENTI AL/PL ATELE T NRBC LINOTYPE MACHINIST Not Available [facility] ([facility]) [address] [facility], [place], [address], 09/17/2024 08:20:47 09/17/19 25 09/17/2024 CBC WITH DIFFE RENTI AL/PL ATELE T hematology comments: LINOTYPE MACHINIST Not Available [facility] ([facility]) [address] [facility], [place], [address], 09/17/2024 08:20:47 09/17/19 25 09/17/2024 COMP. METAB OLIC PANEL (14) glucose 127 mg/dL 70-99 above high normal Not Available [facility] ([facility]) [address] [place], [address], 09/17/2024 08:20:47 09/17/19 25 09/17/2024 COMP. METAB OLIC PANEL (14) BUN 21 mg/dL 8-27 normal Not Available [facility] ([facility]) [address] [facility] [place], [address], 09/17/2024 08:20:47 09/17/19 25 09/17/2024 COMP. METAB OLIC PANEL (14) creatinine 1.39 mg/dL 0.76-1 .27 above high normal Not Available [facility] ([facility]) [address] [place], [address], 09/17/2024 08:20:47 09/17/19 25 09/17/2024 COMP. METAB OLIC PANEL (14) eGFR 53 mL/mi n/1.7 3 >59 below low normal Not Available [facility] ([facility]) [address] [place], [address], 09/17/2024 08:20:47 09/17/19 25 09/17/2024 COMP. METAB OLIC PANEL (14) BUN/creatini ne ratio 15 10-24 normal Not Available [facility] ([facility]) [address] [facility] [place], [address], 09/17/2024 08:20:47 09/17/19 25 09/17/2024 COMP. METAB OLIC PANEL (14) sodium 139 mmol/ L 134-14 4 normal Not Available [facility] ([facility]) [address] [facility] [place], [address], 09/17/2024 08:20:47 09/17/19 25 09/17/2024 COMP. METAB OLIC PANEL (14) potassium 4.2 mmol/ L 3.5-5. 2 normal Not Available [facility] ([facility]) [address] [facility] [place], [address], 09/17/2024 08:20:47 09/17/19 25 09/17/2024 COMP. METAB OLIC PANEL (14) chloride 103 mmol/ L 96-106 normal Not Available [facility] Lab) [address] [facility] [place], [address], 09/17/2024 08:20:47 09/17/19 25 09/17/2024 COMP. METAB OLIC PANEL (14) carbon dioxide, total 21 mmol/ L 20-29 normal Not Available [facility] ([facility]) [address] [facility] [place], [address], 09/17/2024 08:20:47 09/17/19 25 09/17/2024 COMP. METAB OLIC PANEL (14) calcium 8.7 mg/dL 8.6-10 .2 normal Not Available [facility] ([facility]) [address] [facility] [place], [address], 09/17/2024 08:20:47 09/17/19 25 09/17/2024 COMP. METAB OLIC PANEL (14) protein, total 6.7 g/dL 6.0-8. 5 normal Not Available [facility] ([facility]) [address] [facility] [place], [address], 09/17/2024 08:20:47 09/17/19 25 09/17/2024 COMP. METAB OLIC PANEL (14) albumin 4.3 g/dL 3.8-4. 8 normal Not Available [facility] ([facility]) [address] [facility] [place], [address], 09/17/2024 08:20:47 09/17/19 25 09/17/2024 COMP. METAB OLIC PANEL (14) globulin, total 2.4 g/dL 1.5-4. 5 Not Available [facility] ([facility]) [address] [facility] [place], [address], 09/17/2024 08:20:47 09/17/19 25 09/17/2024 COMP. METAB OLIC PANEL (14) bilirubin, total 0.4 mg/dL 0.0-1. 2 normal Not Available [facility] ([facility]) [address] [facility] [place], [address], 09/17/2024 08:20:47 09/17/19 25 09/17/2024 COMP. METAB OLIC PANEL (14) alkaline phosphatase 80 IU/L 44-121 normal Not Available [facility] ([facility]) [address] [facility] [place], [address], 09/17/2024 08:20:47 09/17/19 25 09/17/2024 COMP. METAB OLIC PANEL (14) AST (SGOT) 14 IU/L 0-40 normal Not Available [facility] ([facility]) [address] [place], [address], 09/17/2024 08:20:47 09/17/19 25 09/17/2024 COMP. METAB OLIC PANEL (14) ALT (SGPT) 28 IU/L 0-44 normal Not Available [facility] ([facility]) [address] [place], [address], 09/17/2024 08:20:47 09/17/19 25 09/17/2024 LIPID PANEL cholesterol, total 160 mg/dL 100-19 9 normal Not Available [facility] ([facility]) [address] [place], [address], 09/17/2024 08:20:48 09/17/19 25 09/17/2024 LIPID PANEL triglyceride s 160 mg/dL 0-149 above high normal Not Available [facility] ([facility]) [address] [place], [address], 09/17/2024 08:20:48 09/17/19 25 09/17/2024 LIPID PANEL HDL cholesterol 30 mg/dL >39 below low normal Not Available [facility] ([facility]) [address] [place], [address], 09/17/2024 08:20:48 09/17/19 25 09/17/2024 LIPID PANEL VLDL cholesterol fatoumata 28 mg/dL 5-40 Not Available [facility] ([facility]) [address] [place], [address], 09/17/2024 08:20:48 09/17/19 25 09/17/2024 LIPID PANEL LDL chol calc ([facility]) 102 mg/dL 0-99 above high normal Not Available [facility] (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) [address] [facility], [place], [address], 09/17/2024 08:20:48 09/17/19 25 09/17/2024 HEMOG LOBIN A1C hemoglobin A1C 6.9 % 4.8-5. 6 above high normal Predi abete s: 5.7 - 6.4 Diabe marie: >6.4 Glyce john contr ol for adult s with diabe marie: <7.0 Not Available [facility] ([facility]) [address] [place], [address], 09/17/2024 08:20:49 09/17/19 25 09/17/2024 VITAM IN B12 vitamin B12 902 pg/mL 232-12 45 normal Not Available [facility] ([facility]) [address] [facility], [place], [address], 09/17/2024 08:20:49 09/17/19 25 09/16/2024 micro album in/cr eatin ine, mass ratio , urine Microalbumin 80mg Not Available Abeba de la rosa [address], [address], 09/16/2024 09:53:29 09/17/19 25 09/16/2024 micro album in/cr eatin ine, mass ratio , urine Creatinine 300mg Not Available Claudia oropeza [address], [address], 09/16/2024 09:53:29 09/17/19 25 09/16/2024 micro album in/cr eatin ine, mass ratio , urine Ratio 30-300 mg abnorm al Not Available [place] [address], [address], 09/16/2024 09:53:29 10/21/1910/21/2024 TSH+F REE T4 TSH 5.890 uIU/m L 0.450- 4.500 above high normal Not Available [facility] ([facility]) [address] [place], [address], 10/21/2024 08:21:13 10/21/19 25 10/21/2024 TSH+F REE T4 T4,free(dire ct) 1.41 NG/dL 0.82-1 .77 normal Not Available [facility] ([facility]) [address] [place], [address], 10/21/2024 08:21:13 10/21/1910/21/2024 BASIC METAB OLIC PANEL (8) glucose 101 mg/dL 70-99 above high normal Not Available [facility] ([facility]) [address] [place], [address], 10/21/2024 08:21:13 10/21/1910/21/2024 BASIC METAB OLIC PANEL (8) BUN 17 mg/dL 8-27 normal Not Available [facility] ([facility]) [address] [place], [address], 10/21/2024 08:21:13 10/21/1910/21/2024 BASIC METAB OLIC PANEL (8) creatinine 1.62 mg/dL 0.76-1 .27 above high normal Not Available [facility] ([facility]) [address] [place], [address], 10/21/2024 08:21:13 10/21/1910/21/2024 BASIC METAB OLIC PANEL (8) eGFR 44 mL/mi n/1.7 3 >59 below low normal Not Available [facility] ([facility]) [address] [place], [address], 10/21/2024 08:21:13 10/21/1910/21/2024 BASIC METAB OLIC PANEL (8) BUN/creatini ne ratio 10 10-24 normal Not Available [facility] ([facility]) [address] [place], [address], 10/21/2024 08:21:13 10/21/19 25 10/21/2024 BASIC METAB OLIC PANEL (8) sodium 139 mmol/ L 134-14 4 normal Not Available [facility] ([facility]) [address] [place], [address], 10/21/2024 08:21:13 10/21/19 25 10/21/2024 BASIC METAB OLIC PANEL (8) potassium 4.1 mmol/ L 3.5-5. 2 normal Not Available [facility] ([facility]) [address] [place], [address], 10/21/2024 08:21:13 10/21/19 25 10/21/2024 BASIC METAB OLIC PANEL (8) chloride 101 mmol/ L 96-106 normal Not Available [facility] ([facility]) [address] [place], [address], 10/21/2024 08:21:13 10/21/19 25 10/21/2024 BASIC METAB OLIC PANEL (8) carbon dioxide, total 22 mmol/ L 20-29 normal Not Available [facility] ([facility]) [address] [place], [address], 10/21/2024 08:21:13 10/21/19 25 10/21/2024 BASIC METAB OLIC PANEL (8) calcium 9.4 mg/dL 8.6-10 .2 normal Not Available [facility] ([facility]) [address] [place], [address], 10/21/2024 08:21:13 10/21/19 25 10/20/2024 PSA TOTAL (REFL EX TO FREE) reflex criteria Commen t The perce nt free PSA is perfo rmed on a refle x basis only when the total PSA is betwe en 4.0 and 10.0 ng/mL . Not Available [facility] ([facility]) [address] [facility], [place], [address], 10/21/2024 08:21:14 10/21/19 25 10/21/2024 PSA TOTAL [...] kits canno t be used inter white eamerari . Resul ts canno t be inter prete d as absol pokagon evide nce of the prese nce or absen ce of michaela cruz se. Not Available [facility] ([facility]) [address] [facility], [place], [address], 10/21/2024 08:21:14 11/12/1911/11/2024 PSA TOTAL (REFL EX TO FREE) reflex criteria Commen t The perce nt free PSA is perfo rmed on a refle x basis only when the total PSA is betwe en 4.0 and 10.0 ng/mL . Not Available [facility] ([facility]) [address] [facility], [place], [address], 11/12/2024 06:20:23 11/12/1911/12/2024 PSA TOTAL (REFL EX TO FREE) prostate specific Ag 8.6 NG/mL 0.0-4. 0 above high normal Jory ECLIA metho dolog y. Accor john to the Ameri can [employer] g[employer] [...] t be inter prete d as absol pokagon evide nce of the prese nce or absen ce of [facility] se. Not Available [facility] ([facility]) [address] [facility], [place], [address], 11/12/2024 06:20:23 11/12/19 25 11/12/2024 PSA TOTAL (REFL EX TO FREE) PSA, free 2.34 NG/mL n/a Jory ECLIA metho dolog y. Not Available [facility] ([facility]) [address] [facility], [place], [address], 11/12/2024 06:20:23 11/12/1911/12/2024 PSA TOTAL (REFL EX TO FREE) % free PSA 27.2 % The table below lists the proba bilit y of prost ate cance r for men with non-s uspic ious SUBHASH resul ts and total PSA betwe en 4 and 10 ng/mL , by patie nt age (Kadi kumar et al, REGIS 1998, 279:1 542). % Free PSA 50-64 yr 65-75 yr 0.00- 10.00 % 56% 55% 10.01 -15.0 0% 24% 35% 15.01 -20.0 0% 17% 23% 20.01 -25.0 0% 10% 20% >25.0 0% 5% 9% Benita caruso note: Rupal mercado did not make speci fic recom menda tions regar ding the use of perce nt free PSA for any other popul ation of men. Not Available [facility] ([facility]) [address] [facility], [place], [address], 11/12/2024 06:20:23 06/05/19 25 06/04/2024 XR, chest , 2 view No observ ation record ed. [address], [place], [address], 06/09/2024 09:33:33 06/05/19 25 06/04/2024 CT, angio gram, chest , w/wo contr ast No observ ation record ed. [address], [place], [address], 06/09/2024 08:50:47 06/06/19 25 06/04/2024 elect rocar diogr am No observ ation record ed. [address], [place], [address], 06/09/2024 08:51:37 07/24/19 25 07/23/2024 elect rocar diogr am No observ ation record ed. [address], [place], [address], 07/28/2024 14:19:26 07/24/19 25 07/23/2024 XR, chest , 2 view No observ ation record ed. [address], [place], [address], 07/28/2024 14:19:38 08/04/19 XR, chest , 2 view No observ ation record ed. [email or web address] Not Available 05/2024 11:35:11 08/10/19 25 07/30/2024 stres s echoc ardio gram with doppl er color flow (PROC ) No observ ation record ed. [address], [place], [address], 08/10/2024 11:27:19 10/01/20 25 12/01/2024 XR, chest , 2 view No observ ation record ed. cayla [facility] [address], [place], [address], 12/02/2024 10:00:39 Result Notes None recorded. Problems Name Problem SNOMED Code Status Onset Date Resolution Date Notes Provider Name and Address Organization Details Recorded Time Diabetes mellitus 48201343 Active 2024 Evelyn Ramirez PA-C [address], [place], [address] , [place] - [facility] 08:12:22 Hypertensive disorder 79701571 Active 2024 Evelyn Ramirez PA-C [address], [place], [address] , [place] - [facility] 5 08:12:30 Hyperlipidemia 35158569 Active 2024 Evelyn Ramirez PA-C [address], [place], [address] , [place] - [facility] 5 08:12:37 Atrial fibrillation 05374332 Active 2024 Evelyn Ramirez PA-C [address], [place], [address] , [place] - [facility] 5 08:12:44 Obstructive sleep apnea syndrome 33278853 Active 2024 Evelyn Ramirez PA-C [address], [place], [address] , [place] - [facility] 5 08:12:56 Hypothyroidism 83048719 Active 2024 Evelyn Ramirez PA-C [address], [place], [address] , [place] - [facility] 5 09:54:09 Problem Notes None recorded. Procedures Surgical History Date Name Laterality Status Provider Name and Address Organization Details Recorded Time 10/21/19 25 Medication Reconcilliation completed Eduar Deluna [place] - [facility] 10/20/2024 13:33:02 09/17/19 Advance Care Planning completed Eduar Deluna [place] - [facility] 09/16/2024 07:17:12 09/17/19 25 Functional [...] Name and Address Organization Details Recorded Time 640610 Bactrim medicatio n muscle cramps Not available high 09/16/2023 74508 9 RxNorm MARJAN Sevilla - [facility] 14:10:11 978531 Product containin g 3-hydroxy -3-methyl glutaryl- coenzyme A reductase inhibitor (product) medicatio n muscle cramps Not available high 09/16/2023 90996 009 SNOMED Eduar Deluna null, [place] - [facility] 4 14:10:31 936904 nifedipin e medicatio n lighthead edness moderate high 10/20/2024 7417 RxNorm Eduar Deluna [place], [place] - [facility] 5 13:35:58 Medications Name Sig Start Date Stop [...] t Available Vitals Date Recorded Body height Respiratory rate Pain severity - 0-10 verbal numeric rating [Score] - Reported Body mass index (BMI) Body weight Body temperature Heart rate Oxygen saturation Oxygen saturation in Arterial blood by Pulse oximetry Systolic And Diastolic Provider Name and Address Organization Details Last Updated DateTime 5 185.42 cm 14 /min 0 39.9 kg/m2 251408 g 98.3 [degF] 78 /min 94 % 94 % 144/78 mm[Hg] Eduar Deluna [facility] 5 14:37:04 Date Recorded Body height Respiratory rate Pain severity - 0-10 verbal numeric rating [Score] - Reported Body mass index (BMI) Body weight Body temperature Oxygen saturation Oxygen saturation in Arterial blood by Pulse oximetry Heart rate Systolic And Diastolic Provider Name and Address Organization Details Last Updated DateTime 5 185.42 cm 14 /min 0 39.4 kg/m2 832264. 12 g 98.4 [degF] 96 % 96 % 98 /min 118/82 mm[Hg] Eduar Deluna [facility] 5 15:26:16 Date Recorded Body height Body mass index (BMI) Body weight Respiratory rate Pain severity - 0-10 verbal numeric rating [Score] - Reported Oxygen saturation Oxygen saturation in Arterial blood by Pulse oximetry Body temperature Heart rate Systolic And Diastolic Provider Name and Address Organization Details Last Updated DateTime 5 185.42 cm 39 kg/m2 650923. 15 g 14 /min 0 97 % 97 % 97.6 [degF] 60 /min 124/82 mm[Hg] Eduar PHILLIP [facility] 5 13:32:45 Date Recorded Body height Respiratory rate Pain severity - 0-10 verbal numeric rating [Score] - Reported Body mass index (BMI) Body weight Body temperature Oxygen saturation Oxygen saturation in Arterial blood by Pulse oximetry Heart rate Systolic And Diastolic Provider Name and Address Organization Details Last Updated DateTime 5 185.42 cm 14 /min 0 39.1 kg/m2 473589. 34 g 97.8 [degF] 95 % 95 % 79 /min 144/78 mm[Hg] Eduar PHILLIP - [facility] 09:36:48 Date Recorded Body height Body mass index (BMI) Body weight Body temperature Pain severity - 0-10 verbal numeric rating [Score] - Reported Respiratory rate Oxygen saturation Oxygen saturation in Arterial blood by Pulse oximetry Heart rate Systolic And Diastolic Provider Name and Address Organization Details Last Updated DateTime 185.42 cm 40 kg/m2 997625. 49 g 97.5 [degF] 0 14 /min 95 % 95 % 75 /min 132/88 mm[Hg] Eduar PHILLIP - [facility] 13:37:23 Social History Question Answer Notes LastModified by Organizat ion Details LastModified Time Tobacco Smoking Status Never Smoker Eduar león [place] - [facility] 09/16/2023 14:17:05 Do You Have An Advance Directive? No [email or web address] Information n ot available 10/20/2024 Are You Blind Or Do You Have Difficulty Seeing? No [email or web address] Information n ot available 09/16/2023 Is Blood Transfusion Acceptable In An Emergency? Yes Information not available 10/20/2024 What Is Your Level Of Caffeine Consumption? Moderate [email or web address] Information not available 09/16/2023 How Much Tobacco Do You Chew? None [email or web address] Information not available 10/20/2024 In The 14 Days Before Symptom Onset, Have You Had Close Contact With A Laboratory-confirm ed COVID-19 While That Case Was Ill? No [email or web address] Information n ot available 09/16/2023 In The 14 Days Before Symptom Onset, Have You Had Close Contact With A Person Who Is Under Investigation For COVID-19 While That Person Was Ill? No [email or web address] Information not available 09/16/2023 Have You Been To An Area Known To Be High Risk For COVID-19? No [email or web address] Information not available 09/16/2023 Are You Deaf Or Do You Have Serious Difficulty Hearing? No [email or web address] Information not available 09/16/2023 Have You Processed Blood Or Body Fluids From An Ebola Virus Disease Patient Without Appropriate PPE? No [email or web address] Information not available 09/16/2023 Do You Reside In Or Have You Traveled To An Area Where Ebola Virus Transmission Is Active? No [email or web address] Information not available 09/16/2023 What Is The Highest Grade Or Level Of School You Have Completed Or The Highest Degree You Have Received? [place]36298-8 [email or web address] Information not available 10/20/2024 Have You Recently Or Are You Planning To Travel To An Area With Zika Virus? No [email or web address] Information not available 09/16/2023 What Was The Date Of Your Most Recent Tobacco Screening? 10/20/2024 [email or web address] Information not available 10/20/2024 Do You Use Protection Against STDs? No [email or web address] Information not available 10/20/2024 What Is Your Relationship Status? Information not available 10/20/2024 Do You Use Your Seat Belt Or Car Seat Routinely? No [email or web address] Information not available 10/20/2024 Are You Sexually Active? Yes [email or web address] Information not available 10/20/2024 Do You Have Smoke And Carbon Monoxide Detectors In Your Home? Yes [email or web address] Information not available 10/20/2024 Are You Passively Exposed To Smoke? No [email or web address] Information no t available 10/20/2024 Do You Use Sunscreen Routinely? No Information not available 10/20/2024 Has Tobacco Cessation Counseling Been Provided? Yes [email or web address] Information not available 09/16/2023 On What Date Was Tobacco Cessation Counseling Provided? 10/20/2024 [email or web address] Information not available 10/20/2024 Do You Have Difficulty Walking Or Climbing Stairs? No [email or web address] Information not available 09/16/2023 Sex: Male Functional Status Question Answer Note LastModified by Organizat ion Details LastModified Time Do you or have you ever used smokeless tobacco? Never used smokeless tobacco [email or web address] Information not available 10/20/2024 Are you currently employed? Yes [email or web address] Information not available 10/20/2024 Do you have transportation difficulties? No [email or web address] Information not available 09/16/2023 Are you able to care for yourself independently? Yes [email or web address] Information not available 09/16/2023 Do you have difficulty dressing, bathing, grooming, or toileting? No [email or web address] Information not available 09/16/2023 Do you or have you ever used e-cigarettes or vape? Never used electronic cigarettes [email or web address] Information not available 10/20/2024 What is your exercise level? Occasional [email or web address] Information not available 10/20/2024 Do you use any illicit or recreational drugs? No [email or web address] Information not available 09/16/2023 Do you or have you ever used any other forms of tobacco or nicotine? No [email or web address] Information not available 09/16/2023 What is your level of alcohol consumption? None [email or web address] Information not available 09/16/2023 Are you able to walk independently without assistance or assistive devices? YESWOREST [email or web address] Information not available 09/16/2023 Do you have difficulty doing errands alone? No [email or web address] Information not available 09/16/2023 What is your occupation? [employer] [email or web address] Information not available 10/20/2024 Mental Status Question Answer Note LastModified by Organizat ion Details LastModified Time Do you feel stressed (tense, restless, nervous, or anxious, or unable to sleep at night)? [id number] [email or web address] Information not available 10/20/2024 Do you have difficulty concentrating, remembering or making decisions? No [email or web address] Information no t available 09/16/2023 Family History Relationship Description Onset Age of this Age Resolved Age Notes LastModified by Organization Details LastModified Time Father No current problems or disability [email or web address] Not available 14:16:14 Mother No current problems or disability [email or web address] Not available 14:16:14 Medical History Condition Response Diabetes Y Heart Problems Y Muscle, Joint, or Bone Problems Y Atrial Fibrillation Y Vision or Eye Problems Y Arthritis Y Hernia Y Erectile Dysfunction Y Cancer Y Kidney or Bladder Problems Y Hypercholesterolemia Y Sleep Apnea Y Heart Disease Y Hypertension Y Immunizations Vaccine Type Date Status Note Provider Daryl caruso and Address Organization Details Recorded Time Tdap 01/06/2013 completed MARJAN Sevilla - [facility] 09/18/2023 15:49:14 zoster live 01/06/2013 completed MARJAN Sevilla - [facility] 09/18/2023 15:49:14 Past Encounters Encounter ID Performer Location Encounter Start Date Encounter Closed Date Diagnosis/Indication Diagnosis SNOMED-CT Code Diagnosis ICD10 Code Diagnosis IMO Codes Diagnosis Note [id number] AMBER Wilkins [address] [address] 09/16/2023 13:27:06 09/16/2023 16:23:13 Adult health examination 856245098 Z00.00 Depression screening 171 356236 Z13.31 A depression screening was completed via a standardiz ed screening tool. 5 minutes were spent discussing depression screening results and risk factors. scored 0. Examinatio n of blood pressure 599365558 Z01.30 stable. Diet education 13480486 Z71.3 went over to eat healthy. Counseling 468575647 Z71 .82 Exercise counseling . Patient encouraged to exercise 30 minutes 5 days a week. At [facility] ed risk for falls 177791832 Z91.81 STEADI FAST screening score of __3___.ayanna t over fall risks with patient. Advance care planning 71 2469978 Z71.89 Finding of body mass index 734157616 Z68.37 37.6 Essential hypertension 80466520 I10 stable. Diabetes mellitus 969966 09 E11.9 went over to check feet daily. eye exam- couple months ago with Dr Hebert. He has had cataract surgery.bs at home are not checked. Screening for malignant neoplasm of colon 939682705 Z12.11 Screening for malignant neoplasm of prostate 949321159 Z12.5 Taking med ication for chronic disease 8362288426 01351 Z79.899 chronic conditions are stable. gave refills. Obstructiv e sleep apnea syndrome 98664265 G47.33 Atrial fibrillation [address] Elias. History of placement of stent for coronary artery disease 302025848 Z95.5 pt has three stents. Vitamin D deficiency 347 61586 E55.9 [id number] AMBER Wilkins [facility] [address] [place] [address] 09/18/2023 15:35:28 09/18/2023 16:13:40 Long-term drug therapy 741158225 Z79.899 Prostate s pecific antigen above reference range 569526560 R97.20 psa 7.4 we will fax to urology he sees urology. I sent for pt. Diabetes mellitus 861002 E11.9 went over to check feet daily. eye exam- couple months ago with Dr Hebert. He has had cataract surgery.bs at home are not checked.A1 c is 6.5 this is great. Serum crea tinine above reference range 309938133 R79.89 push water. [id number] Evelyn Ramirez PA-C [address] [address] 02/09/2024 15:01:54 02/09/2024 15:41:51 Pruritic rash 13153869 L28.2 went over if BS go over 250 stop steriod. went over to take benadryl. stop voltaren cream. Long-term drug therapy 741378782 Z79.899 chronic conditions are stable. [id number] AMBER Wilkins [address] [address] 02/12/2024 14:00:33 02/12/2024 14:54:05 Pruritic rash 69049496 L28.2 went over if BS go over 250 stop steriod. went over to take benadryl. stop voltaren cream. [id number] Evelyn Ramirez PA-C [address] [address] 03/18/2024 12:48:59 03/18/2024 13:25:28 Atrial fibrillation 86027855 I48.[address] Elias. pt is on amiodarone and xarelto. Diabetes mellitus E11.9 went over to check feet daily. eye exam- couple months ago with Dr Hebert. He has had cataract surgery. he has seen Dr Pena as well.bs at home are not checked. Hyperlipidemia 92951334 E78.5 we will get lipids in office. Hypertensive disorder 38 906781 I10 stable. we are going to change to losartan due to cough stop lisinopril . Obstructiv e sleep apnea syndrome 61635754 G47.33 Pt uses cpap nightly and it helps. He benefits from using. Screening for malignant neoplasm of colon 836176775 Z12.11 Pt states he has one and did cologuard a year ago. History of placement of stent for coronary artery disease 943201968 Z95.5 pt has had three stents. Prostate s pecific antigen above reference range 459814099 R97.20 psa 7.4 we will fax to urology he sees urology. I sent for pt. Malignant neoplasm of prostate 585456747 C61 pt saw urology. last note in chart 12/24. they are monitoring this. Body mass index 30+ - obesity 609628983 Z68.39 39.1 Obesity 175417125 E66.9 Long-term drug therapy 745347193 Z79.899 chronic conditions are stable. Taking med ication for chronic disease 1940999330 06828 Z79.899 chronic conditions are stable. gave refills. [id number] AMBER Wilkins [address] [address] 03/23/2024 14:22:48 03/23/2024 14:45:14 Long-term drug therapy 995023679 Z79.899 chronic conditions are stable. Prostate s pecific antigen above reference range 272690153 R97.20 psa 7.4 we will fax to urology he sees urology. I sent for pt. Hyperlipidemia 69736584 E78.5 went over to monitor diet. went over to get fish oil bid. Hypertensive disorder 38 199751 I10 stable. we are going to change to losartan due to cough stop lisinopril . [id number] AMBER Wilkins [address] [address] 04/19/2024 14:24:55 04/19/2024 14:48:59 Long-term drug therapy 713958234 Z79.899 chronic conditions are stable. Atrial fibrillation [address] Elias. pt is on amiodarone and xarelto. History of placement of stent for coronary artery disease 680859908 Z95.5 pt has had three stents. Diabetes mellitus 730306 09 E11.9 went over to check feet daily. eye exam- couple months ago with Dr Hebert. He has had cataract surgery. he has seen Dr Pena as well.bs at home are not checked. Hypertensive disorder 38 609857 I10 stable. we are going to change to losartan due to cough stop lisinopril . Vitamin D deficiency 347 10753 E55.9 [id number] AMBER Wilkins [facility] [address] [place] [address] 08/02/2024 15:12:13 08/02/2024 16:05:49 Pneumonia 896152700 J18.9 [id number] finish antibiotic s. History of myocardial infarction 303491110 I25.2 027905 He is seeing Dr Elias. Dr Raman did stents. History of placement of stent for coronary artery disease 231098634 Z95.5 293676 He had 6 stents. Congestive heart failure 49571767 I50.9 [id number] pt had echo two days ago at [place] and has holter monitor on now. Long-term current use of drug therapy 716307709 Z79.031 1760571 chronic conditions are stable. [id number] Evelyn Ramirez PA-C [place] [facility] [address] [place] [address] 08/11/2024 13:10:31 08/11/2024 14:19:14 Pneumonia 244831917 J18.9 [id number] finish antibiotic s. new xray resolution of pneumonia. History of myocardial infarction 089372592 I25.2 [address] He is seeing Dr Elias. Dr Raman did stents. History of placement of stent for coronary artery disease 796256653 Z95.5 900970 He had 6 stents. Congestive heart failure 73779109 I50.9 [id number] pt had echo two days ago at [place] and has holter monitor on now. He sent in today. Long-term current use of drug therapy 014967802 Z79.620 1328177 chronic conditions are stable. Fatigue 07893733 R53.83 5685121 Skin lesion 49035931 L98 .9 98287 we will set pt up when he would like to have removed. [id number] Evelyn Ramirez PA-C [address] [address] 09/16/2024 09:31:26 09/16/2024 10:06:29 Adult health examination 147407666 Z00.00 Depression screening 171 200378 Z13.31 A depression screening was completed via a standardiz ed screening tool. 5 minutes were spent discussing depression screening results and risk factors. scored 0. Examinatio n of blood pressure 363570921 Z01.30 stable. Diet education 71135236 Z71.3 went over to eat healthy. Counseling 825134618 Z71 .82 Exercise counseling . Patient encouraged to exercise 30 minutes 5 days a week. At [facility] ed risk for falls 158420514 Z91.81 STEADI FAST screening score of __5___. went over fall risks with patient. He has drop foot so he has to take care and his time. Advance care planning 71 8238423 Z71.89 Atrial fibrillation 4943 6004 I48.91 pt is on xarelto, stable per pt. Pt sees Dr Elias. Diabetes mellitus 660358 09 E11.9 went over to check feet daily. BS at home are not checked. Hyperlipidemia 74751720 E78.5 we will get lipids in office. Hypertensive disorder 38 255118 I10 stable. we are going to change to losartan due to cough stop lisinopril . Obstructiv e sleep apnea syndrome 48182856 G47.33 Pt uses cpap nightly and it helps. He benefits from using. Screening for malignant neoplasm of colon 291402735 Z12.11 756848 Pt states he has one and did cologuard about [address] phillips. Prostate s pecific antigen above reference range 161522595 R97.20 35645 psa 7.4 on 03/27 we will fax to urology he sees urology. I sent for pt. pt does not want drawn today he has apt with urology in 2024. he will do then. Severe obesity 951425452 1 9104 E66.812 E66.01 Z68.39 [id number] Taking med ication for chronic disease 3404907254 11262 Z79.899 chronic conditions are stable. gave refills. Hypothyroidism 54777075 E03.8 4433595 Serum arvind min B12 above reference range 3099441319 R79.89 69392831 [id number] Evelyn Ramirez PA-C [address] [address] 10/20/2024 13:22:18 10/20/2024 14:37:55 Essential hypertension 75046275 I10 72962 he is not to take nifedipine . BP was ok in office. he has f/u in two weeks. pt has lab order for bmp and tsh Prostate s pecific antigen measurement 80104777 Z12.5 137691 Thyroid ho rmone tests outside reference range 915102628 R79.89 751267 order for tsh is in lab we will draw today. Obstructiv e sleep apnea syndrome 99294233 G47.33 8968788 Pt uses cpap nightly and it helps. He benefits from using. Health Concerns Section Related Observation LastModified by Organization Detai ls LastModified Time None Recorded Concern Status LastModified by Organization Details LastModified Time None Recorded Advance Directives Directive N: Payers Insurance Date Sequence Insurance Name Policy Number Policy Pearson Covered Member ID Pearson Member ID Guarantor Name 10/17/2024 1 [place] Marco Antonio Awad [id number] Marco Antonio Awad 09/16/2023 1 [place]MEDICARE [place]PPLE[place]) [id number] Marco Antonio Awad [id number] Marco Antonio Padillaton 09/16/2023 2 [place] Marco Antonio Awad [id number] Marco Antonio Awad 10/17/2024 [employer] NATIONAL [place] [facility] (MEDICARE) Marco Antonio Awad [id number] Marco Antonio Awad 08/11/2024 2 [place] [id number] Marco Antonio Awad [id number] Marco Antonio Padillaton 09/07/2024 2 UNSPECIFIED REMIT PAYOR Marco Antonio Awad 09/29/2024 2 UNSPECIFIED REMIT PAYOR Marco Antonio Awad Notes Date Note Type Note Provider Name and Address Organization Details Recorded Time 04/19/2024 text/html Patient is here for follow up on elevated blood pressure and elevated blood glucose. BS at home have been 144-160. Pt started januvia 50 mg. This is coming down.BP at home has not been checked per pt. Pt needs refills on meds. Evelyn Ramirez PA-C [address], [place], [address], [facility] - [facility] 04/19/2024 14:47:58 08/02/2024 text/html Emergency Depart ment Follow-Up RecordReported by Patient Patient went to hospital at [place] for heart attack by ambulance. He was sent home. The following Friday he went to hospital again. He took nitro. He went to [facility]. He had xrays and Ct scan and BW which stated heart attack. He was admitted and got 6 stents. After he was released he went back for similar symptoms. He was told he has heart failure and fliud build up. He was admitted again. He was given antibiotics and lasix. He is still on oral antibiotics. He has a slight cough that is going away. No fever. No N/V. Chest pain is gone. He f/u with cards already and again in 2 weeks. He has holter monitor on. He is on lasix now. Evelyn Ramirez PA-C [address], [place], [address], [facility] - [facility] 08/02/2024 16:04:02 08/11/2024 text/html patient is here to follow up from pneumonia and congestive heart failure. Patient has finished antibiotics. Patient state she is feeling better just tired. Patient f/u with cards from heart attack next week. No chest pain. SOB is getting better. no new fevers. No bruising at cath site. all is healing well. he has finished antibiotics. Evelyn Ramirez PA-C [address], [place], [address], [facility] - [facility] 08/11/2024 14:10:10 09/16/2024 text/html Medicare Annual Wellness VisitReported by PatientSocial/Behavio ral HistoryFor diet and nutrition, patient reportshealthy diet. For fracture risk, patient reportsno history of fractures,no recent explained fracture,no sudden unexplained fractures, andno previous musculoskeletal injuries. For physical activity, patient reportsexercises on a regular basis,recent increase in physical activity, andgood physical condition.Mental Status:For depression risk, patient reportsnever feels sad, empty, or tearful,no loss of interest in activities,no significant changes in weight,no sleep disturbances or insomnia,no agitation,no loss of energy,no feelings of worthlessness or guilt,no thoughts of suicide,no history of depression, andno history of mood disorders. For orientation, patient reportsno disorientation to time,no disorientation to date, andno disorientation to place. For concentration and memory, patient reportsno decreased concentrating ability,no memory lapses or loss, anddoes not forget words. For speech/motor difficulties, patient reportsno speech difficulties,no difficulty expressing formulated concepts,no difficulty with fine manipulative tasks,no difficulty writing/copying,no slowed reaction time, anddoes not knock things over when trying to pick them up.Functional AbilityFor hearing, patient reportsno loss of hearing. For vision, patient reportsno vision problems. For activities of daily living, patient reportsable to bathe with limited or no assistance,able to contol urination and bowels,able to dress with limited or no assistance,able to feed self with limited or no assistance,able to get out of chair or bed with limited or no assistance,able to groom with limited or no assistance, andable to toilet with limited or no assistance. For instrumental activities of daily living, patient reportsable to do house work with limited or no assistance,able to grocery shop with limited or no assistance,able to manage medications with limited or no assistance,able to manage money with limited or no assistance,able to prepare meals with limited or no assistance, andable to use the phone with limited or no assistance. For falls risk assessment, patient reportsno frequent falls while walking,no fall in the past year,no fall since last visit, andno dizziness/vertigo. For home safety, patient reportsno unsafe ita hazzards,no unsafe stairs,no unsafe gas appliances,working smoke/co detectors,wears protective head gear for biking/high velocity,use of seatbelts,practicing 'safer sex',no vision or hearing loss while driving,no fire arms,has hand bars in the bathroom/shower, andgood lighting in the home. Patient is here for wellness exam and medication refills. Evelyn Ramirez PA-C [address], [place], [address], [place] - [facility] 09/16/2024 09:57:35 10/20/2024 text/html Emergency Depart ment Follow-Up RecordReported [...] needs new Cpap supplies. Evelyn Ramirez PA-C [address], [place], [address], [place] - [facility] 10/20/2024 14:20:37
--- OUTSIDE RECORDS SUMMARY | 2024-12-06 12:51 | XMS_ITS | Clinical Summary ---
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 DVT on Coumadin Therapy I82.90 (ICD-10-CM ) 05/31 Active 05/31 Tasia Edwards Acute embolism and thrombosis of unspecified vein DVT 281830583 (SNOMED CT) 05/31 Inactive 05/31 Evelynjayla Longoria Deep venous thrombosis Obesity 897060103 (SNOMED CT) 05/31 Active 05/31 Andrea Reid Obesity NEPHROLITHIA SIS 37612459 (SNOMED CT) 05/25 Active 05/25 Abi Cornelius Kidney stone LEUKOCYTOSIS 356396223 (SNOMED CT) 05/25 Active 05/25 Abi Cornelius Leukocytosis FEVER 326755481 (SNOMED CT) 05/25 Active 05/25 Abi Cornelius Fever Lumbago 464029093 (SNOMED CT) 05/25 Active 05/25 Abi Cornelius Low back pain DIABETES MELITUS TYPE II E11.9 (ICD-10-CM ) 05/25 Active 05/25 Abi Cornelius Type 2 diabetes mellitus without complications Medications Medication Instructions Start Date Stop Date Generic Name NDC Provider HYDROCODONE-ACETA MINOPHEN 5-325 MG TABS HYDROCODONE-ACETA MINOPHEN 14583360851 Andrea Reid DOCUSATE SODIUM 250 MG CAPS DOCUSATE SODIUM 70439789711 Andrea Reid DOXYCYCLINE HYCLATE 100 MG CAPS DOXYCYCLINE HYCLATE 60625113522 Andrea Reid LOVENOX 120 MG/0.8ML SUBCUTANEOUS SOLUTION ENOXAPARIN SODIUM 38379737472 Andrea Reid COUMADIN 5 MG ORAL TABLET WARFARIN SODIUM 69663574815 Shruthi Sinclair FLOMAX 0.4 MG ORAL CAPSULE TAMSULOSIN HCL 62338428656 Shruthi Sinclair LOVASTATIN 20 MG TABS LOVASTATIN 15361742387 Shruthi Sinclair LISINOPRIL 20 MG TABS LISINOPRIL 55433423524 Shruthi Sinclair ERGOCALCIFEROL 1.25 MG (15663 UT) CAPS ERGOCALCIFEROL 74077444346 Shruthi Sinclair LOVENOX 120 MG/0.8ML SUBCUTANEOUS SOLUTION ENOXAPARIN SODIUM 48536608285 Shruthi Sinclair DOXYCYCLINE HYCLATE 100 MG CAPS DOXYCYCLINE HYCLATE 65165039727 Shruthi Sinclair DOCUSATE SODIUM 250 MG CAPS DOCUSATE SODIUM 00495241920 Shruthi Sinclair PLAVIX 75 MG TABS CLOPIDOGREL BISULFATE 70616852881 Shruthi Sinclair COREG 3.125 MG TABS CARVEDILOL 27719684278 Shruthi Sinclair ASPIRIN 325 MG TABS ASPIRIN 09091597654 Shruthi Sinclair METFORMIN HCL 500 MG TABS METFORMIN HCL 92221013107 Shruthi Sinclair OXYCODONE-ACETAMI NOPHEN 5-325 MG TABS OXYCODONE-ACETAMI NOPHEN 30375611740 Shruthi Sinclair Medications Administered No information available. 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
--- OUTSIDE RECORDS SUMMARY | 2024-12-06 12:51 | XMS_ITS | Data Portability ---
Author Organization [place] [place] [facility] Address [address] [place] [address] Care Team Providers Care Bleach Boiler Puller Name Role Phone FRANKIE QUIROS Physician Scribe YECENIA STONE Primary Care Provider Assessment Encounter Date Assessment Date Assessment LastModified by Organization Details LastModified Time 07/16/2023 07/16/2023 1 episode of josh y atypical sharp and fleeting chest pain. That is 1 episode in 3 months with no nitroglycerin use. He has not chest pain with exertion. Denies shortness of breath. His EKG shows normal sinus rhythm with possible old anterior wall myocardial infarction and nonspecific ST and T-wave changes. No change from baseline. He says he overall feels well. He just recently was diagnosed with prostate cancer. It is very mild at present time. They are just watching it. Last echo showed normal function. Last cardiac catheterization he underwent stenting to left anterior descending. He is felt well. We will continue the Xarelto for paroxysmal atrial fibrillation. We will continue Plavix. He is also on a beta-kristina and amlodipine. Excellent medical therapy. Meds and chart reviewed in full today. Follow-up in Cardiology Clinic in 4 months Continue amlodipine at 5 mg daily Monitor blood pressure and heart rate Blood work as per primary care Follow-up in Cardiology Clinic in 3 months Continue Xarelto at current dose Continue Plavix Continue amiodarone 200 mg daily and Coreg. Patient remains in normal sinus rhythm Consider ischemic evaluation at some point in the future. Patient is relatively asymptomatic at this time Plan: -Continue other current medications. -Continue aggressive risk factor modification. -Recommend LDL less than 100. -Encouraged regular exercise and activity. Patient Education was printed, I have reviewed the Past Medical, Family, and Social Histories along with ROS and all orders in today's record, and have noted any changes. Medications, charts and records reviewed in full today. EKG today shows normal sinus rhythm with a heart rate of 65. Possible old anterior wall myocardial infarction with nonspecific changes. No ST or T-wave changes LAST ECHO: 10/26/2017. Ejection Fraction is 60%. mild calcification and thickening of the aortic valve leaflets with normal aortic valve leaflet mobility and function. no aortic insufficiency. LAST ISCHEMIC EVAL: 05/19/2015 normal exercise EKG mild reduction in functional capacity. Moderate ischemia noted in the inferior and septal ledezma. Transient left ventricular cavity dilation with exercise. Frequent ventricular ectopy at peak exercise and in recovery including premature ventricular contractions, bigeminy, and couplets. Low risk Garrett treadmill score. LAST HEART CATH: 10/28/17 [facility]. LVEDP 7. Critical one-vessel coronary artery disease with critical sequential stenosis noted in the proximal LAD. Patent stent in the mid LAD. Angioplasty and stenting of the proximal LAD. LAST LDL: 10/31/2018- 129 PAST LHC: 07/27/2008 Chen Brock CMA, am scribing for, and in the presence of, Frankie Quiros MD. Frankie Brock M.D. performed the services as described in this documentation, as scribed by Chen Vivas CMA in my presence, and it is both accurate and complete. This note was dictated using Zattoo software. If something is unclear, or does not make sense, please do not hesitate to contact our office at [phone] for clarification. darya Not available 07/16/2023 13:33:43 12/15/2023 12/15/2023 Doing well. The blood pressure slightly elevated today but much better at home. Overall he says he feels well. He is on Plavix and Xarelto. He is on good cardiac medications including amlodipine and carvedilol. We will see him back in 6 months. He has not having any issues. Blood work as per primary care. Meds and chart reviewed in full today Patient Education was printed, I have reviewed the Past Medical, Family, and Social Histories along with ROS and all orders in today's record, and have noted any changes. Medications, charts and records reviewed in full today. PLAN: Continue Plavix and Xarelto Continue amlodipine at current dose. Blood pressure is under good control Continue carvedilol. Maximal medical therapy Monitor blood pressure and heart rate Follow-up in Cardiology Clinic in 6 months EKG at follow-up Blood work as per primary care Continue other current medications. Continue aggressive risk factor modification. Recommend LDL less than 100. Encouraged regular exercise and activity. EK07/16/2023 -showed normal sinus rhythm with a heart rate of 65. Possible old anterior wall myocardial infarction with nonspecific changes. No ST or T-wave changes LAST ECHO: 10/26/2017. Ejection Fraction is 60%. mild calcification and thickening of the aortic valve leaflets with normal aortic valve leaflet mobility and function. no aortic insufficiency. LAST ISCHEMIC EVAL: 05/19/2015 normal exercise EKG mild reduction in functional capacity. Moderate ischemia noted in the inferior and septal ledezma. Transient left ventricular cavity dilation with exercise. Frequent ventricular ectopy at peak exercise and in recovery including premature ventricular contractions, bigeminy, and couplets. Low risk Garrett treadmill score. LAST HEART CATH: 10/28/17 [facility]. LVEDP 7. Critical one-vessel coronary artery disease with critical sequential stenosis noted in the proximal LAD. Patent stent in the mid LAD. Angioplasty and stenting of the proximal LAD. LAST LDL: 10/31/2018- 129 PAST LHC: 07/27/2008 ZEN Brock LPN, I AM SCRIBING FOR, AND IN THE OFFICE/PRESENCE OF, FRANKIE QUIROS MD. IFRANKIE M.D. PERFORMED THE SERVICES DESCRIBED IN THIS DOCUMENTATION, SCRIBED BY ZEN MENDOZA LPN IN MY PRESENCE, AND IT IS BOTH ACCURATE AND COMPLETE. This note was dictated using Zattoo software. If something is unclear, or does not make sense, please do not hesitate to contact our office at [phone] for clarification. darya Not available 12/17/2023 15:22:16 06/14/2024 06/14/2024 patient is post Non-Q-wave myocardial infarction. Still taking Plavix and Xarelto. They did not make a change in that. had 6 stents placed. We do not have the report. His EKG today shows atrial fibrillation with left axis deviation and left anterior hemiblock with poor R-wave progression and possible old anterior wall myocardial infarction with nonspecific changes. No acute changes. Blood pressure and heart rate have been under good control. We do not have an echocardiogram results of the cardiac catheterization. I did review his studies from our emergency room. Stents were done on 06/04/2024 at [facility]. We need to get those results. For some reason they decreased the Xarelto to 10 mg instead of 20. We will readdress at follow-up. I would like to see the records. They increase the carvedilol and he is off amlodipine now. He is still on losartan. Correct dose for the Xarelto would be 20 mg with the atrial fibrillation. Right wrist is well healed. I want to see him back in 2-3 weeks. We need to get the records. We will do full review of the records at that time. He needs to remain on Plavix and Xarelto. Consider increased dose at follow-up on the Xarelto. Patient Education was printed, I have reviewed the Past Medical, Family, and Social Histories along with ROS and all orders in today's record, and have noted any changes. Medications, charts and records reviewed in full today. PLAN: Continue Plavix and Xarelto Continue amlodipine at current dose. Blood pressure is under good control Continue carvedilol. Maximal medical therapy Monitor blood pressure and heart rate Blood work as per primary care Continue other current medications. Continue aggressive risk factor modification. Recommend LDL less than 100. Encouraged regular exercise and activity. Follow-up in Cardiology Clinic in 2-3 weeks Get all records from [facility] for his admission including the cardiac catheterization, echocardiogram and any other cardiac testing EKG 06/14/24 atrial fibrillation with a heart rate of 83. Poor R-wave progression versus old anterior wall myocardial infarction with left axis deviation and left anterior hemiblock. No ST or T-wave changes Six stents placed at outside hospital with cardiac catheterization done 06/04/2024 Echocardiogram from outside hospital not available for review EK07/16/2023 -showed normal sinus rhythm with a heart rate of 65. Possible old anterior wall myocardial infarction with nonspecific changes. No ST or T-wave changes LAST ECHO: 10/26/2017. Ejection Fraction is 60%. mild calcification and thickening of the aortic valve leaflets with normal aortic valve leaflet mobility and function. no aortic insufficiency. LAST ISCHEMIC EVAL: 05/19/2015 normal exercise EKG mild reduction in functional capacity. Moderate ischemia noted in the inferior and septal ledezma. Transient left ventricular cavity dilation with exercise. Frequent ventricular ectopy at peak exercise and in recovery including premature ventricular contractions, bigeminy, and couplets. Low risk Garrett treadmill score. LAST HEART CATH: 10/28/17 [facility]. LVEDP 7. Critical one-vessel coronary artery disease with critical sequential stenosis noted in the proximal LAD. Patent stent in the mid LAD. Angioplasty and stenting of the proximal LAD. LAST LDL: 10/31/2018- 129 PAST LHC: 07/27/2008 IFRANKIE M.D. PERFORMED THE SERVICES DESCRIBED IN THIS DOCUMENTATION This note was dictated using Zattoo software. If something is unclear, or does not make sense, please do not hesitate to contact our office at [phone] for clarification. darya Not available 06/14/2024 12:16:57 07/05/2024 07/05/2024 chest pressure h as improved. I did get the results of his hospitalization. In summary, patient presented with a non-Q-wave myocardial infarction. Had a CT angio of the chest which showed no dissection or aneurysm. Underwent cardiac catheterization with successful PCI with 6 stents placed in the left anterior descending, circumflex and right coronary. Three and a left anterior descending, 1 in the circumflex in 2 in the right coronary artery. On triple therapy with aspirin Plavix and Xarelto. Some of this was in stent stenosis. They increased his dose on carvedilol. Had drug-eluting stent deployment to the proximal mid and distal dominant right coronary artery with drug-eluting stent deployment to the ostial/proximal left anterior descending as well as to the circumflex extending into a large 2nd obtuse marginal branch. Ejection fraction noted to be normal. Blood pressure and heart rate are under excellent control today. We will see him back in Cardiology Clinic in 8-10 weeks Patient Education was printed, I have reviewed the Past Medical, Family, and Social Histories along with ROS and all orders in today's record, and have noted any changes. Medications, charts and records reviewed in full today. PLAN: Continue Plavix and Xarelto Continue amlodipine at current dose. Blood pressure is under good control Continue carvedilol. Maximal medical therapy Monitor blood pressure and heart rate Blood work as per primary care Continue other current medications. Continue aggressive risk factor modification. Recommend LDL less than 100. Encouraged regular exercise and activity. Follow-up in Cardiology Clinic in 8-10 weeks Repeat EKG at follow-up EKG 06/14/24 atrial fibrillation with a heart rate of 83. Poor R-wave progression versus old anterior wall myocardial infarction with left axis deviation and left anterior hemiblock. No ST or T-wave changes Six stents placed at outside hospital with cardiac catheterization done 06/04/2024. Drug-eluting stents 3 were placed in the left anterior descending, 1 to the circumflex in 2 to the right coronary artery. Some of this was for in stent restenosis. Ejection fraction normal. Had full revascularization EK07/16/2023 -showed normal sinus rhythm with a heart rate of 65. Possible old anterior wall myocardial infarction with nonspecific changes. No ST or T-wave changes LAST ECHO: 10/26/2017. Ejection Fraction is 60%. mild calcification and thickening of the aortic valve leaflets with normal aortic valve leaflet mobility and function. no aortic insufficiency. LAST ISCHEMIC EVAL: 05/19/2015 normal exercise EKG mild reduction in functional capacity. Moderate ischemia noted in the inferior and septal ledezma. Transient left ventricular cavity dilation with exercise. Frequent ventricular ectopy at peak exercise and in recovery including premature ventricular contractions, bigeminy, and couplets. Low risk Garrett treadmill score. LAST HEART CATH: 10/28/17 [facility]. LVEDP 7. Critical one-vessel coronary artery disease with critical sequential stenosis noted in the proximal LAD. Patent stent in the mid LAD. Angioplasty and stenting of the proximal LAD. LAST LDL: 10/31/2018- 129 PAST LHC: 07/27/2008 CT CHEST @ [facility] 06/04/2024: FINDINGS: Pulmonary Arteries: Normal. No Pulmonary Emboli. Aorta: Aortic Atherosclerosis. Lungs: Unremarkable. No consolidation. No masses. Pleural Spaces: Unremarkable. No Pneumothorax. No pleural effusion. Heart: Unremarkable. No Cardiomegaly. No Pericardial effusion. Coronary Arteries: Coronary Artery Atherosclerosis. Lymph Nodes; Calcified Mediastinal and Bilatera Hilar Granulomata. No enlarged Lymph nodes. Kidney: Partially imaged simple appearing cysts in the visualized kidneys. Bones/Joints: Degenerative Changes of the Spine. Soft Tissues: Unremarkable Impression: *No CT evidence of thoracic aortic dissection or aneurysm. * Additional Chronic/Non Emergent findings. IFRANKIE M.D. PERFORMED THE SERVICES DESCRIBED IN THIS DOCUMENTATION This note was dictated using Zattoo software. If something is unclear, or does not make sense, please do not hesitate to contact our office at [phone] for clarification. darya Not available 07/05/2024 11:18:32 09/08/2024 09/08/2024 patient is in chronic atrial fibrillation. Fib flutter today. The heart rate is 69 but during my examination appears to be around 50-55. I think we can cut back on the amiodarone 200 mg. We may be able to get rid of this completely as he is in chronic atrial fibrillation. He is on aspirin, Plavix and Xarelto. We will continue this. Underwent multiple stents. Continue carvedilol. He is on maximal medical therapy. His EKG today shows fib/flutter with an old anterior wall infarct with a heart rate of 69. I am not going to make any changes in medical regimen other than cutting back on the amiodarone. We will see him back in 3 months. Consider stopping the amiodarone at follow-up. Continue Xarelto, Plavix and aspirin. At follow-up we will consider getting rid of the amiodarone completely. No other changes in medical regimen. Monitor blood pressure and heart rate. Blood work as per primary care Patient Education was printed, I have reviewed the Past Medical, Family, and Social Histories along with ROS and all orders in today's record, and have noted any changes. Medications, charts and records reviewed in full today. - EKG today reveals Atrial fibrillation/ flutter with a controlled heart rate at 69 with nonspecific changes and old anterior wall myocardial infarction - LAST ECHO: 10/26/2017. Ejection Fraction is 60%. mild calcification and thickening of the aortic valve leaflets with normal aortic valve leaflet mobility and function. no aortic insufficiency. LAST ISCHEMIC EVAL: 05/19/2015 normal exercise EKG mild reduction in functional capacity. Moderate ischemia noted in the inferior and septal ledezma. Transient left ventricular cavity dilation with exercise. Frequent ventricular ectopy at peak exercise and in recovery including premature ventricular contractions, bigeminy, and couplets. Low risk Garrett treadmill score. LAST HEART CATH: Six stents placed at outside hospital with cardiac catheterization done 06/04/2024. Drug-eluting stents 3 were placed in the left anterior descending, 1 to the circumflex in 2 to the right coronary artery. Some of this was for in stent restenosis. Ejection fraction normal. Had full revascularization LAST LDL: 10/31/2018- 129 PAST LHC:10/28/17 [facility]. LVEDP 7. Critical one-vessel coronary artery disease with critical sequential stenosis noted in the proximal LAD. Patent stent in the mid LAD. Angioplasty and stenting of the proximal LAD. CT CHEST @ [facility] 06/04/2024: No CT evidence of thoracic aortic dissection or aneurysm. Plan: Decrease amiodarone 200 mg daily Continue aspirin, Plavix and Xarelto Stop aspirin at follow-up Consider stopping amiodarone at follow-up. Chronic atrial fibrillation Continue carvedilol Continue losartan Continue Zetia. Blood work as per primary care Monitor blood pressure and heart rate Monitor cardiac symptoms Consider echocardiogram at follow-up Follow-up in Cardiology Clinic in 3 months -Continue other current medications. -Continue aggressive risk factor modification. -Recommend LDL less than 70 -Encouraged regular exercise and activity. - I, Chela Ortiz, am scribing for, and in the presence of, Frankie Quiros MD. - I, Frankie Quiros M.D. performed the services as described in this documentation, as scribed by Chela Ortiz in my presence, and it is both accurate and complete. - This note was dictated using Zattoo software. If something is unclear, or does not make sense, please do not hesitate to contact our office at [phone] for clarification. [email or web address] Not available 09/09/2024 07:57:18 Plan of Treatment Reminders Order Date Submit Date Provider Last Modified By Organization Details Last Modified Time Details Appointments None recorded. Lab None recorded. Referral None recorded. Procedures None recorded. Surgeries None recorded. Imaging electrocard iogram 2024 [address], [place], [address], 5 07:57:47 electrocard iogram [address], [place], [address], 5 12:17:13 [facility] [address], [place], [address], 4 13:34:05 Medication Orders None recorded. Patient TargetsNo targets recorded. Patient InstructionsNo instructions recorded. Reason for Referral None Reported. Results Created Date Observation Date Name Description Value Unit Range Abnormal Flag Note LastModifiedBy Organization Detail LastModifiedTime 07/16/19 24 elect rocar diogr am No observ ation record ed. SELINA Amaral [address], [place], [address], 07/16/2023 11:16:48 07/16/19 24 07/16/2023 elect rocar diogr am No observ ation record ed. SELINA Amaral [address], [place], [address], 07/16/2023 16:42:21 06/15/19 25 elect rocar diogr am No observ ation record ed. SELINA Amaral [address], [place], [address], 06/14/2024 11:49:15 06/15/19 25 06/14/2024 elect rocar diogr am No observ ation record ed. [email or web address] Not Available 2024 12:32:08 07/02/19 25 06/04/2024 imagi ng/di agnos tic resul t No observ ation record ed. [email or web address] Not Available 09:14:07 07/02/19 25 06/04/2024 imagi ng/di agnos tic resul t No observ ation record ed. [email or web address] Not Available 09:52:55 07/02/19 25 06/04/2024 elect rocar diogr am, routi ne ECG, 12 leads min; inter preta tion and repor t (PROC ) No observ ation record ed. [email or web address] Not Available 09:55:29 07/02/19 25 06/04/2024 cardi ac acous tic wavef orm recor ding with autom ated kavitha sis and gener ation of coron joslyn arter y disea se risk score (PROC ) No observ ation record ed. [email or web address] Not Available 09:59:33 09/09/19 25 elect rocar diogr am No observ ation record ed. SELINA Amaral [address], [place], [address], 09/08/2024 11:04:06 09/10/19 elect rocar diogr am No observ ation record ed. [email or web address] Not Available 09/09 08:17:46 Result Notes None recorded. 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 Active 2022 Frankie Quiros MD [address] [facility],[address], [place], [address], [facility] - [facility] [place] 3 13:38:06 Hyperlipidemia 57737811 Active 2022 Frankie Quiros MD [address], [place], [address], [place] [facility] [place] 3 13:38:15 Diastolic dysfunction 5501388 Active 2022 Frankie Quiros MD [address] [place] [address],[address], [place], [address], [place] [facility] & [place] 3 13:38:20 Paroxysmal atrial fibrillation 807997146 Active 2022 Frankie Quiros MD [address] [place] [address],[address], [place], [address], [place] [facility] & [place] 3 13:38:31 Electrocardiog hemalatha abnormal 334667078 Active 2022 Frankie Quiros MD [address] [place] [address],[address], [place], [address], [place] [facility] [place] 3 13:38:36 Essential hypertension 17840079 Active 2023 Frankie Quiros MD [address] [place] [address],[address], [place], [address], [place] [facility] & [place] 4 13:33:51 Chest pain 01245501 Active 2024 Frankie Quiros MD [address] [place] [address],[address], [place], [address], [place] [facility] & [place] 5 11:18:43 Chronic atrial fibrillation 698944385 Active 2024 Frankie Quiros MD [address] [place] [address],[address], [place], [address], [place] [facility] & [place] 5 07:57:27 Problem Notes None recorded. Procedures Surgical History Date Name Laterality Status Provider Name and Address Organization Details Recorded Time 10/29/19 18 Cardiac Catheterization completed Chen Vivas [place] - [facility] [place] 12/31/2022 11:48:22 03/03/19 10 Cancer Surgery completed Sarah PHILLIP - [facility] [place] 01/06/2023 10:42:44 07/28/19 09 Cardiac Catheterization completed Chen Vivas [place] [facility] [place] 12/31/2022 11:57:42 03/03/19 09 Colonoscopy completed Sarah [facility] [place] & [place] 01/06/2023 10:42:44 Back Surgery completed Sarah [facility] & [place] 01/06/2023 10:42:44 Imaging Results None recorded. Procedure Notes None recorded. Medical Equipment None Reported. Allergies Allergen ID Allergen Name Allergen Category Reaction Reaction Severity Criticality Documentation Date Start Date Code Code System Note Provider Name and Address Organization Details Recorded Time 555268 Bactrim medicatio n swelling severe Not available 06/14/2024 96530 9 RxNorm tongu e swell s up and split s Tiffany MARJAN [facility] [place] & [place] 5 11:39:14 634189 Product containin g 3-hydroxy -3-methyl glutaryl- coenzyme A reductase inhibitor (product) medicatio n muscle cramps moderate unabletoasse ss 06/14/2024 15070 009 SNOMED Tiffany Mino león, MARJAN [facility] & [place] 5 11:39:44 Medications Name Sig Start Date Stop Date Status Note LastModified by Organization Details LastModified Time losartan 50 mg tablet TAKE ONE (1) TABLET BY MOUTH TWICE DAILY active Not Available Not Available No t Available metformin 500 mg tablet TAKE ONE (1) TABLET TWICE A DAY BY ORAL ROUTE FOR 90 DAYS. 06/14 completed Not Available Not Available Not Available prednisone 10 mg tablet TAKE ONE (1) TABLET EVERY DAY BY ORAL ROUTE FOR FIVE (5) DAYS. 06/14 completed Not Available Not Available Not Available carvedilol 12.5 mg tablet TAKE ONE (1) TABLET TWICE A DAY BY ORAL ROUTE. active Not Available Not Available No t Available amiodarone 200 mg tablet TAKE 1 TABLET BY MOUTH EVERY DAY active Not Available Not Available No t Available clopidogrel 75 mg tablet TAKE ONE (1) TABLET EVERY DAY BY ORAL ROUTE active Not Available Not Available No t Available amlodipine 5 mg tablet TAKE ONE (1) TABLET BY MOUTH EVERY DAY 09/08 completed Not Available Not Available Not Available ciprofloxac in 500 mg tablet TAKE 1 TABLET TWICE A DAY FOR 3 DAYS STARTING DAY PRIOR TO PROCEDURE 07/15 completed Not Available Not Available Not Available spironolact one 25 mg tablet TAKE 1 TABLET BY MOUTH ONCE DAILY FOR 30 DAYS active Not Available Not Available No t Available carvedilol 3.125 mg tablet TAKE 1 TABLET BY MOUTH TWICE DAILY 06/14 completed Not Available Not Available Not Available triamcinolo ne acetonide 0.1 % topical ointment APPLY OINTMENT TOPICALLY TO AFFECTED AREA TWICE DAILY FOR 14 DAYS 01/03 completed Not Available Not Available Not Available nitroglycer in 0.4 mg sublingual tablet DISSOLVE 1 TABLET UNDER TONGUE EVERY 5 MINUTES FOR 3 DOSES NEEDED FOR CHEST PAIN-NO RELIEF CALL 911 active Not Available Not Available No t Available betamethaso ne dipropionat e 0.05 % topical cream APPLY A THIN LAYER TO THE AFFECTED AREA(S) BY TOPICAL ROUTE ONCE DAILY 06/14 completed Not Available Not Available Not Available gabapentin 300 mg capsule TAKE 1 CAPSULE BY MOUTH THREE TIMES DAILY FOR BACK PAIN 01/03 completed Not Available Not Available Not Available bumetanide 1 mg tablet TAKE 1 TABLET BY MOUTH ONCE DAILY active Not Available Not Available No t Available lisinopril 40 mg tablet TAKE ONE (1) TABLET TWICE A DAY BY ORAL ROUTE FOR 90 DAYS. 06/14 completed Not Available Not Available Not Available doxycycline hyclate 100 mg tablet TAKE 1 TABLET BY MOUTH TWICE DAILY FOR 5 DAYS 09/08 completed Not Available Not Available Not Available hydroxyzine pamoate 25 mg capsule TAKE ONE (1) CAPSULE TWICE A DAY BY ORAL ROUTE NEEDED FOR 7 DAYS. 06/14 completed Not Available Not Available Not Available ezetimibe 10 mg tablet TAKE ONE (1) TABLET EVERY DAY BY ORAL ROUTE FOR 90 DAYS. active Not Available Not Available No t Available aspirin 81 mg - 1 tablet by mouth daily 09/08 completed Not Available Not Available Not Available Januvia 50 mg tablet TAKE 1 TABLET BY MOUTH EVERY DAY active Not Available Not Available No t Available cholecalcif matias (vitamin D3) 50 mcg (2,000 unit) tablet TAKE 1 TABLET BY MOUTH EVERY DAY active Not Available Not Available No t Available Xarelto 10 mg tablet TAKE ONE (1) TABLET EVERY DAY BY ORAL ROUTE FOR 90 DAYS. 09/08 completed Not Available Not Available Not Available Xarelto 15 mg tablet TAKE 1 TABLET ORALLY DAILY; MUST ADMINISTE R WITH EVENING MEAL active Not Available Not Available No t Available Repatha SureClick 140 mg/mL subcutaneou s pen injector INJECT 140MG SUBCUTANE OUSLY EVERY TWO (2) WEEKS active Not Available Not Available No t Available Vitals Date Recorded Body height Body mass index (BMI) Body weight Oxygen saturation Oxygen saturation in Arterial blood by Pulse oximetry Heart rate Systolic And Diastolic Provider Name and Address Organization Details Last Updated DateTime 5 187.96 cm 39.9 kg/m2 365374. 79 g 96 % 96 % 83 /min 146/82 mm[Hg] Tiffany PHILLIP - [facility] & [place] 5 11:37:52 Date Recorded Body height Body mass index (BMI) Body weight Oxygen saturation Oxygen saturation in Arterial blood by Pulse oximetry Heart rate Systolic And Diastolic Provider Name and Address Organization Details Last Updated DateTime 5 187.96 cm 39.4 kg/m2 333615. 86 g 95 % 95 % 67 /min 110/84 mm[Hg] Monet PHILLIP - [facility] & [place] 5 09:45:36 Date Recorded Body height Body mass index (BMI) Body weight Oxygen saturation Oxygen saturation in Arterial blood by Pulse oximetry Heart rate Systolic And Diastolic Provider Name and Address Organization Details Last Updated DateTime 4 187.96 cm 38.1 kg/m2 082858. 22 g 97 % 97 % 76 /min 142/80 mm[Hg] Monet PHILLIP [facility] & [place] 4 11:20:18 Date Recorded Body height Body mass index (BMI) Body weight Oxygen saturation Oxygen saturation in Arterial blood by Pulse oximetry Heart rate Systolic And Diastolic Provider Name and Address Organization Details Last Updated DateTime 5 187.96 cm 39.1 kg/m2 581646. 8 g 92 % 92 % 85 /min 140/86 mm[Hg] Chela PHILLIP - [facility] & [place] 5 11:01:29 Date Recorded Body height Body mass index (BMI) Body weight Oxygen saturation Oxygen saturation in Arterial blood by Pulse oximetry Heart rate Systolic And Diastolic Provider Name and Address Organization Details Last Updated DateTime 187.96 cm 37.6 kg/m2 649537. 56 g 96 % 96 % 73 /min 160/80 mm[Hg] Juani Coulter [facility] & [place] 10:47:27 Social History Question Answer Notes LastModified by Organizat ion Details LastModified Time Tobacco Smoking Status Never Smoker Sarah león, [facility] & [place] 01/06/2023 10:42:44 What Was The Date Of Your Most Recent Tobacco Screening? 03/07/2023 Information not available 03/10/2023 Are You Passively Exposed To Smoke? No [email or web address] Information not available 01/06/2023 Sex: Unknown Functional Status Question Answer Note LastModified by Organizat ion Details LastModified Time Do you use any illicit or recreational drugs? No [email or web address] Information not available 01/06/2023 What is your level of alcohol consumption? None Information not available 01/06/2023 Do you or have you ever used smokeless tobacco? Never used smokeless tobacco Information not available 03/10/2023 What is your exercise level? Moderate [email or web address] Information not available 01/06/2023 Mental Status None recorded. Family History Nothing Reported. Medical History Condition Response Diabetes Y Cancer Y High Cholesterol Y Arrhythmia Y Hypertension Y Past Encounters Encounter ID Performer Location Encounter Start Date Encounter Closed Date Diagnosis/Indication Diagnosis SNOMED-CT Code Diagnosis ICD10 Code Diagnosis IMO Codes Diagnosis Note [id number] MD ELIZABET Dumont [address] [place] [address] [place] [address] 01/06/2023 09:22:32 01/06/2023 10:02:31 Essential hypertension 76668155 I10 Coronary arteriosclerosis 43786929 I25.10 Hyperlipidemia 91614820 E78.5 Diastolic dysfunction [address] percutaneous transluminal coronary angioplasty 136281892 Z98.61 Paroxysmal atrial fibrillation 279562122 I48.0 Electrocar diogram abnormal 799461860 R94.31 [id number] MD ELIZABET Dumont [address] [place] [address] 03/10/2023 09:48:11 03/10/2023 10:33:43 Coronary arteriosclerosis 70560302 I25.10 Diastolic dysfunction 35 82730 I51.9 Electrocar diogram abnormal 969462354 R94.31 Paroxysmal atrial fibrillation 738306171 I48.0 Hyperlipidemia 19351687 E78.5 [id number] Frankie Quiros MD [address] [place]Z [address] [place] [address] 6 07/16/2023 10:45:33 07/16/2023 11:34:14 Paroxysmal atrial fibrillation 282486636 I48.0 Coronary arteriosclerosis 18399799 I25.10 Diastolic dysfunction 35 44378 I51.9 Electrocar diogram abnormal 239135961 R94.31 Hyperlipidemia 21181016 E78.5 Essential hypertension 87154531 I10 [id number] Frankie Quiros MD [address] [place]Z [address] [place] [address] 6 12/15/2023 10:23:46 12/15/2023 11:17:10 Paroxysmal atrial fibrillation 975277682 I48.0 Coronary arteriosclerosis 93716841 I25.10 Diastolic dysfunction 35 90714 I51.9 Electrocar diogram abnormal 089997119 R94.31 Hyperlipidemia 25542148 E78.5 Essential hypertension 28177851 I10 [id number] Frankie Quiros MD [address] [place]Z [address] [place] [address] 6 06/14/2024 11:24:07 06/14/2024 12:02:30 Paroxysmal atrial fibrillation 185797618 I48.0 Coronary arteriosclerosis 03263079 I25.10 Diastolic dysfunction 35 24412 I51.9 Electrocar diogram abnormal 556044952 R94.31 Hyperlipidemia 17192092 E78.5 Essential hypertension 35523543 I10 Chest pain 18325855 R07. 89 61111 [id number] Frankie Quiros MD [address] [place]Z [address] [place] [address] 6 07/05/2024 09:21:17 07/05/2024 10:05:04 Paroxysmal atrial fibrillation 634450392 I48.0 Coronary arteriosclerosis 91330631 I25.10 Diastolic dysfunction 35 71772 I51.9 Electrocar diogram abnormal 685792130 R94.31 Hyperlipidemia 42197659 E78.5 Essential hypertension 01289532 I10 Chest pain 42352298 R07. 89 [id number] improved. [id number] Frankie Quiros MD [address] [place] [address] 09/08/2024 10:56:21 09/08/2024 11:22:55 Coronary arteriosclerosis 04446261 I25.10 Diastolic dysfunction 35 05517 I51.9 Electrocar diogram abnormal 351348387 R94.31 Hyperlipidemia 36789546 E78.5 Essential hypertension 51859453 I10 Chronic at rial fibrillation 099735713 I48.20 118109 Health Concerns Section Related Observation LastModified by Organization Detai ls LastModified Time None Recorded Concern Status LastModified by Organization Details LastModified Time None Recorded Advance Directives Directive None Recorded Payers Insurance Date Sequence Insurance Name Policy Number Policy Pearson Covered Member ID Pearson Member ID Guarantor Name 09/02/2024 2 [facility] - [facility] LONG TERM (MEDICARE SUPPLEMENT) Marco Antonio Awad [id number] Marco Antonio Awad 09/05/2024 [place] Marco Antonio Awad [id number] Marco Antonio Awad 09/05/2024 1 [place] Marco Antonio Awad [id number] Marco Antonio Awad 07/05/2024 2 [place] [id number] Marco Antonio Awad [id number] Marco Antonio Awad Notes Date Note Type Note Provider Name and Address Organization Details Recorded Time 07/16/2023 text/html doing well. No chest pain pressure or tightness. No shortness of breath. Blood pressure and heart rate have been under good control. He had 1 episode of chest pain with a couple of days ago. He has not had any since then. It was very brief and only lasted a couple of seconds. Dull. He has not had any further. No nitroglycerin use Frankie Quiros MD [address] [place] [address],[address], [place], [address], [facility] [place] & [place] 07/16/2023 13:34:09 12/15/2023 text/html doing very well. No chest pain pressure or tightness. No shortness of breath. Blood pressure and heart rate are under excellent control Frankie Quiros MD [address] [place] [address],[address], [place], [address], [facility] & [place] 12/17/2023 15:22:39 06/14/2024 text/html Patient is here for follow-up. He actually presented to our emergency room 2 weeks ago and was told that he had abdominal wall tenderness. He was having lower chest pain at that time. No leak of cardiac enzymes. He ended up presenting again 5 days later to an outside emergency room where his enzymes were slightly leaked and he had a non-Q-wave myocardial infarction. Admitted. Had 6 stents placed. He has had some dull 1/10 chest since that time. No significant pressure or tightness. Overall he is felt better. Here today for follow-up Frankie Quiros MD [address] [place] [address],[address], [place], [address], [facility] & [place] 06/14/2024 12:17:15 07/05/2024 text/html doing well. No chest pain pressure or tightness. No shortness of breath. Here today go over the records from the outside hospital which I did receive. Had a non-Q-wave myocardial infarction. Had a number of stents placed looks like in the left anterior descending, circumflex and right coronary artery. He is done well. Blood pressure and heart rate are under good control Frankie Quiros MD [address] [place] [address],[address], [place], [address], [facility] & [place] 07/05/2024 11:18:59 09/08/2024 text/html doing well. Occasional dizziness if he bends over and stands up quickly. No chest pain pressure or tightness. Some mild dyspnea which is no change from baseline. I did get all his records from the outside hospital where he underwent multiple stents. He has been feeling well Frankie Quiros MD [address] [place] [address],[address], [place], [address], [facility] & [place] 09/09/2024 07:57:50
--- NOTE | 2024-12-06 13:00 | CA_ITS ---
APPROVED REPORT EXAM: Comprehensive 2D, Doppler, and color-flow Echocardiogram Allied Health Professional: Enedelia Houston CRT Ht: 6 ft 3 in Wt: 303lbs BSA: 2.62 BP: 155/96 mmHg Indications: Atrial Fibrillation, Diabetes, CAD, Hyperlipidemia, Hypertension/HDD, stents cath scheduled 12/09/24 ef 55% echo 07-30-24 2D Dimensions LA Volume 47.30 mL LA Volume Index 17.60 mL/m2 (M/F) 16- M-Mode Dimensions RVDd 3.80 cm (0.9-2.6) LA Diam 5.53 cm (1.9-4.0) LVDd 5.52 cm (3.5-5.7) LVDs 4.18 cm (3.5-5.7) IVSd 1.48 cm (0.6-1.1) PWd 1.21 cm (0.6-1.1) EF (Teich) 47.70% FS 24.30% EDV (Teich) 148.70 mL ESV (Teich) 77.70 mL LV Diastology E Decel Time 140 (160-240 msec) E/A Ratio 2.16 MED A' 8.60 cm/s LAT A' 7.10 cm/s Aortic Valve AO Peak GR. 8.50 mmHg Mitral Valve MV E Max Sukhi. 122.0 (40-130 cm/s) MV A Velocity 57.0 (40-130 cm/s) E/A Ratio 2.16 MV PHT 41.0 ms Pulmonary Valve PV Peak Velocity 207.0 (50-150 cm/s) Tricuspid Valve TR P. Velocity 213.00 cm/s RAP Estimate 10.00 mmHg RVSP 28.20 mmHg Left Ventricle The left ventricle is normal size. Left ventricular systolic function is low-normal. There is increased left ventricular wall thickness. There is normal LV segmental wall motion. The left ventricular diastolic function is normal. LVEF is 50% Right Ventricle The right ventricle is mildly dilated. The right ventricular systolic function is normal. Atria The left atrium is mildly dilated. The right atrium is mildly dilated. There is no color Doppler evidence of interatrial shunt. Aortic Valve The aortic valve is mildly thickened. There is no hemodynamically significant aortic valvular stenosis. Trace aortic regurgitation is present. Mitral Valve The mitral valve is normal in structure. No evidence of mitral valve stenosis. Mild to moderate mitral regurgitation is present. Tricuspid Valve The tricuspid valve leaflets are thin and pliable. Trace tricuspid regurgitation. There is insufficient TR jet to estimate RVSP. Pulmonic Valve The pulmonary valve is grossly normal in structure. Trace pulmonic valve regurgitation is present. Great Vessels The aortic root is normal in size. IVC is normal in size and collapses >50% with inspiration. Pericardium There is no pericardial effusion. Other Information Study Quality: Fair Conclusion Low-normal LV systolic function. Mild RV dilation. Mild biatrial dilation. Mild to moderate MR. Electronically signed by : Jaylin Erazo MD 12/06/2024 22:23:02
== END 2024-12-06 23:59 | disposition home or self-care (01) ==
LOC: RT 12:49
PROVIDERS: PCP Physician Assistant; Visit Provider Internal Medicine
DX: I11.9 Hypertensive heart disease without heart failure (principal); I34.0 Nonrheumatic mitral (valve) insufficiency; I25.118 Atherosclerotic heart disease of native coronary artery with other forms of angina pectoris; I48.0 Paroxysmal atrial fibrillation; E78.5 Hyperlipidemia, unspecified; E11.9 Type 2 diabetes mellitus without complications
CPT/HCPCS: 93306

== ENCOUNTER 2024-12-09 07:59 | Day surgery (SDC) | payer MEDICARE, OTHER, SELFPAY ==
[2024-12-09] VITALS (13 sets, daily range): BP systolic 126–156; BP diastolic 82–98; PULSE 65–95; RESP 12–20; TEMP 36.1–36.6; O2SAT 91–97; BMI 37.8
--- NOTE | 2024-12-09 07:23 | IR_ITS ---
APPROVED REPORT Patient Location: Outpatient PROCEDURES Left heart catheterization Left ventriculogram Selective coronary angiogram Drug-eluting stent deployment to the proximal LAD Drug-eluting stent deployment to the mid LAD in a noncontiguous manner Drug-eluting stent deployment to the ostial proximal first diagonal artery INDICATION Coronary artery disease, Angina pectoris, Abnormal Myoview Informed consent was obtained prior to the procedure. COMPLICATIONS None Estimated Blood Loss: Less than 10 mls TECHNIQUE One percent lidocaine used to anesthetize the right anterior aspect of the wrist. The right radial artery was accessed via the Seldinger technique. A 6 Green[place]ic sheath was placed in the right radial artery. 2.5 mg of Verapamil, 800 mcg of nitroglycerin, 1mg Lidocaine and 5000 U Heparin were given through the arterial sheath. The JL3 catheter was also used to perform left heart catheterization, left ventriculogram and selective coronary angiogram. At the end of the diagnostic angiogram therapeutic heparin was administered giving a therapeutic ACT and the guide catheter was placed on the left anterior descending artery followed by Choice PT extra-support wire placed into the large first diagonal artery and another wire placed into the distal LAD. A 2.5 x 18 mm Guerrero frontier stent was deployed in the mid to distal LAD and deployed at 20 katelyn reducing the severe stenosis to 0%. A 2.5 x 12 mm compliant balloon was then deployed in the proximal LAD extending the first diagonal artery at 18 katelyn to predilate. Following this a 2.5 x 22 mm Guerrero frontier stent was placed into the proximal LAD barely hanging out of the diagonal artery and into the proximal diagonal artery and deployed at 20 katelyn. Following this a 2.5 x 12 mm compliant balloon was used to open the struts that were sticking out into the LAD from the diagonal artery stent. A 3.5 x 26 mm [place] frontier stent was then deployed in the proximal to mid LAD crossing the first diagonal artery and deployed at 20 katelyn. An additional 4 mm x 12 mm noncompliant balloon was deployed at 24 katelyn in the proximal LAD to post dilate. This did not give satisfactory angiographic results therefore a 4.5 x 8 mm balloon was deployed at 24 katelyn in the same area. This expanded the stent somewhat but not completely to satisfaction therefore a 5 mm x 8 mm noncompliant balloon was deployed at 24 katelyn in the area of interest in the proximal LAD to further post dilate. Much improved angiographic results were obtained with better stent expansion in the proximal LAD. After achieving excellent angiograph results the apparatus was removed the sheath was removed and hemostasis was achieved using TR banding patient was transferred to the postop porting in stable condition ANGIOGRAPHIC RESULTS The left main artery Has a distal 10% stenosis The left anterior descending artery Has a proximal 40% stenosis followed by a mid vessel concentric 70 to 80% stenosis. Large first diagonal artery has an ostial proximal 90% stenosis The circumflex artery Large and dominant with proximal 30 and 40% stenosis with diffuse 20% stenoses in the obtuse marginal arteries The right coronary artery Nondominant with stents in the proximal to mid segment which have minimal in-stent restenosis and a 20% distal transitioning stenosis The HINSON ventriculogram reveals Reduced ejection fraction at 30 to 35% The left ventricular end-diastolic pressure 20 mmHg IMPRESSION Coronary disease as described above Successful stenting of the proximal and mid LAD in a noncontiguous manner as described above Successful bifurcating stenting of the proximal LAD extending into a large first diagonal artery severe to critical disease reduced to 0% with bifurcating stents as described above Significantly reduced ejection fraction Elevated LVEDP PLAN 1. Dual antiplatelet therapy 2. Consider LifeVest if clinically appropriate 3. Repeat ejection fraction in 90 days to determine if patient is a candidate for defibrillator 4. Standard therapy for LV dysfunction 5. LDL less than 55 achieved with high intensity statin 6. Cardiac rehabilitation 7. Avoidance of tobacco products Electronically signed by : Andrea Raman MD 12/09/2024 14:48:58
[2024-12-09] MEDS: HEPARIN 1,000 UNITS/500ML NS (CATH LAB) 3000 UNIT IV (10:24)
[2024-12-09] MEDS: HEPARIN 1,000 UNITS/ML 10ML VIAL (CATH LAB) 5000 UNIT IV (10:24)
[2024-12-09] MEDS: VERAPAMIL 2.5MG/ML 2ML VIAL 2.5 MG IV (10:24)
[2024-12-09] MEDS: 0.9 % SODIUM CHLORIDE 500 ML 25 ML IV (10:25)
[2024-12-09] MEDS: LIDOCAINE 1% 10ML MDV 10 ML IJ (10:25)
[2024-12-09] MEDS: NITROGLYCERIN 800MCG/8ML SYR (CATH LAB) 800 MCG IA (10:25)
[2024-12-09] MEDS: FENTANYL 100MCG/2ML VIAL 50 MCG IV (10:38)
[2024-12-09] MEDS: MIDAZOLAM HCL 1MG/ML 5ML VIAL 1 MG IV (10:38)
--- NOTE | 2024-12-09 11:37 | SUR.PHASEII ---
report to Becky GREGORY, patient taken to ICU for recovery/discharge
[2024-12-09] MEDS: IOPAMIDOL-370 (76%);100ML BOTTLE 110 ML IV (13:20)
--- NOTE | 2024-12-09 14:45 | PC.NURSE ---
2mL of air removed from radial band. Radial band removed. Surggical site cleaned. Surgical site clean, dry, and intact. Dressing of tegaderm and gauze applied at this time.
[2024-12-09 15:34] LABS: CATHL Activated Clotting Time > 400 SEC (74-125)
== END 2024-12-09 15:55 | disposition home or self-care (01) ==
PROVIDERS: PCP Physician Assistant; Visit Provider Internal Medicine
PROC: 4A023N7 Measurement of Cardiac Sampling and Pressure, Left Heart, Percutaneous Approach (ICD-10-PCS; CPT 93452; principal; 2024-12-09 07:30)
DX: I25.118 Atherosclerotic heart disease of native coronary artery with other forms of angina pectoris (principal); R06.09 Other forms of dyspnea; R93.1 Abnormal findings on diagnostic imaging of heart and coronary circulation; I48.0 Paroxysmal atrial fibrillation; I50.9 Heart failure, unspecified; I11.0 Hypertensive heart disease with heart failure; E11.9 Type 2 diabetes mellitus without complications; E78.49 Other hyperlipidemia; Z85.038 Personal history of other malignant neoplasm of large intestine; Z79.82 Long term (current) use of aspirin; Z79.84 Long term (current) use of oral hypoglycemic drugs; Z79.01 Long term (current) use of anticoagulants; Z79.02 Long term (current) use of antithrombotics/antiplatelets; Z79.890 Hormone replacement therapy; Z79.899 Other long term (current) drug therapy; Z88.1 Allergy status to other antibiotic agents; Z88.2 Allergy status to sulfonamides; Z88.8 Allergy status to other drugs, medicaments and biological substances; Z95.5 Presence of coronary angioplasty implant and graft
CPT/HCPCS: 85347; 92928; 92929; 93458; 99152; 99153; C1725; C1760; C1769; C1874; C9600; C9601; J1200; J1644; J2003; J3010; J7040; Q9967